=== PATIENT | female | born 1955 | race Caucasian/White ===

== ENCOUNTER 2018-03-17 12:40 | Inpatient (IN) | payer MEDICARE, OTHER ==
[~2018-03-17] VITALS: Ht 167.6 cm; Wt 80.7 kg
[2018-03-17] VITALS (7 sets, daily range): BP systolic 93–108; BP diastolic 34–57
[2018-03-17] MEDS: K, MAG and/or Phos replacement - Verify level? MC SCH (08:00)
[~2018-03-17 12:40] MED LIST: NORepinephrine bitartrate 8 MG in NS 250 ML BAG (32 mcg/ml) IV ONE; etomidate 2mg/ml inj. ONE; rocuronium 10mg/ml inj IV ONE
[2018-03-17 16:52] LABS: BASOPHILS # (AUTO) 0.1 X10'3 (0-0.2); BASOPHILS % (AUTO) 0.6 % (0-1); EOSINOPHILS # (AUTO) 0.1 X10'3 (0-0.9); EOSINOPHILS % (AUTO) 0.7 % (0-6); HEMATOCRIT 30.8 % (35.0-45.0); HEMOGLOBIN 10.1 g/dl (12.0-16.0); LYMPHOCYTES # (AUTO) 0.2 X10'3 (1.1-4.8); LYMPHOCYTES % (AUTO) 1.7 % (21-51); MEAN CORPUSCULAR HEMOGLOBIN 31.4 PG (27.0-31.0); MEAN CORPUSCULAR HGB CONC 32.7 % (33.0-36.5); MEAN PLATELET VOLUME 5.9 FL (7.4-10.4); MONOCYTES # (AUTO) 0.3 X10'3 (0-0.9); MONOCYTES % (AUTO) 2.1 % (2-12); NEUTROPHILS # (AUTO) 13.1 X10'3 (1.8-7.7); NEUTROPHILS % (AUTO) 94.9 % (42-75); PLATELET COUNT 425 X10'3 (140-440); WHITE BLOOD COUNT 13.8 X10'3 (4.5-11.0)
[2018-03-17 17:04] LABS: ALANINE AMINOTRANSFERASE 20 U/L (12-78); ALBUMIN 1.4 G/DL (3.4-5.0); ALBUMIN/GLOBULIN RATIO 0.4 (1.1-1.5); ALKALINE PHOSPHATASE 124 IU/L (46-116); ANION GAP 12 (8-16); ASPARTATE AMINO TRANSFERASE 27 U/L (10-37); BILIRUBIN,TOTAL 0.3 MG/DL (0.1-1.0); BLOOD UREA NITROGEN 26 MG/DL (7-18); BUN/CREATININE RATIO 6.8 (6.6-38.0); CALCIUM 7.9 MG/DL (8.5-10.1); CHLORIDE 99 MMOL/L (99-107); CREATININE 3.81 MG/DL (0.40-0.90); GLUCOSE 115 MG/DL (70-104); POTASSIUM 4.4 MMOL/L (3.5-5.1); SODIUM 127 MMOL/L (135-145); TOTAL CARBON DIOXIDE 16.4 MMOL/L (24-32); TOTAL PROTEIN 5.2 G/DL (6.4-8.2); eGFR 12 ML/MIN
[2018-03-17 17:26] LABS: TOTAL CELLS COUNTED 100
[2018-03-17 17:27] LABS: PLATELET ESTIMATE NORMAL
[2018-03-17 17:28] LABS: TOXIC GRANULATION 4+; TOXIC VACUOLATION 1+
[2018-03-17] MEDS ORDERED: MIDAZolam 5mg/ml 2ml vial ONE (17:28)
[2018-03-17] MEDS ORDERED: NORepinephrine 8mg/ 250ml NS 250 ML IV ONE (17:45)
[2018-03-17] MEDS ORDERED: magnesium 4gm in 100ml NS 100 ML IV PRN (18:10)
[2018-03-17] MEDS ORDERED: morphine 4 MG/ML inj SYRINge IV PRN (18:10)
[2018-03-17] MEDS ORDERED: Neutra Phos packet PO PRN (18:10)
[2018-03-17] MEDS ORDERED: magnesium Cl slow-release 64mg tablet PO PRN (18:10)
[2018-03-17] MEDS ORDERED: magnesium 1gm/100ml D5W IVPB 100 ML IV PRN (18:10)
[2018-03-17] MEDS ORDERED: potassium Cl 20 mEq SR tablet PO PRN ×2 (18:10)
[2018-03-17] MEDS ORDERED: morphine 2 MG/ML inj. syringe IV PRN (18:10)
[2018-03-17] MEDS ORDERED: sodium phosphate inj. 30 MMOL in dextrose 5%-water 250 ML IV PRN (18:10)
[2018-03-17] MEDS: midazolam 100mg in NS 100ml 100 ML IV PRN (18:34)
[2018-03-17 18:51] LABS: ABG BASE EXCESS -11.2 mmol/L (-2.0-3.0); ABG HCO3 15.3 mmol/L (22.0-26.0); ABG OXYGEN SATURATION 98.9 % (95-98); ABG PCO2 (T) 35.5 mmHg (32.0-45.0); ABG PH (T) 7.249 (7.350-7.450); ABG PO2 (T) 199.8 mmHg (83-108); ALLEN'S TEST Positive; FCOHb 0.3 % (0.5-1.5); FMetHb 0.2 % (0.3-1.12); FO2Hb 98.4 % (94-100); MINUTE VOLUME 7 L/min; PATIENT TEMPERATURE 36.4; PEEP 5 cm H2O; RESPIRATORY RATE 16 b/min; RESPIRATORY RATE (OBSERVED) 16 b/min; TIDAL VOLUME 450 mL; TOTAL HEMOGLOBIN 10.4 G/dl (12.0-16.0)
[2018-03-17] MEDS: FENTANYL-0.9 % NACL/PF 100 ML IV PRN (18:57)
[2018-03-17] MEDS ORDERED: vancomycin/NS 1 GM ADD-VANTAGE 250 ML IV ONE (19:05)
[2018-03-17] MEDS ORDERED: rocuronium 10mg/ml inj IV ONE (19:24)
[2018-03-17] MEDS ORDERED: vancomycin/NS 1 GM ADD-VANTAGE 250 ML X 1 DOSE IV PRN (19:40)
[2018-03-17] MEDS ORDERED: epiNEPHrine 0.1mg/ml 10ml syringe ONE (19:41)
[2018-03-17] MEDS ORDERED: sevoflurane 250ml liquid IH ONE (19:41)
[2018-03-17] MEDS ORDERED: vancomycin/NS 1 GM ADD-VANTAGE 250 ML IV SCH (20:00)
[2018-03-17] MEDS: piperacillin/tazo 3.375gm/50ml 50 ML IV SCH (21:51)
[2018-03-17] MEDS: famotidine/PF 10 mg/ml inj IV SCH (21:54)
[2018-03-17] MEDS: normal saline 1000ml 1,000 ML IV SCH (22:39)
[2018-03-18] VITALS (24 sets, daily range): BP systolic 66–114; BP diastolic 36–57
[2018-03-18] MEDS: piperacillin/tazo 3.375gm/50ml 50 ML IV SCH ×3 (00:02→16:54)
[2018-03-18 00:39] LABS: BASOPHILS % (AUTO) 0.3 % (0-1); EOSINOPHILS % (AUTO) 0.2 % (0-6); HEMOGLOBIN 9.8 g/dl (12.0-16.0); INR 1.5 INR; LYMPHOCYTES # (AUTO) 0.2 X10'3 (1.1-4.8); MEAN PLATELET VOLUME 6.2 FL (7.4-10.4); MONOCYTES # (AUTO) 0.3 X10'3 (0-0.9); PARTIAL THROMBOPLASTIN TIME 49 SECONDS (22-32); PROTHROMBIN TIME 15.5 SECONDS (9.0-12.0)
[2018-03-18 00:42] LABS: HEMATOCRIT 29.6 % (35.0-45.0); LYMPHOCYTES % (AUTO) 1.6 % (21-51); MEAN CORPUSCULAR HEMOGLOBIN 32.4 PG (27.0-31.0); MEAN CORPUSCULAR HGB CONC 33.2 % (33.0-36.5); MEAN CORPUSCULAR VOLUME 97.6 FL (78-98); MONOCYTES % (AUTO) 2.3 % (2-12); NEUTROPHILS # (AUTO) 13.9 X10'3 (1.8-7.7); NEUTROPHILS % (AUTO) 95.6 % (42-75); PLATELET COUNT 437 X10'3 (140-440); RED BLOOD COUNT 3.04 X10'6 (4.20-5.60); RED CELL DISTRIBUTION WIDTH 14.1 % (11.5-14.5); WHITE BLOOD COUNT 14.4 X10'3 (4.5-11.0)
[2018-03-18 00:45] LABS: ALANINE AMINOTRANSFERASE 17 U/L (12-78); ALBUMIN 1.1 G/DL (3.4-5.0); ALBUMIN/GLOBULIN RATIO 0.3 (1.1-1.5); ALKALINE PHOSPHATASE 104 IU/L (46-116); ANION GAP 15 (8-16); ASPARTATE AMINO TRANSFERASE 27 U/L (10-37); BILIRUBIN,TOTAL 0.4 MG/DL (0.1-1.0); BLOOD UREA NITROGEN 26 MG/DL (7-18); BUN/CREATININE RATIO 7.1 (6.6-38.0); CALCIUM 7.2 MG/DL (8.5-10.1); CHLORIDE 102 MMOL/L (99-107); CREATININE 3.64 MG/DL (0.40-0.90); GLUCOSE 126 MG/DL (70-104); MAGNESIUM 1.9 MG/DL (1.5-2.4); PHOSPHORUS 4.4 MG/DL (2.3-4.5); POTASSIUM 4.3 MMOL/L (3.5-5.1); SODIUM 132 MMOL/L (135-145); TOTAL CARBON DIOXIDE 15.5 MMOL/L (24-32); TOTAL PROTEIN 4.4 G/DL (6.4-8.2); eGFR 13 ML/MIN
[2018-03-18] MEDS ORDERED: normal saline 1000ml 1,000 ML IV ONE (00:55)
[2018-03-18 03:31] LABS: OXYGEN SATURATION (MIXED VEN) 79.7 % (60-80)
[2018-03-18 03:35] LABS: ABG BASE EXCESS -14.2 mmol/L (-2.0-3.0); ABG HCO3 12.7 mmol/L (22.0-26.0); ABG PCO2 (T) 32.2 mmHg (32.0-45.0); ABG PH (T) 7.211 (7.350-7.450); ABG PO2 (T) 126.3 mmHg (83-108); FCOHb 0.3 % (0.5-1.5); FMetHb 0.1 % (0.3-1.12); FO2Hb 97.6 % (94-100); MINUTE VOLUME 7 L/min; PATIENT TEMPERATURE 36.2; PEEP 5 cm H2O; RESPIRATORY RATE 16 b/min; RESPIRATORY RATE (OBSERVED) 16 b/min; TIDAL VOLUME 450 mL; TOTAL HEMOGLOBIN 10.1 G/dl (12.0-16.0)
[2018-03-18] MEDS ORDERED: sodium bicarbonate (8.4%) 1 mEq/ml syringe IV ONE (03:45)
[2018-03-18] MEDS ORDERED: albumin (Human) 5% 250ml BOTTLE IV STA (03:45)
[2018-03-18 05:01] LABS: TOTAL CELLS COUNTED 100
[2018-03-18 05:03] LABS: BURR CELLS 1+; PLATELET ESTIMATE NORMAL
[2018-03-18 05:04] LABS: TOXIC GRANULATION 3+; TOXIC VACUOLATION 1+
[2018-03-18] MEDS: K, MAG and/or Phos replacement - Verify level? MC SCH (08:00)
[2018-03-18] MEDS: famotidine/PF 10 mg/ml inj IV SCH ×2 (09:11→20:43)
[2018-03-18] MEDS: normal saline 1000ml 1,000 ML IV SCH (09:11)
[2018-03-18] MEDS ORDERED: [UNRECOGNIZED DRUG - REMARK] PO NR (10:00)
[2018-03-18] MEDS ORDERED: BUDE10.2 IH (10:12)
[2018-03-18] MEDS ORDERED: LISI-600 PO (10:12)
[2018-03-18] MEDS: FENTANYL-0.9 % NACL/PF 100 ML IV PRN (11:01)
[2018-03-18] MEDS ORDERED: vancomycin/NS 1 GM ADD-VANTAGE 250 ML X 1 DOSE IV ONE (11:45)
[2018-03-18] MEDS ORDERED: [UNRECOGNIZED DRUG - REMARK] PO SCH (11:48)
[2018-03-18] MEDS: sodium bicarbonate (8.4%) inj. 150 MEQ in dextrose 5%-water 1,000 ML IV SCH (12:23)
[2018-03-18] MEDS: vasopressin inj. 60 UNIT in normal saline 100ml IV soln 97 ML IV SCH (18:44)
[2018-03-18] MEDS ORDERED: Dextrose 10%-water IV solution 1,000 ML IV PRN (21:00)
[2018-03-18] MEDS: [UNRECOGNIZED DRUG - REMARK] IV SCH ×4 (21:09)
[2018-03-18] MEDS: NORepinephrine 8mg/ 250ml NS 250 ML IV SCH (21:56)
[2018-03-18 23:52] LABS: ALANINE AMINOTRANSFERASE 14 U/L (12-78); ALBUMIN 1.3 G/DL (3.4-5.0); ALBUMIN/GLOBULIN RATIO 0.5 (1.1-1.5); ALKALINE PHOSPHATASE 79 IU/L (46-116); ANION GAP 13 (8-16); ASPARTATE AMINO TRANSFERASE 24 U/L (10-37); BILIRUBIN,TOTAL 0.3 MG/DL (0.1-1.0); BLOOD UREA NITROGEN 27 MG/DL (7-18); BUN/CREATININE RATIO 6.3 (6.6-38.0); CALCIUM 6.8 MG/DL (8.5-10.1); CHLORIDE 104 MMOL/L (99-107); CREATININE 4.28 MG/DL (0.40-0.90); GLUCOSE 175 MG/DL (70-104); MAGNESIUM 1.8 MG/DL (1.5-2.4); PHOSPHORUS 4.4 MG/DL (2.3-4.5); POTASSIUM 4.2 MMOL/L (3.5-5.1); SODIUM 134 MMOL/L (135-145); TOTAL PROTEIN 4.1 G/DL (6.4-8.2); TRIGLYCERIDES 72 MG/DL (20-135); eGFR 10 ML/MIN
[2018-03-19] VITALS (29 sets, daily range): BP systolic 86–157; BP diastolic 36–67
[2018-03-19] MEDS: piperacillin/tazo 3.375gm/50ml 50 ML IV SCH ×3 (00:02→15:31)
[2018-03-19] MEDS: FENTANYL-0.9 % NACL/PF 100 ML IV PRN ×2 (01:04→15:53)
[2018-03-19] MEDS: midazolam 100mg in NS 100ml 100 ML IV PRN (01:04)
[2018-03-19] MEDS: VANCOMYCIN LEVEL IV SCH (03:00)
[2018-03-19 04:02] LABS: BASOPHILS % (AUTO) 0 % (0-1); EOSINOPHILS # (AUTO) 0.3 X10'3 (0-0.9); HEMATOCRIT 24.7 % (35.0-45.0); HEMOGLOBIN 8.1 g/dl (12.0-16.0); LYMPHOCYTES # (AUTO) 0.2 X10'3 (1.1-4.8); LYMPHOCYTES % (AUTO) 1.5 % (21-51); MEAN CORPUSCULAR HEMOGLOBIN 31.2 PG (27.0-31.0); MEAN CORPUSCULAR HGB CONC 32.7 % (33.0-36.5); MEAN CORPUSCULAR VOLUME 95.4 FL (78-98); MEAN PLATELET VOLUME 6.1 FL (7.4-10.4); MONOCYTES # (AUTO) 0.3 X10'3 (0-0.9); MONOCYTES % (AUTO) 2.2 % (2-12); NEUTROPHILS # (AUTO) 14.1 X10'3 (1.8-7.7); NEUTROPHILS % (AUTO) 94.3 % (42-75); PLATELET COUNT 321 X10'3 (140-440); RED BLOOD COUNT 2.59 X10'6 (4.20-5.60); RED CELL DISTRIBUTION WIDTH 15.5 % (11.5-14.5); WHITE BLOOD COUNT 14.9 X10'3 (4.5-11.0)
[2018-03-19 04:07] LABS: INR 1.6 INR; PARTIAL THROMBOPLASTIN TIME 48 SECONDS (22-32); PROTHROMBIN TIME 16.7 SECONDS (9.0-12.0)
[2018-03-19 04:16] LABS: ABG HCO3 16.3 mmol/L (22.0-26.0); ABG OXYGEN SATURATION 97.4 % (95-98); ABG PCO2 (T) 32.9 mmHg (32.0-45.0); ABG PH (T) 7.312 (7.350-7.450); ALLEN'S TEST Positive; FCOHb 0.1 % (0.5-1.5); FMetHb 0.1 % (0.3-1.12); FO2Hb 97.2 % (94-100); MINUTE VOLUME 7 L/min; PEEP 5 cm H2O; RESPIRATORY RATE 16 b/min; RESPIRATORY RATE (OBSERVED) 16 b/min; TIDAL VOLUME 450 mL; TOTAL HEMOGLOBIN 8.8 G/dl (12.0-16.0)
[2018-03-19 04:19] LABS: ALANINE AMINOTRANSFERASE 21 U/L (12-78); ALBUMIN 1.3 G/DL (3.4-5.0); ALBUMIN/GLOBULIN RATIO 0.4 (1.1-1.5); ALKALINE PHOSPHATASE 78 IU/L (46-116); ANION GAP 11 (8-16); ASPARTATE AMINO TRANSFERASE 23 U/L (10-37); BILIRUBIN,TOTAL 0.4 MG/DL (0.1-1.0); BLOOD UREA NITROGEN 28 MG/DL (7-18); BUN/CREATININE RATIO 6.3 (6.6-38.0); CALCIUM 6.8 MG/DL (8.5-10.1); CHLORIDE 105 MMOL/L (99-107); CREATININE 4.45 MG/DL (0.40-0.90); GLUCOSE 197 MG/DL (70-104); MAGNESIUM 1.8 MG/DL (1.5-2.4); PHOSPHORUS 4.3 MG/DL (2.3-4.5); POTASSIUM 4.2 MMOL/L (3.5-5.1); SODIUM 133 MMOL/L (135-145); TOTAL CARBON DIOXIDE 16.8 MMOL/L (24-32); TOTAL PROTEIN 4.2 G/DL (6.4-8.2); VANCOMYCIN,RANDOM 20.3 UG/ML; eGFR 10 ML/MIN
[2018-03-19] MEDS: K, MAG and/or Phos replacement - Verify level? MC SCH (06:52)
[2018-03-19] MEDS: sodium bicarbonate (8.4%) inj. 150 MEQ in dextrose 5%-water 1,000 ML IV SCH (07:24)
[2018-03-19] MEDS: famotidine/PF 10 mg/ml inj IV SCH ×2 (07:56→19:51)
[2018-03-19] MEDS ORDERED: NORepinephrine bitartrate 8 MG in NS 250 ML BAG (32 mcg/ml) IV ONE (09:50)
[2018-03-19] MEDS ORDERED: INSULIN R 100 UNIT in NS 100ML (1 UNIT/1 ML) BAG IV ONE (09:50)
[2018-03-19] MEDS ORDERED: sevoflurane 250ml liquid IH ONE (09:50)
[2018-03-19] MEDS ORDERED: rocuronium 10mg/ml inj IV ONE (10:08)
[2018-03-19] MEDS ORDERED: insulin regular, human vial - multi-dose ONE (10:38)
[2018-03-19] MEDS: NORepinephrine 8mg/ 250ml NS 250 ML IV SCH (11:47)
[2018-03-19] MEDS ORDERED: dextrose 50%-water 50ml dispensing syringe IV PRN ×2 (14:15)
[2018-03-19] MEDS ORDERED: MESSAGE TO PHARMACY PO ONE (14:15)
[2018-03-19] MEDS ORDERED: glucagon, human recombinant 1mg kit SUBCUT PRN (14:15)
[2018-03-19] MEDS ORDERED: dextrose ORAL solution 15 GM/59 ML bottle PO PRN ×2 (14:15)
[2018-03-19] MEDS: insulin regular, human vial - multi-dose SQ SCH ×2 (15:08→19:54)
[2018-03-19] MEDS ORDERED: Duosol 4K/3 Ca (w/calcium) 5,000 ML HE SCH (16:18)
[2018-03-19] MEDS ORDERED: calcium chloride inj. 1,000 MG in normal saline 100ml IV soln 100 ML IV PRN (16:20)
[2018-03-19] MEDS ORDERED: sodium phosphate inj. 30 MMOL in normal saline 250ml IV soln 250 ML IV PRN (16:20)
[2018-03-19] MEDS ORDERED: magnesium 4gm in 100ml NS 100 ML IV PRN (16:20)
[2018-03-19] MEDS: BICARB DIALYSIS W/CALCIUM SOL 5,000 ML HE SCH ×2 (16:56→16:57)
[2018-03-19] MEDS ORDERED: citrate dextrose 1000ml IV sol 1,000 ML IV PRN (18:15)
[2018-03-19] MEDS: Duosol 4k/NO Calcium 5,000 ML HE SCH ×3 (19:35→19:37)
[2018-03-19] MEDS: vasopressin inj. 60 UNIT in normal saline 100ml IV soln 97 ML IV SCH (19:51)
[2018-03-19 21:09] LABS: BASOPHILS # (AUTO) 0.1 X10'3 (0-0.2); BASOPHILS % (AUTO) 1.1 % (0-1); EOSINOPHILS # (AUTO) 0.2 X10'3 (0-0.9); EOSINOPHILS % (AUTO) 1.3 % (0-6); LYMPHOCYTES # (AUTO) 0.2 X10'3 (1.1-4.8); LYMPHOCYTES % (AUTO) 1.6 % (21-51); MEAN CORPUSCULAR HEMOGLOBIN 31.6 PG (27.0-31.0); MEAN CORPUSCULAR HGB CONC 32.7 % (33.0-36.5); MEAN CORPUSCULAR VOLUME 96.5 FL (78-98); MEAN PLATELET VOLUME 6.1 FL (7.4-10.4); MONOCYTES # (AUTO) 0.2 X10'3 (0-0.9); MONOCYTES % (AUTO) 1.8 % (2-12); NEUTROPHILS # (AUTO) 11.6 X10'3 (1.8-7.7); NEUTROPHILS % (AUTO) 94.2 % (42-75); PLATELET COUNT 200 X10'3 (140-440); RED BLOOD COUNT 2.22 X10'6 (4.20-5.60); RED CELL DISTRIBUTION WIDTH 15.4 % (11.5-14.5); WHITE BLOOD COUNT 12.3 X10'3 (4.5-11.0)
[2018-03-19 21:16] LABS: HEMATOCRIT 21.5 % (35.0-45.0)
[2018-03-19 21:20] LABS: ANION GAP 13 (8-16); BLOOD UREA NITROGEN 34 MG/DL (7-18); BUN/CREATININE RATIO 7.4 (6.6-38.0); CHLORIDE 102 MMOL/L (99-107); CREATININE 4.59 MG/DL (0.40-0.90); GLUCOSE 266 MG/DL (70-104); MAGNESIUM 1.7 MG/DL (1.5-2.4); PHOSPHORUS 4.1 MG/DL (2.3-4.5); POTASSIUM 4.2 MMOL/L (3.5-5.1); SODIUM 133 MMOL/L (135-145); TOTAL CARBON DIOXIDE 18.2 MMOL/L (24-32); eGFR 10 ML/MIN
[2018-03-19] MEDS: insulin glargine (Lantus) pen - multi-dose SQ SCH (21:48)
[2018-03-19] MEDS: citrate dextrose 1000ml IV sol 1,000 ML IV PRN (23:00)
[2018-03-19] MEDS: calcium chloride inj. 10,000 MG in normal saline 500ml IV soln 400 ML IV PRN (23:00)
[2018-03-19 23:56] LABS: LARGE PLATELETS FEW; PLATELET ESTIMATE NORMAL; TOTAL CELLS COUNTED 100
[2018-03-19 23:57] LABS: ANISOCYTOSIS FEW; HYPOCHROMASIA 1+; TOXIC GRANULATION 1+
[2018-03-20] VITALS (25 sets, daily range): BP systolic 98–125; BP diastolic 46–64
[2018-03-20] MEDS: piperacillin/tazo 3.375gm/50ml 50 ML IV SCH ×3 (00:05→15:45)
[2018-03-20] MEDS: midazolam 100mg in NS 100ml 100 ML IV PRN (00:50)
[2018-03-20] MEDS: citrate dextrose 1000ml IV sol 1,000 ML IV PRN ×7 (01:17→21:21)
[2018-03-20] MEDS: insulin regular, human vial - multi-dose SQ SCH ×4 (02:35→21:30)
[2018-03-20] MEDS: [UNRECOGNIZED DRUG - REMARK] IV SCH ×4 (02:36)
[2018-03-20 02:55] LABS: HEMOGLOBIN A1C 5.7 % (4.5-6.2)
[2018-03-20 02:58] LABS: INR 1.4 INR; PARTIAL THROMBOPLASTIN TIME 49 SECONDS (22-32); PROTHROMBIN TIME 14.5 SECONDS (9.0-12.0)
[2018-03-20 03:00] LABS: ALANINE AMINOTRANSFERASE 15 U/L (12-78); ALBUMIN 1.1 G/DL (3.4-5.0); ALBUMIN/GLOBULIN RATIO 0.4 (1.1-1.5); ALKALINE PHOSPHATASE 66 IU/L (46-116); ANION GAP 8 (8-16); ASPARTATE AMINO TRANSFERASE 25 U/L (10-37); BILIRUBIN,TOTAL 0.5 MG/DL (0.1-1.0); BLOOD UREA NITROGEN 29 MG/DL (7-18); BUN/CREATININE RATIO 8.1 (6.6-38.0); CALCIUM 7.2 MG/DL (8.5-10.1); CHLORIDE 105 MMOL/L (99-107); CREATININE 3.56 MG/DL (0.40-0.90); GLUCOSE 252 MG/DL (70-104); MAGNESIUM 2.6 MG/DL (1.5-2.4); PHOSPHORUS 3.3 MG/DL (2.3-4.5); PREALBUMIN 5.4 MG/DL (19-36); SODIUM 135 MMOL/L (135-145); TOTAL CARBON DIOXIDE 21.8 MMOL/L (24-32); TRIGLYCERIDES 43 MG/DL (20-135); VANCOMYCIN,RANDOM 12.8 UG/ML; eGFR 13 ML/MIN
[2018-03-20] MEDS: VANCOMYCIN LEVEL IV SCH (03:00)
[2018-03-20 03:20] LABS: HEMATOCRIT 26.9 % (35.0-45.0); HEMOGLOBIN 8.9 g/dl (12.0-16.0); MEAN CORPUSCULAR HEMOGLOBIN 29.9 PG (27.0-31.0); MEAN CORPUSCULAR VOLUME 90.4 FL (78-98); RED BLOOD COUNT 2.98 X10'6 (4.20-5.60); RED CELL DISTRIBUTION WIDTH 20.5 % (11.5-14.5); WHITE BLOOD COUNT 16.2 X10'3 (4.5-11.0)
[2018-03-20 03:36] LABS: ABG BASE EXCESS -8.6 mmol/L (-2.0-3.0); ABG HCO3 18.7 mmol/L (22.0-26.0); ABG OXYGEN SATURATION 94.5 % (95-98); ABG PCO2 (T) 44.8 mmHg (32.0-45.0); ABG PH (T) 7.234 (7.350-7.450); ABG PO2 (T) 76.2 mmHg (83-108); ALLEN'S TEST Positive; FCOHb 0.2 % (0.5-1.5); FMetHb 0.1 % (0.3-1.12); FO2Hb 94.2 % (94-100); MINUTE VOLUME 8 L/min; PATIENT TEMPERATURE 36.3; PEEP 5 cm H2O; RESPIRATORY RATE 16 b/min; RESPIRATORY RATE (OBSERVED) 16 b/min; TIDAL VOLUME 450 mL
[2018-03-20 03:55] LABS: PLATELET COUNT 70 X10'3 (140-440)
[2018-03-20 03:58] LABS: TOTAL CELLS COUNTED 100
[2018-03-20 03:59] LABS: ANISOCYTOSIS 2+; BURR CELLS FEW; PLATELET ESTIMATE DECREASED; POLYCHROMASIA 1+; TOXIC GRANULATION 2+
[2018-03-20 04:00] LABS: POIKILOCYTOSIS 1+
[2018-03-20] MEDS: Duosol 4k/NO Calcium 5,000 ML HE SCH ×10 (04:56→23:50)
[2018-03-20] MEDS: famotidine/PF 10 mg/ml inj IV SCH ×2 (07:16→21:21)
[2018-03-20] MEDS: K, MAG and/or Phos replacement - Verify level? MC SCH (07:23)
[2018-03-20 07:25] LABS: BASOPHILS % (AUTO) 0 % (0-1); EOSINOPHILS # (AUTO) 0.4 X10'3 (0-0.9); EOSINOPHILS % (AUTO) 2.5 % (0-6); HEMOGLOBIN 9.4 g/dl (12.0-16.0); LYMPHOCYTES # (AUTO) 0.3 X10'3 (1.1-4.8); LYMPHOCYTES % (AUTO) 1.7 % (21-51); MEAN CORPUSCULAR HEMOGLOBIN 29.6 PG (27.0-31.0); MEAN CORPUSCULAR HGB CONC 32.3 % (33.0-36.5); MEAN CORPUSCULAR VOLUME 91.9 FL (78-98); MEAN PLATELET VOLUME 7.1 FL (7.4-10.4); MONOCYTES # (AUTO) 0.3 X10'3 (0-0.9); MONOCYTES % (AUTO) 1.6 % (2-12); NEUTROPHILS % (AUTO) 94.2 % (42-75); PLATELET COUNT 88 X10'3 (140-440); RED BLOOD COUNT 3.16 X10'6 (4.20-5.60); RED CELL DISTRIBUTION WIDTH 20.8 % (11.5-14.5); WHITE BLOOD COUNT 15.9 X10'3 (4.5-11.0)
[2018-03-20 07:30] LABS: ALBUMIN 1.2 G/DL (3.4-5.0); ANION GAP 9 (8-16); BLOOD UREA NITROGEN 24 MG/DL (7-18); BUN/CREATININE RATIO 7.9 (6.6-38.0); CHLORIDE 104 MMOL/L (99-107); CREATININE 3.03 MG/DL (0.40-0.90); GLUCOSE 210 MG/DL (70-104); MAGNESIUM 2.3 MG/DL (1.5-2.4); PHOSPHORUS 2.8 MG/DL (2.3-4.5); POTASSIUM 3.9 MMOL/L (3.5-5.1); SODIUM 135 MMOL/L (135-145); TOTAL CARBON DIOXIDE 21.6 MMOL/L (24-32); eGFR 16 ML/MIN
[2018-03-20] MEDS ORDERED: vancomycin/NS 1 GM ADD-VANTAGE 250 ML X 1 DOSE IV ONE (08:00)
[2018-03-20 11:05] LABS: ALBUMIN 1.2 G/DL (3.4-5.0); ANION GAP 9 (8-16); BLOOD UREA NITROGEN 23 MG/DL (7-18); BUN/CREATININE RATIO 8.4 (6.6-38.0); CHLORIDE 103 MMOL/L (99-107); CREATININE 2.73 MG/DL (0.40-0.90); GLUCOSE 327 MG/DL (70-104); MAGNESIUM 2.1 MG/DL (1.5-2.4); PHOSPHORUS 3.1 MG/DL (2.3-4.5); POTASSIUM 4.2 MMOL/L (3.5-5.1); SODIUM 135 MMOL/L (135-145); TOTAL CARBON DIOXIDE 22.8 MMOL/L (24-32); eGFR 18 ML/MIN
[2018-03-20 11:14] LABS: BASOPHILS % (AUTO) 0.1 % (0-1); EOSINOPHILS # (AUTO) 0.5 X10'3 (0-0.9); EOSINOPHILS % (AUTO) 2.9 % (0-6); HEMATOCRIT 28.1 % (35.0-45.0); HEMOGLOBIN 9.4 g/dl (12.0-16.0); LYMPHOCYTES # (AUTO) 0.3 X10'3 (1.1-4.8); LYMPHOCYTES % (AUTO) 1.7 % (21-51); MEAN CORPUSCULAR HEMOGLOBIN 30.1 PG (27.0-31.0); MEAN CORPUSCULAR HGB CONC 33.2 % (33.0-36.5); MEAN CORPUSCULAR VOLUME 90.5 FL (78-98); MEAN PLATELET VOLUME 6.4 FL (7.4-10.4); MONOCYTES # (AUTO) 0.3 X10'3 (0-0.9); NEUTROPHILS # (AUTO) 14.5 X10'3 (1.8-7.7); NEUTROPHILS % (AUTO) 93.3 % (42-75); PLATELET COUNT 107 X10'3 (140-440); RED BLOOD COUNT 3.11 X10'6 (4.20-5.60); RED CELL DISTRIBUTION WIDTH 21.2 % (11.5-14.5); WHITE BLOOD COUNT 15.6 X10'3 (4.5-11.0)
[2018-03-20] MEDS: calcium chloride inj. 10,000 MG in normal saline 500ml IV soln 400 ML IV PRN (11:51)
[2018-03-20] MEDS: NORepinephrine 8mg/ 250ml NS 250 ML IV SCH (14:59)
[2018-03-20 15:07] LABS: BASOPHILS # (AUTO) 0.1 X10'3 (0-0.2); BASOPHILS % (AUTO) 0.6 % (0-1); EOSINOPHILS # (AUTO) 0.5 X10'3 (0-0.9); EOSINOPHILS % (AUTO) 3.7 % (0-6); HEMATOCRIT 27.2 % (35.0-45.0); HEMOGLOBIN 8.9 g/dl (12.0-16.0); LYMPHOCYTES # (AUTO) 0.3 X10'3 (1.1-4.8); LYMPHOCYTES % (AUTO) 2.3 % (21-51); MEAN CORPUSCULAR HEMOGLOBIN 29.7 PG (27.0-31.0); MEAN CORPUSCULAR HGB CONC 32.9 % (33.0-36.5); MEAN CORPUSCULAR VOLUME 90.4 FL (78-98); MEAN PLATELET VOLUME 7.6 FL (7.4-10.4); MONOCYTES # (AUTO) 0.3 X10'3 (0-0.9); MONOCYTES % (AUTO) 2.6 % (2-12); NEUTROPHILS # (AUTO) 12.1 X10'3 (1.8-7.7); NEUTROPHILS % (AUTO) 90.8 % (42-75); PLATELET COUNT 74 X10'3 (140-440); RED BLOOD COUNT 3.01 X10'6 (4.20-5.60); RED CELL DISTRIBUTION WIDTH 21.1 % (11.5-14.5); WHITE BLOOD COUNT 13.4 X10'3 (4.5-11.0)
[2018-03-20 15:20] LABS: ALBUMIN 1.1 G/DL (3.4-5.0); ANION GAP 7 (8-16); BLOOD UREA NITROGEN 22 MG/DL (7-18); BUN/CREATININE RATIO 9.6 (6.6-38.0); CHLORIDE 103 MMOL/L (99-107); CREATININE 2.29 MG/DL (0.40-0.90); GLUCOSE 294 MG/DL (70-104); MAGNESIUM 2.1 MG/DL (1.5-2.4); PHOSPHORUS 2.6 MG/DL (2.3-4.5); POTASSIUM 4.1 MMOL/L (3.5-5.1); SODIUM 135 MMOL/L (135-145); TOTAL CARBON DIOXIDE 25.3 MMOL/L (24-32); eGFR 22 ML/MIN
[2018-03-20 21:21] LABS: BASOPHILS # (AUTO) 0.2 X10'3 (0-0.2); BASOPHILS % (AUTO) 0.9 % (0-1); EOSINOPHILS # (AUTO) 0.6 X10'3 (0-0.9); EOSINOPHILS % (AUTO) 4.1 % (0-6); HEMATOCRIT 27.8 % (35.0-45.0); LYMPHOCYTES # (AUTO) 0.3 X10'3 (1.1-4.8); MEAN CORPUSCULAR HEMOGLOBIN 29.6 PG (27.0-31.0); MEAN CORPUSCULAR HGB CONC 32.5 % (33.0-36.5); MEAN CORPUSCULAR VOLUME 90.8 FL (78-98); MEAN PLATELET VOLUME 7.1 FL (7.4-10.4); MONOCYTES # (AUTO) 0.4 X10'3 (0-0.9); MONOCYTES % (AUTO) 2.2 % (2-12); NEUTROPHILS # (AUTO) 14.5 X10'3 (1.8-7.7); NEUTROPHILS % (AUTO) 90.8 % (42-75); PLATELET COUNT 102 X10'3 (140-440); RED BLOOD COUNT 3.06 X10'6 (4.20-5.60); RED CELL DISTRIBUTION WIDTH 20.9 % (11.5-14.5)
[2018-03-20] MEDS: insulin glargine (Lantus) pen - multi-dose SQ SCH (21:32)
[2018-03-20 21:41] LABS: ALBUMIN 1.1 G/DL (3.4-5.0); ANION GAP 8 (8-16); BLOOD UREA NITROGEN 19 MG/DL (7-18); BUN/CREATININE RATIO 9.3 (6.6-38.0); CHLORIDE 104 MMOL/L (99-107); CREATININE 2.05 MG/DL (0.40-0.90); GLUCOSE 135 MG/DL (70-104); PHOSPHORUS 2.1 MG/DL (2.3-4.5); SODIUM 136 MMOL/L (135-145); TOTAL CARBON DIOXIDE 24.4 MMOL/L (24-32); eGFR 25 ML/MIN
[2018-03-20] MEDS: FENTANYL-0.9 % NACL/PF 100 ML IV PRN (21:43)
[2018-03-20 21:50] LABS: POTASSIUM 4.1 MMOL/L (3.5-5.1)
[2018-03-20] MEDS: piperacillin/tazobactam inj. 2.25 GM in normal saline 50ml IV IV SCH (23:48)
[2018-03-21] VITALS (26 sets, daily range): BP systolic 104–148; BP diastolic 48–66
[2018-03-21] MEDS: citrate dextrose 1000ml IV sol 1,000 ML IV PRN ×7 (02:25→22:45)
[2018-03-21] MEDS: calcium chloride inj. 10,000 MG in normal saline 500ml IV soln 400 ML IV PRN ×2 (02:25→18:02)
[2018-03-21] MEDS: VANCOMYCIN LEVEL IV SCH (03:00)
[2018-03-21] MEDS: insulin regular, human vial - multi-dose SQ SCH ×4 (03:01→20:45)
[2018-03-21 03:02] LABS: HEMATOCRIT 26.8 % (35.0-45.0); HEMOGLOBIN 8.9 g/dl (12.0-16.0); MEAN CORPUSCULAR HEMOGLOBIN 30.1 PG (27.0-31.0); MEAN CORPUSCULAR HGB CONC 33.3 % (33.0-36.5); MEAN CORPUSCULAR VOLUME 90.6 FL (78-98); MEAN PLATELET VOLUME 6.9 FL (7.4-10.4); PLATELET COUNT 83 X10'3 (140-440); RED BLOOD COUNT 2.96 X10'6 (4.20-5.60); RED CELL DISTRIBUTION WIDTH 20.6 % (11.5-14.5); WHITE BLOOD COUNT 15.1 X10'3 (4.5-11.0)
[2018-03-21] MEDS: [UNRECOGNIZED DRUG - REMARK] IV SCH ×4 (03:09)
[2018-03-21 03:14] LABS: INR 1.2 INR; PARTIAL THROMBOPLASTIN TIME 36 SECONDS (22-32); PROTHROMBIN TIME 12.7 SECONDS (9.0-12.0)
[2018-03-21 03:22] LABS: ALANINE AMINOTRANSFERASE 26 U/L (12-78); ALBUMIN 1.1 G/DL (3.4-5.0); ALBUMIN/GLOBULIN RATIO 0.3 (1.1-1.5); ALKALINE PHOSPHATASE 69 IU/L (46-116); ANION GAP 7 (8-16); ASPARTATE AMINO TRANSFERASE 33 U/L (10-37); BILIRUBIN,TOTAL 0.2 MG/DL (0.1-1.0); BLOOD UREA NITROGEN 18 MG/DL (7-18); CALCIUM 8.7 MG/DL (8.5-10.1); CHLORIDE 105 MMOL/L (99-107); GLUCOSE 114 MG/DL (70-104); MAGNESIUM 1.9 MG/DL (1.5-2.4); PHOSPHORUS 1.9 MG/DL (2.3-4.5); SODIUM 137 MMOL/L (135-145); TOTAL CARBON DIOXIDE 25.5 MMOL/L (24-32); TOTAL PROTEIN 4.6 G/DL (6.4-8.2); VANCOMYCIN,RANDOM 13.4 UG/ML; eGFR 29 ML/MIN
[2018-03-21 03:31] LABS: POTASSIUM 3.9 MMOL/L (3.5-5.1)
[2018-03-21 03:47] LABS: ANISOCYTOSIS 3+; PLATELET ESTIMATE DECREASED; POLYCHROMASIA FEW; TOTAL CELLS COUNTED 100; TOXIC GRANULATION 2+; TOXIC VACUOLATION 1+
[2018-03-21 03:56] LABS: ABG BASE EXCESS -3.8 mmol/L (-2.0-3.0); ABG HCO3 21.8 mmol/L (22.0-26.0); ABG OXYGEN SATURATION 94.7 % (95-98); ABG PCO2 (T) 39.2 mmHg (32.0-45.0); ABG PH (T) 7.357 (7.350-7.450); ABG PO2 (T) 67.9 mmHg (83-108); FMetHb 0.3 % (0.3-1.12); FO2Hb 94.4 % (94-100); MINUTE VOLUME 9 L/min; PATIENT TEMPERATURE 35.7; PEEP 5 cm H2O; RESPIRATORY RATE 20 b/min; RESPIRATORY RATE (OBSERVED) 20 b/min; TIDAL VOLUME 450 mL; TOTAL HEMOGLOBIN 10.1 G/dl (12.0-16.0)
[2018-03-21] MEDS: sodium phosphate inj. 15 MMOL in dextrose 5%-water 150 ML IV PRN ×2 (05:31→16:57)
[2018-03-21] MEDS: vasopressin inj. 60 UNIT in normal saline 100ml IV soln 97 ML IV SCH (05:31)
[2018-03-21] MEDS: piperacillin/tazobactam inj. 2.25 GM in normal saline 50ml IV IV SCH ×2 (08:00→16:22)
[2018-03-21] MEDS: K, MAG and/or Phos replacement - Verify level? MC SCH (08:00)
[2018-03-21] MEDS ORDERED: vancomycin inj 1,250 MG in normal saline 250ml IV soln 250 ML IV PRN (08:10)
[2018-03-21] MEDS: Duosol 4k/NO Calcium 5,000 ML HE SCH ×4 (08:17→20:40)
[2018-03-21] MEDS ORDERED: vancomycin inj 1,250 MG in normal saline 250ml IV soln 250 ML IV ONE (08:30)
[2018-03-21 08:54] LABS: BASOPHILS % (AUTO) 0.2 % (0-1); EOSINOPHILS # (AUTO) 0.5 X10'3 (0-0.9); EOSINOPHILS % (AUTO) 3.7 % (0-6); HEMATOCRIT 25.8 % (35.0-45.0); HEMOGLOBIN 8.3 g/dl (12.0-16.0); LYMPHOCYTES # (AUTO) 0.5 X10'3 (1.1-4.8); LYMPHOCYTES % (AUTO) 3.2 % (21-51); MEAN CORPUSCULAR HEMOGLOBIN 29.3 PG (27.0-31.0); MEAN CORPUSCULAR HGB CONC 32.2 % (33.0-36.5); MEAN CORPUSCULAR VOLUME 90.9 FL (78-98); MONOCYTES # (AUTO) 0.4 X10'3 (0-0.9); NEUTROPHILS % (AUTO) 89.9 % (42-75); PLATELET COUNT 61 X10'3 (140-440); RED BLOOD COUNT 2.84 X10'6 (4.20-5.60); WHITE BLOOD COUNT 14.4 X10'3 (4.5-11.0)
[2018-03-21 09:06] LABS: ANION GAP 5 (8-16); BLOOD UREA NITROGEN 15 MG/DL (7-18); BUN/CREATININE RATIO 10.5 (6.6-38.0); CHLORIDE 106 MMOL/L (99-107); CREATININE 1.43 MG/DL (0.40-0.90); GLUCOSE 209 MG/DL (70-104); MAGNESIUM 1.7 MG/DL (1.5-2.4); PHOSPHORUS 2.6 MG/DL (2.3-4.5); POTASSIUM 3.8 MMOL/L (3.5-5.1); SODIUM 138 MMOL/L (135-145); TOTAL CARBON DIOXIDE 26.7 MMOL/L (24-32); eGFR 37 ML/MIN
[2018-03-21 09:12] LABS: PLATELET ESTIMATE DECREASED; TOTAL CELLS COUNTED 100; TOXIC GRANULATION 1+; TOXIC VACUOLATION 1+
[2018-03-21 09:13] LABS: ANISOCYTOSIS 3+
[2018-03-21] MEDS: famotidine/PF 10 mg/ml inj IV SCH ×2 (09:17→20:39)
[2018-03-21 12:13] LABS: BASOPHILS # (AUTO) 0.1 X10'3 (0-0.2); BASOPHILS % (AUTO) 0.8 % (0-1); EOSINOPHILS # (AUTO) 0.5 X10'3 (0-0.9); EOSINOPHILS % (AUTO) 3.7 % (0-6); HEMATOCRIT 25.2 % (35.0-45.0); HEMOGLOBIN 8.2 g/dl (12.0-16.0); LYMPHOCYTES # (AUTO) 0.4 X10'3 (1.1-4.8); LYMPHOCYTES % (AUTO) 2.8 % (21-51); MEAN CORPUSCULAR HEMOGLOBIN 29.3 PG (27.0-31.0); MEAN CORPUSCULAR HGB CONC 32.4 % (33.0-36.5); MEAN CORPUSCULAR VOLUME 90.4 FL (78-98); MEAN PLATELET VOLUME 8.2 FL (7.4-10.4); MONOCYTES # (AUTO) 0.5 X10'3 (0-0.9); MONOCYTES % (AUTO) 3.2 % (2-12); NEUTROPHILS # (AUTO) 12.6 X10'3 (1.8-7.7); NEUTROPHILS % (AUTO) 89.5 % (42-75); PLATELET COUNT 65 X10'3 (140-440); RED BLOOD COUNT 2.78 X10'6 (4.20-5.60); RED CELL DISTRIBUTION WIDTH 20.9 % (11.5-14.5); WHITE BLOOD COUNT 14.1 X10'3 (4.5-11.0)
[2018-03-21 12:26] LABS: ANION GAP 7 (8-16); BLOOD UREA NITROGEN 14 MG/DL (7-18); BUN/CREATININE RATIO 9.9 (6.6-38.0); CHLORIDE 106 MMOL/L (99-107); CREATININE 1.42 MG/DL (0.40-0.90); GLUCOSE 175 MG/DL (70-104); MAGNESIUM 1.6 MG/DL (1.5-2.4); PHOSPHORUS 2.3 MG/DL (2.3-4.5); POTASSIUM 3.6 MMOL/L (3.5-5.1); SODIUM 137 MMOL/L (135-145); TOTAL CARBON DIOXIDE 24.2 MMOL/L (24-32); eGFR 37 ML/MIN
[2018-03-21] MEDS: NORepinephrine 8mg/ 250ml NS 250 ML IV SCH (19:32)
[2018-03-21 19:37] LABS: BASOPHILS % (AUTO) 0 % (0-1); EOSINOPHILS # (AUTO) 0.5 X10'3 (0-0.9); EOSINOPHILS % (AUTO) 2.3 % (0-6); HEMOGLOBIN 8.5 g/dl (12.0-16.0); LYMPHOCYTES # (AUTO) 0.4 X10'3 (1.1-4.8); MEAN CORPUSCULAR HEMOGLOBIN 29.6 PG (27.0-31.0); MEAN CORPUSCULAR HGB CONC 32.9 % (33.0-36.5); MEAN CORPUSCULAR VOLUME 90.2 FL (78-98); MONOCYTES # (AUTO) 0.3 X10'3 (0-0.9); MONOCYTES % (AUTO) 1.4 % (2-12); NEUTROPHILS % (AUTO) 94.3 % (42-75); RED BLOOD COUNT 2.88 X10'6 (4.20-5.60); RED CELL DISTRIBUTION WIDTH 20.4 % (11.5-14.5); WHITE BLOOD COUNT 20.1 X10'3 (4.5-11.0)
[2018-03-21 19:52] LABS: ALBUMIN 1.1 G/DL (3.4-5.0); ANION GAP 5 (8-16); BLOOD UREA NITROGEN 16 MG/DL (7-18); CHLORIDE 104 MMOL/L (99-107); CREATININE 1.33 MG/DL (0.40-0.90); GLUCOSE 145 MG/DL (70-104); MAGNESIUM 1.8 MG/DL (1.5-2.4); PHOSPHORUS 2.6 MG/DL (2.3-4.5); POTASSIUM 3.8 MMOL/L (3.5-5.1); SODIUM 137 MMOL/L (135-145); TOTAL CARBON DIOXIDE 28.1 MMOL/L (24-32); eGFR 40 ML/MIN
[2018-03-21 19:56] LABS: PLATELET COUNT 30 X10'3 (140-440)
[2018-03-21] MEDS: lactobacillus rhamnosus 10,000 MMU CELLS/CAPSULE PO SCH (20:39)
[2018-03-21] MEDS: insulin glargine (Lantus) pen - multi-dose SQ SCH (20:47)
[2018-03-22] VITALS (24 sets, daily range): BP systolic 85–142; BP diastolic 49–103
[2018-03-22] MEDS: piperacillin/tazobactam inj. 2.25 GM in normal saline 50ml IV IV SCH ×4 (00:25→23:51)
[2018-03-22] MEDS: [UNRECOGNIZED DRUG - REMARK] IV SCH ×8 (01:47→23:52)
[2018-03-22] MEDS: citrate dextrose 1000ml IV sol 1,000 ML IV PRN ×4 (01:48→21:05)
[2018-03-22] MEDS: midazolam 100mg in NS 100ml 100 ML IV PRN (02:45)
[2018-03-22] MEDS: insulin regular, human vial - multi-dose SQ SCH ×3 (02:48→22:33)
[2018-03-22] MEDS: VANCOMYCIN LEVEL IV SCH (03:00)
[2018-03-22 03:07] LABS: BASOPHILS % (AUTO) 0 % (0-1); EOSINOPHILS # (AUTO) 0.6 X10'3 (0-0.9); EOSINOPHILS % (AUTO) 3.4 % (0-6); HEMATOCRIT 22.3 % (35.0-45.0); HEMOGLOBIN 7.4 g/dl (12.0-16.0); LYMPHOCYTES # (AUTO) 0.4 X10'3 (1.1-4.8); LYMPHOCYTES % (AUTO) 2.3 % (21-51); MEAN CORPUSCULAR HEMOGLOBIN 30.2 PG (27.0-31.0); MEAN CORPUSCULAR HGB CONC 33.3 % (33.0-36.5); MEAN CORPUSCULAR VOLUME 90.8 FL (78-98); MEAN PLATELET VOLUME 8.4 FL (7.4-10.4); MONOCYTES # (AUTO) 0.4 X10'3 (0-0.9); MONOCYTES % (AUTO) 2.6 % (2-12); NEUTROPHILS % (AUTO) 91.7 % (42-75); PLATELET COUNT 96 X10'3 (140-440); RED BLOOD COUNT 2.46 X10'6 (4.20-5.60); RED CELL DISTRIBUTION WIDTH 20.2 % (11.5-14.5); WHITE BLOOD COUNT 16.3 X10'3 (4.5-11.0)
[2018-03-22] MEDS: Duosol 4k/NO Calcium 5,000 ML HE SCH ×3 (03:17→11:55)
[2018-03-22 03:21] LABS: INR 1.1 INR; PARTIAL THROMBOPLASTIN TIME 32 SECONDS (22-32); PROTHROMBIN TIME 11.5 SECONDS (9.0-12.0)
[2018-03-22 03:26] LABS: ALBUMIN 1.2 G/DL (3.4-5.0); ANION GAP 6 (8-16); BLOOD UREA NITROGEN 14 MG/DL (7-18); BUN/CREATININE RATIO 11.5 (6.6-38.0); CHLORIDE 104 MMOL/L (99-107); CREATININE 1.22 MG/DL (0.40-0.90); GLUCOSE 108 MG/DL (70-104); MAGNESIUM 1.7 MG/DL (1.5-2.4); PHOSPHORUS 2.2 MG/DL (2.3-4.5); SODIUM 138 MMOL/L (135-145); TOTAL CARBON DIOXIDE 27.8 MMOL/L (24-32); VANCOMYCIN,RANDOM 16.6 UG/ML; eGFR 45 ML/MIN
[2018-03-22 03:40] LABS: POTASSIUM 3.7 MMOL/L (3.5-5.1)
[2018-03-22 03:56] LABS: ABG BASE EXCESS 1.4 mmol/L (-2.0-3.0); ABG HCO3 27.2 mmol/L (22.0-26.0); ABG OXYGEN SATURATION 96.7 % (95-98); ABG PCO2 (T) 47.2 mmHg (32.0-45.0); ABG PH (T) 7.375 (7.350-7.450); ABG PO2 (T) 84.1 mmHg (83-108); FCOHb 0.1 % (0.5-1.5); FO2Hb 96.6 % (94-100); MINUTE VOLUME 10 L/min; PATIENT TEMPERATURE 36.4; PEEP 5 cm H2O; RESPIRATORY RATE 20 b/min; RESPIRATORY RATE (OBSERVED) 20 b/min; TIDAL VOLUME 450 mL; TOTAL HEMOGLOBIN 9.2 G/dl (12.0-16.0)
[2018-03-22 04:00] LABS: ALANINE AMINOTRANSFERASE 17 U/L (12-78); ALBUMIN 1.2 G/DL (3.4-5.0); ALBUMIN/GLOBULIN RATIO 0.3 (1.1-1.5); ALKALINE PHOSPHATASE 82 IU/L (46-116); ANION GAP 8 (8-16); ASPARTATE AMINO TRANSFERASE 33 U/L (10-37); BILIRUBIN,TOTAL 0.2 MG/DL (0.1-1.0); BLOOD UREA NITROGEN 14 MG/DL (7-18); BUN/CREATININE RATIO 11.8 (6.6-38.0); CALCIUM 9.1 MG/DL (8.5-10.1); CHLORIDE 104 MMOL/L (99-107); CREATININE 1.19 MG/DL (0.40-0.90); GLUCOSE 108 MG/DL (70-104); SODIUM 138 MMOL/L (135-145); TOTAL CARBON DIOXIDE 26.5 MMOL/L (24-32); TOTAL PROTEIN 4.8 G/DL (6.4-8.2); eGFR 46 ML/MIN
[2018-03-22 04:04] LABS: POTASSIUM 3.7 MMOL/L (3.5-5.1)
[2018-03-22] MEDS: calcium chloride inj. 10,000 MG in normal saline 500ml IV soln 400 ML IV PRN ×2 (04:29→21:04)
[2018-03-22] MEDS: FENTANYL-0.9 % NACL/PF 100 ML IV PRN (05:54)
[2018-03-22] MEDS: K, MAG and/or Phos replacement - Verify level? MC SCH (08:00)
[2018-03-22] MEDS: potassium Cl 20mEq/100mL bag 100 ML IV PRN ×2 (08:16→17:48)
[2018-03-22] MEDS: lactobacillus rhamnosus 10,000 MMU CELLS/CAPSULE PO SCH ×2 (08:17→21:03)
[2018-03-22] MEDS: famotidine/PF 10 mg/ml inj IV SCH ×2 (08:17→21:03)
[2018-03-22 11:23] LABS: BASOPHILS % (AUTO) 0 % (0-1); EOSINOPHILS # (AUTO) 0.7 X10'3 (0-0.9); HEMATOCRIT 23.5 % (35.0-45.0); HEMOGLOBIN 7.5 g/dl (12.0-16.0); LYMPHOCYTES # (AUTO) 0.3 X10'3 (1.1-4.8); MEAN CORPUSCULAR HEMOGLOBIN 29.5 PG (27.0-31.0); MEAN CORPUSCULAR HGB CONC 32.1 % (33.0-36.5); MEAN CORPUSCULAR VOLUME 91.8 FL (78-98); MONOCYTES # (AUTO) 0.5 X10'3 (0-0.9); MONOCYTES % (AUTO) 2.9 % (2-12); NEUTROPHILS # (AUTO) 15.9 X10'3 (1.8-7.7); NEUTROPHILS % (AUTO) 91.1 % (42-75); PLATELET COUNT 94 X10'3 (140-440); RED BLOOD COUNT 2.56 X10'6 (4.20-5.60); RED CELL DISTRIBUTION WIDTH 20.2 % (11.5-14.5); WHITE BLOOD COUNT 17.5 X10'3 (4.5-11.0)
[2018-03-22 11:57] LABS: ALBUMIN 1.1 G/DL (3.4-5.0); ANION GAP 10 (8-16); BLOOD UREA NITROGEN 12 MG/DL (7-18); BUN/CREATININE RATIO 10.3 (6.6-38.0); CHLORIDE 97 MMOL/L (99-107); CREATININE 1.17 MG/DL (0.40-0.90); GLUCOSE 189 MG/DL (70-104); MAGNESIUM 2.3 MG/DL (1.5-2.4); PHOSPHORUS 1.5 MG/DL (2.3-4.5); POTASSIUM 4.1 MMOL/L (3.5-5.1); SODIUM 135 MMOL/L (135-145); TOTAL CARBON DIOXIDE 28.2 MMOL/L (24-32); eGFR 47 ML/MIN
[2018-03-22 13:23] LABS: TOTAL CELLS COUNTED 100
[2018-03-22 13:24] LABS: ANISOCYTOSIS 2+; HYPOCHROMASIA 1+; PLATELET ESTIMATE DECREASED; POLYCHROMASIA 1+; TOXIC GRANULATION 3+
[2018-03-22] MEDS: vasopressin inj. 60 UNIT in normal saline 100ml IV soln 97 ML IV SCH (15:00)
[2018-03-22] MEDS ORDERED: tPA-cathflo 2 MG/2 ml IV flush IVF ONE (15:25)
[2018-03-22 15:27] LABS: BASOPHILS % (AUTO) 0 % (0-1); EOSINOPHILS # (AUTO) 0.4 X10'3 (0-0.9); EOSINOPHILS % (AUTO) 2.8 % (0-6); LYMPHOCYTES # (AUTO) 0.3 X10'3 (1.1-4.8); LYMPHOCYTES % (AUTO) 2.2 % (21-51); MEAN CORPUSCULAR HEMOGLOBIN 29.7 PG (27.0-31.0); MEAN CORPUSCULAR HGB CONC 32.8 % (33.0-36.5); MEAN CORPUSCULAR VOLUME 90.5 FL (78-98); MEAN PLATELET VOLUME 8.1 FL (7.4-10.4); MONOCYTES # (AUTO) 0.4 X10'3 (0-0.9); MONOCYTES % (AUTO) 2.5 % (2-12); NEUTROPHILS # (AUTO) 13.2 X10'3 (1.8-7.7); NEUTROPHILS % (AUTO) 92.5 % (42-75); PLATELET COUNT 103 X10'3 (140-440); RED BLOOD COUNT 2.36 X10'6 (4.20-5.60); RED CELL DISTRIBUTION WIDTH 20.1 % (11.5-14.5); WHITE BLOOD COUNT 14.3 X10'3 (4.5-11.0)
[2018-03-22 15:34] LABS: ALANINE AMINOTRANSFERASE 15 U/L (12-78); ALBUMIN/GLOBULIN RATIO 0.3 (1.1-1.5); ALKALINE PHOSPHATASE 84 IU/L (46-116); ANION GAP 3 (8-16); ASPARTATE AMINO TRANSFERASE 31 U/L (10-37); BILIRUBIN,TOTAL 0.1 MG/DL (0.1-1.0); BLOOD UREA NITROGEN 14 MG/DL (7-18); BUN/CREATININE RATIO 14.4 (6.6-38.0); CALCIUM 8.4 MG/DL (8.5-10.1); CHLORIDE 105 MMOL/L (99-107); CREATININE 0.97 MG/DL (0.40-0.90); GLUCOSE 115 MG/DL (70-104); MAGNESIUM 2.2 MG/DL (1.5-2.4); POTASSIUM 3.7 MMOL/L (3.5-5.1); SODIUM 139 MMOL/L (135-145); TOTAL PROTEIN 4.4 G/DL (6.4-8.2); eGFR 58 ML/MIN
[2018-03-22 15:47] LABS: HEMATOCRIT 21.4 % (35.0-45.0)
[2018-03-22 18:11] LABS: PHOSPHORUS 1.8 MG/DL (2.3-4.5)
[2018-03-22 20:05] LABS: BASOPHILS % (AUTO) 0 % (0-1); EOSINOPHILS # (AUTO) 0.7 X10'3 (0-0.9); EOSINOPHILS % (AUTO) 2.5 % (0-6); LYMPHOCYTES # (AUTO) 0.3 X10'3 (1.1-4.8); LYMPHOCYTES % (AUTO) 1.1 % (21-51); MEAN CORPUSCULAR HEMOGLOBIN 29.9 PG (27.0-31.0); MEAN CORPUSCULAR HGB CONC 33.2 % (33.0-36.5); MEAN CORPUSCULAR VOLUME 90.2 FL (78-98); MEAN PLATELET VOLUME 8.3 FL (7.4-10.4); MONOCYTES # (AUTO) 0.4 X10'3 (0-0.9); MONOCYTES % (AUTO) 1.7 % (2-12); NEUTROPHILS # (AUTO) 25.7 X10'3 (1.8-7.7); NEUTROPHILS % (AUTO) 94.7 % (42-75); PLATELET COUNT 84 X10'3 (140-440); RED BLOOD COUNT 2.66 X10'6 (4.20-5.60); RED CELL DISTRIBUTION WIDTH 20.3 % (11.5-14.5)
[2018-03-22 20:13] LABS: WHITE BLOOD COUNT 27.1 X10'3 (4.5-11.0)
[2018-03-22 20:18] LABS: ALBUMIN 1.2 G/DL (3.4-5.0); ANION GAP 5 (8-16); BLOOD UREA NITROGEN 16 MG/DL (7-18); BUN/CREATININE RATIO 14.3 (6.6-38.0); CHLORIDE 104 MMOL/L (99-107); CREATININE 1.12 MG/DL (0.40-0.90); GLUCOSE 132 MG/DL (70-104); MAGNESIUM 2.3 MG/DL (1.5-2.4); POTASSIUM 4.2 MMOL/L (3.5-5.1); SODIUM 139 MMOL/L (135-145); TOTAL CARBON DIOXIDE 29.9 MMOL/L (24-32); eGFR 49 ML/MIN
[2018-03-22 20:33] LABS: ANISOCYTOSIS 2+; HYPOCHROMASIA 1+; PLATELET ESTIMATE DECREASED; POLYCHROMASIA FEW; TOTAL CELLS COUNTED 100
[2018-03-22] MEDS: NORepinephrine 8mg/ 250ml NS 250 ML IV SCH (21:04)
[2018-03-22] MEDS: insulin glargine (Lantus) pen - multi-dose SQ SCH (21:21)
[2018-03-22] MEDS: bicarb dialysis sol NO calcium 5,000 ML HE SCH (21:50)
[2018-03-22] MEDS: sodium phosphate inj. 15 MMOL in dextrose 5%-water 150 ML IV PRN (22:32)
[2018-03-23] VITALS (24 sets, daily range): BP systolic 74–129; BP diastolic 50–79
[2018-03-23] MEDS: citrate dextrose 1000ml IV sol 1,000 ML IV PRN ×2 (01:22→07:46)
[2018-03-23] MEDS: bicarb dialysis sol NO calcium 5,000 ML HE SCH ×3 (02:01→08:18)
[2018-03-23] MEDS: FENTANYL-0.9 % NACL/PF 100 ML IV PRN ×2 (02:30→20:53)
[2018-03-23] MEDS: insulin regular, human vial - multi-dose SQ SCH ×4 (02:30→20:19)
[2018-03-23 02:38] LABS: BASOPHILS % (AUTO) 0 % (0-1); EOSINOPHILS # (AUTO) 0.6 X10'3 (0-0.9); EOSINOPHILS % (AUTO) 2.6 % (0-6); HEMOGLOBIN 7.1 g/dl (12.0-16.0); LYMPHOCYTES # (AUTO) 0.4 X10'3 (1.1-4.8); LYMPHOCYTES % (AUTO) 1.9 % (21-51); MEAN CORPUSCULAR HEMOGLOBIN 29.6 PG (27.0-31.0); MEAN CORPUSCULAR HGB CONC 32.4 % (33.0-36.5); MEAN CORPUSCULAR VOLUME 91.5 FL (78-98); MEAN PLATELET VOLUME 8.4 FL (7.4-10.4); MONOCYTES # (AUTO) 0.5 X10'3 (0-0.9); MONOCYTES % (AUTO) 2.2 % (2-12); NEUTROPHILS # (AUTO) 19.7 X10'3 (1.8-7.7); NEUTROPHILS % (AUTO) 93.3 % (42-75); PLATELET COUNT 88 X10'3 (140-440); RED BLOOD COUNT 2.39 X10'6 (4.20-5.60); RED CELL DISTRIBUTION WIDTH 19.9 % (11.5-14.5); WHITE BLOOD COUNT 21.1 X10'3 (4.5-11.0)
[2018-03-23 02:46] LABS: HEMATOCRIT 21.9 % (35.0-45.0)
[2018-03-23 02:51] LABS: INR 1.1 INR; PARTIAL THROMBOPLASTIN TIME 32 SECONDS (22-32)
[2018-03-23 02:56] LABS: ALANINE AMINOTRANSFERASE 16 U/L (12-78); ALBUMIN 1.1 G/DL (3.4-5.0); ALBUMIN/GLOBULIN RATIO 0.3 (1.1-1.5); ALKALINE PHOSPHATASE 111 IU/L (46-116); ANION GAP 4 (8-16); ASPARTATE AMINO TRANSFERASE 35 U/L (10-37); BILIRUBIN,TOTAL 0.2 MG/DL (0.1-1.0); BLOOD UREA NITROGEN 14 MG/DL (7-18); BUN/CREATININE RATIO 13.7 (6.6-38.0); CALCIUM 9.2 MG/DL (8.5-10.1); CHLORIDE 102 MMOL/L (99-107); CREATININE 1.02 MG/DL (0.40-0.90); GLUCOSE 182 MG/DL (70-104); PHOSPHORUS 2.2 MG/DL (2.3-4.5); POTASSIUM 4.2 MMOL/L (3.5-5.1); SODIUM 135 MMOL/L (135-145); TOTAL CARBON DIOXIDE 29.2 MMOL/L (24-32); TOTAL PROTEIN 4.8 G/DL (6.4-8.2); VANCOMYCIN,RANDOM 9.5 UG/ML; eGFR 55 ML/MIN
[2018-03-23] MEDS: VANCOMYCIN LEVEL IV SCH (03:00)
[2018-03-23 03:51] LABS: ABG BASE EXCESS 1.2 mmol/L (-2.0-3.0); ABG HCO3 26.6 mmol/L (22.0-26.0); ABG OXYGEN SATURATION 95.7 % (95-98); ABG PCO2 (T) 45.3 mmHg (32.0-45.0); ABG PH (T) 7.384 (7.350-7.450); ABG PO2 (T) 81.2 mmHg (83-108); ALLEN'S TEST Positive; FLOW 1 L/min; FMetHb 0.2 % (0.3-1.12); FO2Hb 95.5 % (94-100); PATIENT TEMPERATURE 36.4; PEEP 5 cm H2O; RESPIRATORY RATE 20 b/min; TIDAL VOLUME 450 mL
[2018-03-23 04:17] LABS: ANISOCYTOSIS 2+; HYPOCHROMASIA 1+; PLATELET ESTIMATE DECREASED; POLYCHROMASIA FEW; TOTAL CELLS COUNTED 100; TOXIC GRANULATION 1+
[2018-03-23] MEDS: calcium chloride inj. 10,000 MG in normal saline 500ml IV soln 400 ML IV PRN (07:48)
[2018-03-23] MEDS: piperacillin/tazobactam inj. 2.25 GM in normal saline 50ml IV IV SCH ×2 (07:52→16:43)
[2018-03-23] MEDS: famotidine/PF 10 mg/ml inj IV SCH ×2 (07:52→19:55)
[2018-03-23] MEDS: lactobacillus rhamnosus 10,000 MMU CELLS/CAPSULE PO SCH ×2 (07:52→19:55)
[2018-03-23] MEDS: K, MAG and/or Phos replacement - Verify level? MC SCH (08:00)
[2018-03-23] MEDS: midazolam 100mg in NS 100ml 100 ML IV PRN (10:14)
[2018-03-23 13:04] LABS: BASOPHILS % (AUTO) 0 % (0-1); EOSINOPHILS # (AUTO) 0.4 X10'3 (0-0.9); EOSINOPHILS % (AUTO) 1.2 % (0-6); HEMOGLOBIN 7.2 g/dl (12.0-16.0); LYMPHOCYTES # (AUTO) 0.4 X10'3 (1.1-4.8); LYMPHOCYTES % (AUTO) 1.4 % (21-51); MEAN CORPUSCULAR HEMOGLOBIN 30.3 PG (27.0-31.0); MEAN CORPUSCULAR HGB CONC 33.1 % (33.0-36.5); MEAN CORPUSCULAR VOLUME 91.4 FL (78-98); MEAN PLATELET VOLUME 8.6 FL (7.4-10.4); MONOCYTES # (AUTO) 0.5 X10'3 (0-0.9); MONOCYTES % (AUTO) 1.6 % (2-12); NEUTROPHILS % (AUTO) 95.8 % (42-75); PLATELET COUNT 53 X10'3 (140-440); RED BLOOD COUNT 2.36 X10'6 (4.20-5.60); RED CELL DISTRIBUTION WIDTH 19.4 % (11.5-14.5)
[2018-03-23 13:17] LABS: ALBUMIN 1.1 G/DL (3.4-5.0); ANION GAP 2 (8-16); BLOOD UREA NITROGEN 15 MG/DL (7-18); BUN/CREATININE RATIO 14.7 (6.6-38.0); CHLORIDE 101 MMOL/L (99-107); CREATININE 1.02 MG/DL (0.40-0.90); GLUCOSE 204 MG/DL (70-104); MAGNESIUM 1.8 MG/DL (1.5-2.4); PHOSPHORUS 2.6 MG/DL (2.3-4.5); POTASSIUM 4.2 MMOL/L (3.5-5.1); SODIUM 135 MMOL/L (135-145); TOTAL CARBON DIOXIDE 31.7 MMOL/L (24-32); eGFR 55 ML/MIN
[2018-03-23 13:23] LABS: HEMATOCRIT 21.6 % (35.0-45.0); WHITE BLOOD COUNT 30.3 X10'3 (4.5-11.0)
[2018-03-23 14:21] LABS: ABG BASE EXCESS 0.7 mmol/L (-2.0-3.0); ABG HCO3 25.9 mmol/L (22.0-26.0); ABG OXYGEN SATURATION 93.8 % (95-98); ABG PCO2 (T) 42.7 mmHg (32.0-45.0); ABG PH (T) 7.397 (7.350-7.450); ABG PO2 (T) 68.4 mmHg (83-108); FCOHb 0.3 % (0.5-1.5); FMetHb 0.3 % (0.3-1.12); FO2Hb 93.2 % (94-100); PEEP 5 cm H2O; RESPIRATORY RATE 20 b/min; RESPIRATORY RATE (OBSERVED) 20 b/min; TIDAL VOLUME 450 mL
[2018-03-23] MEDS ORDERED: heparin 1,000 units/ml 10ml inj HE ONE ×2 (15:15)
[2018-03-23 19:43] LABS: CLARITY,URINE SLIGHTLY CLOUDY (Clear); GLUCOSE, URINE NEGATIVE (Neg); KETONES,URINE NEGATIVE (Neg); LEUKOCYTE ESTERASE ,URINE SMALL (Neg); NITRITES, URINE NEGATIVE (Neg); OCCULT BLOOD,URINE LARGE (Neg); PH,URINE 7.5 (4.8-8.0); PROTEIN,URINE >=300 mg/dl (Neg); UROBILINOGEN,URINE 0.2 E.U/dL (0.2-1.0)
[2018-03-23 19:45] LABS: COLOR,URINE PINK (Yellow)
[2018-03-23 19:47] LABS: UA COLLECTION TYPE FOLEY CATH
[2018-03-23 19:50] LABS: RBC,URINE TNTC /HPF (0-2); SQUAMOUS EPITHELIAL CELL,UR FEW /LPF (FEW)
[2018-03-23 19:51] LABS: BACTERIA,URINE 1+ /HPF (Neg); WBC,URINE 30-50 /HPF (0-4)
[2018-03-23 19:52] LABS: WBC CLUMPS,URINE FEW /HPF (NEGATIVE)
[2018-03-23] MEDS: NORepinephrine 8mg/ 250ml NS 250 ML IV SCH (20:52)
[2018-03-23] MEDS: insulin glargine (Lantus) pen - multi-dose SQ SCH (21:14)
[2018-03-23] MEDS ORDERED: vancomycin/NS 1 GM ADD-VANTAGE 250 ML IV ONE (22:15)
[2018-03-23] MEDS: [UNRECOGNIZED DRUG - REMARK] IV SCH ×4 (22:22)
[2018-03-24] VITALS (30 sets, daily range): BP systolic 83–150; BP diastolic 47–73
[2018-03-24] MEDS: piperacillin/tazobactam inj. 2.25 GM in normal saline 50ml IV IV SCH ×3 (00:09→16:00)
[2018-03-24] MEDS: insulin regular, human vial - multi-dose SQ SCH ×4 (02:37→20:41)
[2018-03-24 02:54] LABS: ALANINE AMINOTRANSFERASE 15 U/L (12-78); ALBUMIN/GLOBULIN RATIO 0.3 (1.1-1.5); ALKALINE PHOSPHATASE 122 IU/L (46-116); ANION GAP 1 (8-16); ASPARTATE AMINO TRANSFERASE 24 U/L (10-37); BILIRUBIN,TOTAL 0.2 MG/DL (0.1-1.0); BLOOD UREA NITROGEN 25 MG/DL (7-18); BUN/CREATININE RATIO 15.5 (6.6-38.0); CALCIUM 9.1 MG/DL (8.5-10.1); CHLORIDE 103 MMOL/L (99-107); CREATININE 1.61 MG/DL (0.40-0.90); PHOSPHORUS 2.5 MG/DL (2.3-4.5); POTASSIUM 4.7 MMOL/L (3.5-5.1); PREALBUMIN 11.5 MG/DL (19-36); SODIUM 136 MMOL/L (135-145); TOTAL CARBON DIOXIDE 31.9 MMOL/L (24-32); TOTAL PROTEIN 4.5 G/DL (6.4-8.2); TRIGLYCERIDES 120 MG/DL (20-135); eGFR 32 ML/MIN
[2018-03-24 02:57] LABS: GLUCOSE 45 MG/DL (70-104)
[2018-03-24 03:02] LABS: BASOPHILS % (AUTO) 0 % (0-1); EOSINOPHILS # (AUTO) 0.5 X10'3 (0-0.9); EOSINOPHILS % (AUTO) 2.8 % (0-6); LYMPHOCYTES # (AUTO) 0.6 X10'3 (1.1-4.8); LYMPHOCYTES % (AUTO) 3.4 % (21-51); MEAN CORPUSCULAR VOLUME 90.7 FL (78-98); MEAN PLATELET VOLUME 7.9 FL (7.4-10.4); MONOCYTES # (AUTO) 0.5 X10'3 (0-0.9); MONOCYTES % (AUTO) 2.9 % (2-12); NEUTROPHILS % (AUTO) 90.9 % (42-75); PLATELET COUNT 82 X10'3 (140-440); RED BLOOD COUNT 2.01 X10'6 (4.20-5.60); RED CELL DISTRIBUTION WIDTH 18.6 % (11.5-14.5); WHITE BLOOD COUNT 17.6 X10'3 (4.5-11.0)
[2018-03-24 03:17] LABS: HEMATOCRIT 18.2 % (35.0-45.0)
[2018-03-24 03:27] LABS: INR 1.1 INR; PARTIAL THROMBOPLASTIN TIME 32 SECONDS (22-32); PROTHROMBIN TIME 11.3 SECONDS (9.0-12.0)
[2018-03-24 04:26] LABS: ABG BASE EXCESS 3.8 mmol/L (-2.0-3.0); ABG HCO3 28.1 mmol/L (22.0-26.0); ABG OXYGEN SATURATION 95.4 % (95-98); ABG PCO2 (T) 40.8 mmHg (32.0-45.0); ABG PH (T) 7.455 (7.350-7.450); ABG PO2 (T) 73.6 mmHg (83-108); ALLEN'S TEST Positive; FCOHb 0.7 % (0.5-1.5); FMetHb 0.1 % (0.3-1.12); FO2Hb 94.6 % (94-100); PATIENT TEMPERATURE 36.8; PEEP 5 cm H2O; RESPIRATORY RATE 20 b/min; TIDAL VOLUME 450 mL; TOTAL HEMOGLOBIN 6.5 G/dl (12.0-16.0)
[2018-03-24 05:25] LABS: TOTAL CELLS COUNTED 100
[2018-03-24 05:29] LABS: ANISOCYTOSIS 2+; PLATELET ESTIMATE DECREASED; POLYCHROMASIA 1+
[2018-03-24 05:30] LABS: TOXIC GRANULATION 3+
[2018-03-24] MEDS: ipratropium/albuterol 3ml nebule NEB PRN (07:25)
[2018-03-24] MEDS: famotidine/PF 10 mg/ml inj IV SCH ×2 (07:35→20:23)
[2018-03-24] MEDS: K, MAG and/or Phos replacement - Verify level? MC SCH (08:00)
[2018-03-24] MEDS: lactobacillus rhamnosus 10,000 MMU CELLS/CAPSULE PO SCH (08:00)
[2018-03-24] MEDS: dexmedetomidin/NS 400mcg/100ml 100 ML IV SCH (12:00)
[2018-03-24] MEDS: albuterol 2.5 MG/3 ML nebule NEB PRN (19:29)
[2018-03-24] MEDS: vasopressin inj. 60 UNIT in normal saline 100ml IV soln 97 ML IV SCH (20:23)
[2018-03-24] MEDS: insulin glargine (Lantus) pen - multi-dose SQ SCH (20:40)
[2018-03-24 22:07] LABS: OCCULT BLOOD STOOL POSITIVE (Neg)
[2018-03-24] MEDS: [UNRECOGNIZED DRUG - REMARK] IV SCH ×4 (22:07)
[2018-03-25] VITALS (24 sets, daily range): BP systolic 90–148; BP diastolic 55–87
[2018-03-25] MEDS: piperacillin/tazobactam inj. 2.25 GM in normal saline 50ml IV IV SCH ×4 (00:04→23:55)
[2018-03-25] MEDS: insulin regular, human vial - multi-dose SQ SCH ×3 (02:05→14:25)
[2018-03-25 02:19] LABS: INR 1.1 INR; PARTIAL THROMBOPLASTIN TIME 31 SECONDS (22-32); PROTHROMBIN TIME 10.9 SECONDS (9.0-12.0)
[2018-03-25 02:22] LABS: BASOPHILS % (AUTO) 0.1 % (0-1); EOSINOPHILS # (AUTO) 0.4 X10'3 (0-0.9); EOSINOPHILS % (AUTO) 2.8 % (0-6); HEMATOCRIT 26.2 % (35.0-45.0); HEMOGLOBIN 8.9 g/dl (12.0-16.0); LYMPHOCYTES # (AUTO) 0.6 X10'3 (1.1-4.8); MEAN CORPUSCULAR HEMOGLOBIN 30.4 PG (27.0-31.0); MEAN CORPUSCULAR HGB CONC 34.1 % (33.0-36.5); MEAN CORPUSCULAR VOLUME 89.1 FL (78-98); MEAN PLATELET VOLUME 8.3 FL (7.4-10.4); MONOCYTES # (AUTO) 0.4 X10'3 (0-0.9); MONOCYTES % (AUTO) 2.4 % (2-12); NEUTROPHILS # (AUTO) 14.3 X10'3 (1.8-7.7); NEUTROPHILS % (AUTO) 90.7 % (42-75); PLATELET COUNT 108 X10'3 (140-440); RED BLOOD COUNT 2.94 X10'6 (4.20-5.60); RED CELL DISTRIBUTION WIDTH 16.6 % (11.5-14.5); WHITE BLOOD COUNT 15.8 X10'3 (4.5-11.0)
[2018-03-25 02:25] LABS: ALANINE AMINOTRANSFERASE 13 U/L (12-78); ALBUMIN 1.1 G/DL (3.4-5.0); ALBUMIN/GLOBULIN RATIO 0.3 (1.1-1.5); ALKALINE PHOSPHATASE 152 IU/L (46-116); ANION GAP 3 (8-16); ASPARTATE AMINO TRANSFERASE 31 U/L (10-37); BILIRUBIN,TOTAL 0.3 MG/DL (0.1-1.0); BLOOD UREA NITROGEN 42 MG/DL (7-18); BUN/CREATININE RATIO 17.5 (6.6-38.0); CALCIUM 8.9 MG/DL (8.5-10.1); CHLORIDE 99 MMOL/L (99-107); GLUCOSE 113 MG/DL (70-104); MAGNESIUM 2.1 MG/DL (1.5-2.4); PHOSPHORUS 3.9 MG/DL (2.3-4.5); POTASSIUM 5.8 MMOL/L (3.5-5.1); SODIUM 131 MMOL/L (135-145); TOTAL CARBON DIOXIDE 28.7 MMOL/L (24-32); eGFR 20 ML/MIN
[2018-03-25 02:37] LABS: PLATELET ESTIMATE DECREASED; TOTAL CELLS COUNTED 100
[2018-03-25 02:38] LABS: ANISOCYTOSIS 2+; POLYCHROMASIA 1+; TOXIC GRANULATION 2+
[2018-03-25 03:56] LABS: ABG BASE EXCESS 0.1 mmol/L (-2.0-3.0); ABG HCO3 24.3 mmol/L (22.0-26.0); ABG OXYGEN SATURATION 95.1 % (95-98); ABG PCO2 (T) 37.8 mmHg (32.0-45.0); ABG PH (T) 7.427 (7.350-7.450); ABG PO2 (T) 80.8 mmHg (83-108); ALLEN'S TEST Positive; FCOHb 0.3 % (0.5-1.5); FMetHb 0.3 % (0.3-1.12); FO2Hb 94.5 % (94-100); PATIENT TEMPERATURE 37.2; PEEP 5 cm H2O; RESPIRATORY RATE 20 b/min; TIDAL VOLUME 450 mL; TOTAL HEMOGLOBIN 9.5 G/dl (12.0-16.0)
[2018-03-25] MEDS: dexmedetomidin/NS 400mcg/100ml 100 ML IV SCH (06:00)
[2018-03-25] MEDS: famotidine/PF 10 mg/ml inj IV SCH ×2 (07:51→20:03)
[2018-03-25] MEDS ORDERED: heparin 1,000 units/ml 10ml inj HE ONE ×2 (08:00)
[2018-03-25] MEDS ORDERED: heparin 1,000unit/ml 10ml vial 10 ML IV ONE (08:00)
[2018-03-25] MEDS ORDERED: albumin (human) 25% 100ml IV 100 ML IV PRN (08:00)
[2018-03-25] MEDS: K, MAG and/or Phos replacement - Verify level? MC SCH (08:00)
[2018-03-25] MEDS ORDERED: LIDOcaine 1% (10mg/ml) 2ml vial SQ ONE (08:00)
[2018-03-25] MEDS ORDERED: epoetin 20,000 units/ml inj IV ONE (08:00)
[2018-03-25] MEDS: NORepinephrine 8mg/ 250ml NS 250 ML IV SCH (11:54)
[2018-03-25] MEDS: FENTANYL-0.9 % NACL/PF 100 ML IV PRN (16:12)
[2018-03-25] MEDS: [UNRECOGNIZED DRUG - REMARK] IV SCH ×4 (20:15)
[2018-03-25] MEDS: insulin glargine (Lantus) pen - multi-dose SQ SCH (21:00)
[2018-03-25] MEDS: ipratropium/albuterol 3ml nebule NEB PRN (23:22)
[2018-03-26] VITALS (25 sets, daily range): BP systolic 73–154; BP diastolic 43–85
[2018-03-26] MEDS: dexmedetomidin/NS 400mcg/100ml 100 ML IV SCH ×2 (00:51→14:24)
[2018-03-26 02:50] LABS: BASOPHILS % (AUTO) 0.3 % (0-1); EOSINOPHILS # (AUTO) 0.3 X10'3 (0-0.9); EOSINOPHILS % (AUTO) 2.5 % (0-6); HEMATOCRIT 23.7 % (35.0-45.0); HEMOGLOBIN 7.9 g/dl (12.0-16.0); LYMPHOCYTES # (AUTO) 0.4 X10'3 (1.1-4.8); LYMPHOCYTES % (AUTO) 3.6 % (21-51); MEAN CORPUSCULAR HGB CONC 33.4 % (33.0-36.5); MEAN CORPUSCULAR VOLUME 89.8 FL (78-98); MEAN PLATELET VOLUME 8.6 FL (7.4-10.4); MONOCYTES # (AUTO) 0.7 X10'3 (0-0.9); NEUTROPHILS % (AUTO) 87.6 % (42-75); PLATELET COUNT 144 X10'3 (140-440); RED BLOOD COUNT 2.64 X10'6 (4.20-5.60); RED CELL DISTRIBUTION WIDTH 17.3 % (11.5-14.5); WHITE BLOOD COUNT 12.5 X10'3 (4.5-11.0)
[2018-03-26 03:06] LABS: ABG HCO3 22.5 mmol/L (22.0-26.0); ABG OXYGEN SATURATION 95.3 % (95-98); ABG PCO2 (T) 31.5 mmHg (32.0-45.0); ABG PH (T) 7.469 (7.350-7.450); ABG PO2 (T) 71.6 mmHg (83-108); ALLEN'S TEST Positive; FCOHb 0.1 % (0.5-1.5); FMetHb 0.2 % (0.3-1.12); MINUTE VOLUME 9 L/min; PATIENT TEMPERATURE 36.2; PEEP 5 cm H2O; RESPIRATORY RATE 20 b/min; RESPIRATORY RATE (OBSERVED) 20 b/min; TIDAL VOLUME 400 mL; TOTAL HEMOGLOBIN 8.5 G/dl (12.0-16.0)
[2018-03-26 03:08] LABS: ALANINE AMINOTRANSFERASE 15 U/L (12-78); ALBUMIN 0.9 G/DL (3.4-5.0); ALBUMIN/GLOBULIN RATIO 0.2 (1.1-1.5); ALKALINE PHOSPHATASE 171 IU/L (46-116); ANION GAP 6 (8-16); ASPARTATE AMINO TRANSFERASE 35 U/L (10-37); BILIRUBIN,TOTAL 0.2 MG/DL (0.1-1.0); BLOOD UREA NITROGEN 42 MG/DL (7-18); BUN/CREATININE RATIO 18.1 (6.6-38.0); CALCIUM 8.3 MG/DL (8.5-10.1); CHLORIDE 98 MMOL/L (99-107); CREATININE 2.32 MG/DL (0.40-0.90); GLUCOSE 120 MG/DL (70-104); MAGNESIUM 2.1 MG/DL (1.5-2.4); PHOSPHORUS 3.9 MG/DL (2.3-4.5); POTASSIUM 5.6 MMOL/L (3.5-5.1); SODIUM 132 MMOL/L (135-145); TOTAL CARBON DIOXIDE 28.5 MMOL/L (24-32); TOTAL PROTEIN 4.9 G/DL (6.4-8.2); eGFR 21 ML/MIN
[2018-03-26 03:32] LABS: INR 1.1 INR; PARTIAL THROMBOPLASTIN TIME 33 SECONDS (22-32)
[2018-03-26] MEDS: ipratropium/albuterol 3ml nebule NEB PRN ×4 (03:39→15:25)
[2018-03-26] MEDS: FENTANYL-0.9 % NACL/PF 100 ML IV PRN ×2 (04:48→19:06)
[2018-03-26] MEDS: famotidine/PF 10 mg/ml inj IV SCH ×2 (07:02→20:18)
[2018-03-26] MEDS: piperacillin/tazobactam inj. 2.25 GM in normal saline 50ml IV IV SCH ×3 (07:02→23:49)
[2018-03-26] MEDS: K, MAG and/or Phos replacement - Verify level? MC SCH (07:38)
[2018-03-26] MEDS: insulin regular, human vial - multi-dose SQ SCH ×3 (08:46→20:16)
[2018-03-26] MEDS ORDERED: MIDAZolam 5mg/ml 2ml vial ONE (12:12)
[2018-03-26] MEDS ORDERED: heparin 1,000unit/ml 10ml vial 10 ML IV ONE ×2 (12:58→16:50)
[2018-03-26] MEDS ORDERED: epoetin 20,000 units/ml inj IV ONE (13:00)
[2018-03-26] MEDS ORDERED: albumin (human) 25% 100ml IV 100 ML IV PRN (13:00)
[2018-03-26] MEDS ORDERED: heparin 1,000 units/ml 10ml inj HE ONE ×4 (13:05→16:55)
[2018-03-26] MEDS ORDERED: tPA-cathflo 2 MG/2 ml IV flush IVF ONE ×2 (16:20→21:20)
[2018-03-26] MEDS: insulin glargine (Lantus) pen - multi-dose SQ SCH (20:17)
[2018-03-26] MEDS ORDERED: [UNRECOGNIZED DRUG - REMARK] IV SCH ×4 (21:00)
[2018-03-26] MEDS: albuterol 2.5 MG/3 ML nebule NEB PRN (23:23)
[2018-03-27] VITALS (24 sets, daily range): BP systolic 83–161; BP diastolic 49–89
[2018-03-27] MEDS: NORepinephrine 8mg/ 250ml NS 250 ML IV SCH (01:29)
[2018-03-27 03:00] LABS: BASOPHILS % (AUTO) 0.1 % (0-1); EOSINOPHILS # (AUTO) 0.4 X10'3 (0-0.9); EOSINOPHILS % (AUTO) 3.6 % (0-6); HEMOGLOBIN 7.7 g/dl (12.0-16.0); LYMPHOCYTES # (AUTO) 0.4 X10'3 (1.1-4.8); LYMPHOCYTES % (AUTO) 3.8 % (21-51); MEAN CORPUSCULAR HGB CONC 33.5 % (33.0-36.5); MEAN CORPUSCULAR VOLUME 89.4 FL (78-98); MEAN PLATELET VOLUME 7.9 FL (7.4-10.4); MONOCYTES # (AUTO) 0.7 X10'3 (0-0.9); MONOCYTES % (AUTO) 6.5 % (2-12); NEUTROPHILS # (AUTO) 9.4 X10'3 (1.8-7.7); PLATELET COUNT 173 X10'3 (140-440); RED BLOOD COUNT 2.57 X10'6 (4.20-5.60); RED CELL DISTRIBUTION WIDTH 17.1 % (11.5-14.5); WHITE BLOOD COUNT 10.9 X10'3 (4.5-11.0)
[2018-03-27] MEDS: insulin regular, human vial - multi-dose SQ SCH (03:01)
[2018-03-27 03:08] LABS: INR 1.1 INR; PARTIAL THROMBOPLASTIN TIME 33 SECONDS (22-32); PROTHROMBIN TIME 11.5 SECONDS (9.0-12.0)
[2018-03-27 03:18] LABS: ALANINE AMINOTRANSFERASE 13 U/L (12-78); ALBUMIN 0.9 G/DL (3.4-5.0); ALBUMIN/GLOBULIN RATIO 0.2 (1.1-1.5); ALKALINE PHOSPHATASE 159 IU/L (46-116); ANION GAP 5 (8-16); ASPARTATE AMINO TRANSFERASE 34 U/L (10-37); BILIRUBIN,TOTAL 0.2 MG/DL (0.1-1.0); BLOOD UREA NITROGEN 45 MG/DL (7-18); BUN/CREATININE RATIO 17.6 (6.6-38.0); CHLORIDE 99 MMOL/L (99-107); CREATININE 2.55 MG/DL (0.40-0.90); GLUCOSE 97 MG/DL (70-104); PHOSPHORUS 4.9 MG/DL (2.3-4.5); POTASSIUM 5.5 MMOL/L (3.5-5.1); PREALBUMIN 10.8 MG/DL (19-36); SODIUM 132 MMOL/L (135-145); TOTAL CARBON DIOXIDE 28.2 MMOL/L (24-32); TOTAL PROTEIN 5.1 G/DL (6.4-8.2); TRIGLYCERIDES 122 MG/DL (20-135); eGFR 19 ML/MIN
[2018-03-27] MEDS: albuterol 2.5 MG/3 ML nebule NEB PRN (03:20)
[2018-03-27 04:05] LABS: ABG BASE EXCESS -0.7 mmol/L (-2.0-3.0); ABG HCO3 23.9 mmol/L (22.0-26.0); ABG OXYGEN SATURATION 95.8 % (95-98); ABG PCO2 (T) 37.2 mmHg (32.0-45.0); ABG PH (T) 7.421 (7.350-7.450); ABG PO2 (T) 75.8 mmHg (83-108); ALLEN'S TEST Positive; FCOHb 0.3 % (0.5-1.5); FMetHb 0.2 % (0.3-1.12); FO2Hb 95.3 % (94-100); MINUTE VOLUME 9 L/min; PATIENT TEMPERATURE 35.8; PEEP 5 cm H2O; RESPIRATORY RATE 18 b/min; RESPIRATORY RATE (OBSERVED) 18 b/min; TIDAL VOLUME 450 mL; TOTAL HEMOGLOBIN 8.6 G/dl (12.0-16.0)
[2018-03-27] MEDS: FENTANYL-0.9 % NACL/PF 100 ML IV PRN ×3 (05:15→22:35)
[2018-03-27] MEDS: K, MAG and/or Phos replacement - Verify level? MC SCH (06:43)
[2018-03-27] MEDS: famotidine/PF 10 mg/ml inj IV SCH ×2 (07:09→20:49)
[2018-03-27] MEDS: piperacillin/tazobactam inj. 2.25 GM in normal saline 50ml IV IV SCH ×2 (07:09→15:23)
[2018-03-27] MEDS ORDERED: heparin 1,000unit/ml 10ml vial 10 ML IV ONE ×3 (07:34→08:14)
[2018-03-27] MEDS ORDERED: heparin 1,000 units/ml 10ml inj IV ONE ×2 (07:35→08:13)
[2018-03-27] MEDS ORDERED: albumin (human) 25% 100ml IV 100 ML IV PRN ×2 (07:35→08:14)
[2018-03-27] MEDS ORDERED: epoetin 20,000 units/ml inj IV ONE ×2 (07:35→08:14)
[2018-03-27] MEDS ORDERED: heparin 1,000 units/ml 10ml inj HE ONE ×4 (07:40→08:00)
[2018-03-27] MEDS: ipratropium/albuterol 3ml nebule NEB PRN ×2 (07:45→11:29)
[2018-03-27] MEDS: dexmedetomidin/NS 400mcg/100ml 100 ML IV SCH ×3 (10:49→20:20)
[2018-03-27] MEDS: mineral oil/petrolatum ophthal oint EACHEYE SCH ×2 (14:09→20:49)
[2018-03-27] MEDS: insulin glargine (Lantus) pen - multi-dose SQ SCH (21:00)
[2018-03-28] VITALS (24 sets, daily range): BP systolic 96–140; BP diastolic 52–81
[2018-03-28] MEDS: piperacillin/tazobactam inj. 2.25 GM in normal saline 50ml IV IV SCH ×3 (00:36→16:44)
[2018-03-28] MEDS: acetaminophen 325mg tablet PO PRN (00:37)
[2018-03-28] MEDS: dexmedetomidin/NS 400mcg/100ml 100 ML IV SCH ×5 (00:37→21:49)
[2018-03-28 03:41] LABS: ABG BASE EXCESS 0.7 mmol/L (-2.0-3.0); ABG HCO3 25.2 mmol/L (22.0-26.0); ABG OXYGEN SATURATION 97.4 % (95-98); ABG PH (T) 7.418 (7.350-7.450); ABG PO2 (T) 100.5 mmHg (83-108); ALLEN'S TEST Positive; FCOHb 0.3 % (0.5-1.5); FMetHb 0.1 % (0.3-1.12); MINUTE VOLUME 8 L/min; PATIENT TEMPERATURE 37.2; PEEP 5 cm H2O; RESPIRATORY RATE 18 b/min; RESPIRATORY RATE (OBSERVED) 18 b/min; TIDAL VOLUME 450 mL; TOTAL HEMOGLOBIN 8.5 G/dl (12.0-16.0)
[2018-03-28 04:08] LABS: BASOPHILS % (AUTO) 0.3 % (0-1); EOSINOPHILS # (AUTO) 0.3 X10'3 (0-0.9); EOSINOPHILS % (AUTO) 2.2 % (0-6); HEMATOCRIT 24.4 % (35.0-45.0); HEMOGLOBIN 8.1 g/dl (12.0-16.0); LYMPHOCYTES # (AUTO) 0.5 X10'3 (1.1-4.8); LYMPHOCYTES % (AUTO) 4.4 % (21-51); MEAN CORPUSCULAR HEMOGLOBIN 29.2 PG (27.0-31.0); MEAN CORPUSCULAR VOLUME 88.6 FL (78-98); MEAN PLATELET VOLUME 8.4 FL (7.4-10.4); MONOCYTES # (AUTO) 0.7 X10'3 (0-0.9); MONOCYTES % (AUTO) 6.2 % (2-12); NEUTROPHILS # (AUTO) 9.9 X10'3 (1.8-7.7); NEUTROPHILS % (AUTO) 86.9 % (42-75); PLATELET COUNT 281 X10'3 (140-440); RED BLOOD COUNT 2.76 X10'6 (4.20-5.60); RED CELL DISTRIBUTION WIDTH 16.8 % (11.5-14.5); WHITE BLOOD COUNT 11.4 X10'3 (4.5-11.0)
[2018-03-28 04:14] LABS: INR 1.1 INR; PARTIAL THROMBOPLASTIN TIME 32 SECONDS (22-32); PROTHROMBIN TIME 11.3 SECONDS (9.0-12.0)
[2018-03-28 04:22] LABS: ALANINE AMINOTRANSFERASE 19 U/L (12-78); ALBUMIN 0.9 G/DL (3.4-5.0); ALBUMIN/GLOBULIN RATIO 0.2 (1.1-1.5); ALKALINE PHOSPHATASE 243 IU/L (46-116); ANION GAP 8 (8-16); ASPARTATE AMINO TRANSFERASE 46 U/L (10-37); BILIRUBIN,TOTAL 0.2 MG/DL (0.1-1.0); BLOOD UREA NITROGEN 42 MG/DL (7-18); CHLORIDE 100 MMOL/L (99-107); CREATININE 2.62 MG/DL (0.40-0.90); GLUCOSE 134 MG/DL (70-104); PHOSPHORUS 3.9 MG/DL (2.3-4.5); POTASSIUM 5.2 MMOL/L (3.5-5.1); SODIUM 135 MMOL/L (135-145); TOTAL CARBON DIOXIDE 27.5 MMOL/L (24-32); TOTAL PROTEIN 5.6 G/DL (6.4-8.2); eGFR 18 ML/MIN
[2018-03-28] MEDS: mineral oil/petrolatum ophthal oint EACHEYE SCH ×4 (04:40→21:22)
[2018-03-28 07:54] LABS: HBSAG SCREEN Negative (Negative)
[2018-03-28] MEDS: K, MAG and/or Phos replacement - Verify level? MC SCH (08:00)
[2018-03-28] MEDS ORDERED: heparin 1,000 units/ml 10ml inj HE ONE ×4 (08:00→09:30)
[2018-03-28] MEDS: ipratropium/albuterol 3ml nebule NEB PRN (08:02)
[2018-03-28] MEDS: famotidine/PF 10 mg/ml inj IV SCH ×2 (08:13→21:22)
[2018-03-28] MEDS: FENTANYL-0.9 % NACL/PF 100 ML IV PRN (08:45)
[2018-03-28] MEDS ORDERED: heparin 1,000unit/ml 10ml vial 10 ML ONE (09:23)
[2018-03-28] MEDS ORDERED: LIDOcaine 0.5% (5mg/ml) 50ml vial ONE (09:24)
[2018-03-28] MEDS ORDERED: normal saline 1000ml 250 ML IV PRN (09:25)
[2018-03-28] MEDS ORDERED: heparin 1,000unit/ml 10ml vial 10 ML IV ONE (09:25)
[2018-03-28] MEDS ORDERED: albumin (human) 25% 100ml IV 100 ML IV PRN (09:25)
[2018-03-28] MEDS ORDERED: epoetin 20,000 units/ml inj IV ONE (09:25)
[2018-03-28] MEDS: LORazepam 2 mg/ml vial IV PRN (11:51)
[2018-03-28] MEDS: enoxaparin 60mg/0.6ml syringe SUBCUT SCH (12:33)
[2018-03-28] MEDS ORDERED: vancomycin/NS 1 GM ADD-VANTAGE 250 ML IV ONE (13:20)
[2018-03-28] MEDS: vancomycin inj 1,250 MG in normal saline 250ml IV soln 250 ML IV SCH (14:21)
[2018-03-28] MEDS: insulin glargine (Lantus) pen - multi-dose SQ SCH (21:00)
[2018-03-29] VITALS (24 sets, daily range): BP systolic 91–161; BP diastolic 52–92
[2018-03-29] MEDS: piperacillin/tazobactam inj. 2.25 GM in normal saline 50ml IV IV SCH ×3 (00:15→16:27)
[2018-03-29] MEDS: FENTANYL-0.9 % NACL/PF 100 ML IV PRN ×2 (00:15→08:38)
[2018-03-29] MEDS: dexmedetomidin/NS 400mcg/100ml 100 ML IV SCH ×5 (02:35→21:01)
[2018-03-29] MEDS: mineral oil/petrolatum ophthal oint EACHEYE SCH ×4 (02:35→20:00)
[2018-03-29 03:40] LABS: ABG BASE EXCESS 2.7 mmol/L (-2.0-3.0); ABG HCO3 26.8 mmol/L (22.0-26.0); ABG OXYGEN SATURATION 97.9 % (95-98); ABG PCO2 (T) 38.7 mmHg (32.0-45.0); ABG PH (T) 7.457 (7.350-7.450); ABG PO2 (T) 103.9 mmHg (83-108); ALLEN'S TEST Positive; FMetHb 0.1 % (0.3-1.12); FO2Hb 97.8 % (94-100); MINUTE VOLUME 8 L/min; PATIENT TEMPERATURE 36.4; PEEP 5 cm H2O; RESPIRATORY RATE 18 b/min; RESPIRATORY RATE (OBSERVED) 18 b/min; TIDAL VOLUME 450 mL; TOTAL HEMOGLOBIN 9.1 G/dl (12.0-16.0)
[2018-03-29 06:06] LABS: BASOPHILS # (AUTO) 0.1 X10'3 (0-0.2); EOSINOPHILS # (AUTO) 0.4 X10'3 (0-0.9); EOSINOPHILS % (AUTO) 4.1 % (0-6); HEMATOCRIT 22.8 % (35.0-45.0); HEMOGLOBIN 7.5 g/dl (12.0-16.0); LYMPHOCYTES # (AUTO) 0.6 X10'3 (1.1-4.8); MEAN CORPUSCULAR HGB CONC 32.7 % (33.0-36.5); MEAN CORPUSCULAR VOLUME 88.7 FL (78-98); MEAN PLATELET VOLUME 8.1 FL (7.4-10.4); MONOCYTES # (AUTO) 0.8 X10'3 (0-0.9); MONOCYTES % (AUTO) 7.6 % (2-12); NEUTROPHILS # (AUTO) 8.2 X10'3 (1.8-7.7); NEUTROPHILS % (AUTO) 81.3 % (42-75); PLATELET COUNT 339 X10'3 (140-440); RED BLOOD COUNT 2.57 X10'6 (4.20-5.60); WHITE BLOOD COUNT 10.1 X10'3 (4.5-11.0)
[2018-03-29 06:12] LABS: INR 1.1 INR; PARTIAL THROMBOPLASTIN TIME 30 SECONDS (22-32); PROTHROMBIN TIME 11.5 SECONDS (9.0-12.0)
[2018-03-29 06:35] LABS: ALANINE AMINOTRANSFERASE 18 U/L (12-78); ALBUMIN 1.3 G/DL (3.4-5.0); ALBUMIN/GLOBULIN RATIO 0.3 (1.1-1.5); ALKALINE PHOSPHATASE 185 IU/L (46-116); ANION GAP 9 (8-16); ASPARTATE AMINO TRANSFERASE 32 U/L (10-37); BILIRUBIN,TOTAL 0.2 MG/DL (0.1-1.0); BLOOD UREA NITROGEN 29 MG/DL (7-18); BUN/CREATININE RATIO 12.8 (6.6-38.0); CALCIUM 8.3 MG/DL (8.5-10.1); CHLORIDE 102 MMOL/L (99-107); CREATININE 2.26 MG/DL (0.40-0.90); GLUCOSE 125 MG/DL (70-104); MAGNESIUM 1.8 MG/DL (1.5-2.4); PHOSPHORUS 2.5 MG/DL (2.3-4.5); POTASSIUM 3.8 MMOL/L (3.5-5.1); SODIUM 138 MMOL/L (135-145); TOTAL CARBON DIOXIDE 27.1 MMOL/L (24-32); TOTAL PROTEIN 5.7 G/DL (6.4-8.2); eGFR 22 ML/MIN
[2018-03-29] MEDS ORDERED: heparin 1,000 units/ml 10ml inj HE ONE ×2 (08:00)
[2018-03-29] MEDS ORDERED: albumin (human) 25% 100ml IV 100 ML IV PRN (08:00)
[2018-03-29] MEDS ORDERED: epoetin 20,000 units/ml inj IV ONE (08:00)
[2018-03-29] MEDS ORDERED: enoxaparin 60mg/0.6ml syringe SUBCUT SCH (08:00)
[2018-03-29] MEDS ORDERED: normal saline 1000ml 100 ML IV PRN (08:00)
[2018-03-29] MEDS ORDERED: heparin 1,000 units/ml 10ml inj IV ONE (08:00)
[2018-03-29] MEDS: famotidine/PF 10 mg/ml inj IV SCH ×2 (08:37→20:52)
[2018-03-29] MEDS: enoxaparin 60mg/0.6ml syringe SUBCUT SCH (08:38)
[2018-03-29] MEDS: K, MAG and/or Phos replacement - Verify level? MC SCH (08:39)
[2018-03-29] MEDS: LORazepam 2 mg/ml vial IV PRN (11:41)
[2018-03-29] MEDS: amiodarone/D5 360MG/200ML BAG 200 ML IV SCH ×2 (14:43→19:41)
[2018-03-29] MEDS: vancomycin inj 1,250 MG in normal saline 250ml IV soln 250 ML IV SCH (14:44)
[2018-03-29] MEDS: insulin glargine (Lantus) pen - multi-dose SQ SCH (20:52)
[2018-03-30] VITALS (24 sets, daily range): BP systolic 83–173; BP diastolic 43–96
[2018-03-30] MEDS: piperacillin/tazobactam inj. 2.25 GM in normal saline 50ml IV IV SCH ×2 (00:34→07:56)
[2018-03-30] MEDS: mineral oil/petrolatum ophthal oint EACHEYE SCH ×4 (01:08→19:19)
[2018-03-30] MEDS: dexmedetomidin/NS 400mcg/100ml 100 ML IV SCH ×6 (01:10→19:44)
[2018-03-30] MEDS: FENTANYL-0.9 % NACL/PF 100 ML IV PRN ×2 (02:22→15:25)
[2018-03-30] MEDS: amiodarone/D5 360MG/200ML BAG 200 ML IV SCH ×4 (02:38→18:46)
[2018-03-30 03:11] LABS: ABG BASE EXCESS -1.1 mmol/L (-2.0-3.0); ABG HCO3 23.7 mmol/L (22.0-26.0); ABG OXYGEN SATURATION 95.3 % (95-98); ABG PO2 (T) 81.6 mmHg (83-108); ALLEN'S TEST Positive; FCOHb 0.3 % (0.5-1.5); FMetHb 0.1 % (0.3-1.12); FO2Hb 94.9 % (94-100); MINUTE VOLUME 8 L/min; PATIENT TEMPERATURE 37.2; PEEP 5 cm H2O; RESPIRATORY RATE 18 b/min; RESPIRATORY RATE (OBSERVED) 19 b/min; TIDAL VOLUME 450 mL; TOTAL HEMOGLOBIN 9.3 G/dl (12.0-16.0)
[2018-03-30 04:19] LABS: INR 1.1 INR; PARTIAL THROMBOPLASTIN TIME 29 SECONDS (22-32); PROTHROMBIN TIME 11.4 SECONDS (9.0-12.0)
[2018-03-30 04:21] LABS: ALANINE AMINOTRANSFERASE 18 U/L (12-78); ALBUMIN 1.3 G/DL (3.4-5.0); ALBUMIN/GLOBULIN RATIO 0.3 (1.1-1.5); ALKALINE PHOSPHATASE 183 IU/L (46-116); ANION GAP 9 (8-16); ASPARTATE AMINO TRANSFERASE 27 U/L (10-37); BILIRUBIN,TOTAL 0.2 MG/DL (0.1-1.0); BLOOD UREA NITROGEN 39 MG/DL (7-18); BUN/CREATININE RATIO 13.3 (6.6-38.0); CALCIUM 8.5 MG/DL (8.5-10.1); CHLORIDE 102 MMOL/L (99-107); CREATININE 2.94 MG/DL (0.40-0.90); GLUCOSE 151 MG/DL (70-104); PHOSPHORUS 2.5 MG/DL (2.3-4.5); POTASSIUM 3.9 MMOL/L (3.5-5.1); SODIUM 139 MMOL/L (135-145); TOTAL CARBON DIOXIDE 28.4 MMOL/L (24-32); TOTAL PROTEIN 6.2 G/DL (6.4-8.2); eGFR 16 ML/MIN
[2018-03-30 04:30] LABS: BASOPHILS % (AUTO) 0.4 % (0-1); EOSINOPHILS # (AUTO) 0.3 X10'3 (0-0.9); EOSINOPHILS % (AUTO) 2.1 % (0-6); HEMATOCRIT 24.7 % (35.0-45.0); LYMPHOCYTES # (AUTO) 0.6 X10'3 (1.1-4.8); LYMPHOCYTES % (AUTO) 4.7 % (21-51); MEAN CORPUSCULAR HEMOGLOBIN 28.9 PG (27.0-31.0); MEAN CORPUSCULAR HGB CONC 32.3 % (33.0-36.5); MEAN CORPUSCULAR VOLUME 89.3 FL (78-98); MONOCYTES % (AUTO) 7.7 % (2-12); NEUTROPHILS # (AUTO) 11.5 X10'3 (1.8-7.7); NEUTROPHILS % (AUTO) 85.1 % (42-75); PLATELET COUNT 453 X10'3 (140-440); RED BLOOD COUNT 2.77 X10'6 (4.20-5.60); RED CELL DISTRIBUTION WIDTH 17.3 % (11.5-14.5); WHITE BLOOD COUNT 13.5 X10'3 (4.5-11.0)
[2018-03-30] MEDS: LORazepam 2 mg/ml vial IV PRN ×3 (05:19→16:53)
[2018-03-30] MEDS: enoxaparin 60mg/0.6ml syringe SUBCUT SCH (07:56)
[2018-03-30] MEDS: famotidine/PF 10 mg/ml inj IV SCH ×2 (07:56→19:43)
[2018-03-30] MEDS: K, MAG and/or Phos replacement - Verify level? MC SCH (08:00)
[2018-03-30] MEDS ORDERED: heparin 1,000unit/ml 10ml vial 10 ML IV ONE (09:42)
[2018-03-30] MEDS ORDERED: albumin (human) 25% 100ml IV 100 ML IV PRN (09:45)
[2018-03-30] MEDS ORDERED: epoetin 20,000 units/ml inj IV ONE (09:45)
[2018-03-30] MEDS ORDERED: heparin 1,000 units/ml 10ml inj IV ONE (09:45)
[2018-03-30] MEDS ORDERED: heparin 1,000 units/ml 10ml inj HE ONE ×2 (09:50)
[2018-03-30] MEDS: acetaminophen 325mg tablet PO PRN (16:06)
[2018-03-30] MEDS: insulin glargine (Lantus) pen - multi-dose SQ SCH (19:44)
[2018-03-31] VITALS (24 sets, daily range): BP systolic 87–145; BP diastolic 52–81
[2018-03-31] MEDS: dexmedetomidin/NS 400mcg/100ml 100 ML IV SCH ×6 (00:10→20:00)
[2018-03-31] MEDS: FENTANYL-0.9 % NACL/PF 100 ML IV PRN ×3 (00:11→16:01)
[2018-03-31] MEDS: mineral oil/petrolatum ophthal oint EACHEYE SCH ×4 (02:00→20:00)
[2018-03-31 02:42] LABS: BASOPHILS # (AUTO) 0.1 X10'3 (0-0.2); BASOPHILS % (AUTO) 0.5 % (0-1); EOSINOPHILS # (AUTO) 0.2 X10'3 (0-0.9); EOSINOPHILS % (AUTO) 1.2 % (0-6); HEMOGLOBIN 7.1 g/dl (12.0-16.0); LYMPHOCYTES # (AUTO) 0.5 X10'3 (1.1-4.8); LYMPHOCYTES % (AUTO) 3.6 % (21-51); MEAN CORPUSCULAR HEMOGLOBIN 28.8 PG (27.0-31.0); MEAN CORPUSCULAR HGB CONC 32.3 % (33.0-36.5); MEAN CORPUSCULAR VOLUME 89.1 FL (78-98); MEAN PLATELET VOLUME 7.9 FL (7.4-10.4); MONOCYTES # (AUTO) 0.9 X10'3 (0-0.9); MONOCYTES % (AUTO) 6.7 % (2-12); NEUTROPHILS # (AUTO) 12.2 X10'3 (1.8-7.7); PLATELET COUNT 461 X10'3 (140-440); RED BLOOD COUNT 2.45 X10'6 (4.20-5.60); RED CELL DISTRIBUTION WIDTH 17.3 % (11.5-14.5); WHITE BLOOD COUNT 13.8 X10'3 (4.5-11.0)
[2018-03-31 02:49] LABS: INR 1.1 INR; PARTIAL THROMBOPLASTIN TIME 29 SECONDS (22-32); PROTHROMBIN TIME 11.4 SECONDS (9.0-12.0)
[2018-03-31] MEDS: LORazepam 2 mg/ml vial IV PRN ×4 (02:50→22:52)
[2018-03-31 02:53] LABS: ALANINE AMINOTRANSFERASE 18 U/L (12-78); ALBUMIN 1.3 G/DL (3.4-5.0); ALBUMIN/GLOBULIN RATIO 0.3 (1.1-1.5); ALKALINE PHOSPHATASE 144 IU/L (46-116); ANION GAP 7 (8-16); ASPARTATE AMINO TRANSFERASE 23 U/L (10-37); BILIRUBIN,TOTAL 0.2 MG/DL (0.1-1.0); BLOOD UREA NITROGEN 37 MG/DL (7-18); BUN/CREATININE RATIO 13.4 (6.6-38.0); CALCIUM 8.4 MG/DL (8.5-10.1); CHLORIDE 101 MMOL/L (99-107); CREATININE 2.77 MG/DL (0.40-0.90); GLUCOSE 131 MG/DL (70-104); HEMATOCRIT 21.9 % (35.0-45.0); MAGNESIUM 1.8 MG/DL (1.5-2.4); PHOSPHORUS 2.5 MG/DL (2.3-4.5); POTASSIUM 3.8 MMOL/L (3.5-5.1); PREALBUMIN 12.1 MG/DL (19-36); SODIUM 137 MMOL/L (135-145); TOTAL CARBON DIOXIDE 29.3 MMOL/L (24-32); TOTAL PROTEIN 5.9 G/DL (6.4-8.2); TRIGLYCERIDES 113 MG/DL (20-135); VANCOMYCIN,RANDOM 27.1 UG/ML; eGFR 17 ML/MIN
[2018-03-31] MEDS: amiodarone/D5 360MG/200ML BAG 200 ML IV SCH ×4 (02:54→20:10)
[2018-03-31] MEDS: VANCOMYCIN LEVEL IV SCH (03:00)
[2018-03-31 05:01] LABS: ABG BASE EXCESS -1.8 mmol/L (-2.0-3.0); ABG HCO3 23.1 mmol/L (22.0-26.0); ABG OXYGEN SATURATION 95.2 % (95-98); ABG PCO2 (T) 40.8 mmHg (32.0-45.0); ABG PH (T) 7.374 (7.350-7.450); ABG PO2 (T) 79.7 mmHg (83-108); ALLEN'S TEST Positive; FCOHb 0.2 % (0.5-1.5); FMetHb 0.1 % (0.3-1.12); FO2Hb 94.9 % (94-100); MINUTE VOLUME 7 L/min; PATIENT TEMPERATURE 37.5; PEEP 5 cm H2O; RESPIRATORY RATE (OBSERVED) 18 b/min; TIDAL VOLUME 424 mL; TOTAL HEMOGLOBIN 8.6 G/dl (12.0-16.0)
[2018-03-31] MEDS: enoxaparin 60mg/0.6ml syringe SUBCUT SCH (07:10)
[2018-03-31] MEDS: famotidine/PF 10 mg/ml inj IV SCH ×2 (07:10→20:57)
[2018-03-31] MEDS: K, MAG and/or Phos replacement - Verify level? MC SCH (08:00)
[2018-03-31] MEDS ORDERED: vancomycin inj 1,250 MG in normal saline 250ml IV soln 250 ML IV PRN (08:00)
[2018-03-31] MEDS ORDERED: epoetin 20,000 units/ml inj IV ONE ×2 (08:00)
[2018-03-31] MEDS ORDERED: heparin 1,000 units/ml 10ml inj IV ONE (08:00)
[2018-03-31] MEDS ORDERED: heparin 1,000 units/ml 10ml inj HE ONE ×4 (08:00)
[2018-03-31] MEDS ORDERED: heparin 1,000unit/ml 10ml vial 10 ML IV ONE ×2 (08:00)
[2018-03-31] MEDS ORDERED: albumin (human) 25% 100ml IV 100 ML IV PRN ×2 (08:00)
[2018-03-31] MEDS: fluconazole-Diflucan 200mg/NS 100 ML IV SCH (11:12)
[2018-03-31] MEDS: NORepinephrine 8mg/ 250ml NS 250 ML IV SCH (20:02)
[2018-03-31] MEDS: insulin glargine (Lantus) pen - multi-dose SQ SCH (21:00)
[2018-04-01] VITALS (23 sets, daily range): BP systolic 86–169; BP diastolic 44–77
[2018-04-01] MEDS: dexmedetomidin/NS 400mcg/100ml 100 ML IV SCH ×5 (00:55→23:52)
[2018-04-01] MEDS: FENTANYL-0.9 % NACL/PF 100 ML IV PRN ×4 (00:55→19:38)
[2018-04-01] MEDS: mineral oil/petrolatum ophthal oint EACHEYE SCH ×4 (02:00→20:42)
[2018-04-01] MEDS: VANCOMYCIN LEVEL IV SCH (03:00)
[2018-04-01 03:20] LABS: ABG HCO3 22.3 mmol/L (22.0-26.0); ABG OXYGEN SATURATION 94.2 % (95-98); ABG PCO2 (T) 41.6 mmHg (32.0-45.0); ABG PH (T) 7.349 (7.350-7.450); ABG PO2 (T) 74.2 mmHg (83-108); ALLEN'S TEST Positive; FCOHb 0.1 % (0.5-1.5); FMetHb 0.1 % (0.3-1.12); MINUTE VOLUME 9 L/min; PATIENT TEMPERATURE 37.4; PEEP 5 cm H2O; RESPIRATORY RATE (OBSERVED) 27 b/min; TIDAL VOLUME 314 mL; TOTAL HEMOGLOBIN 8.2 G/dl (12.0-16.0)
[2018-04-01 03:59] LABS: BASOPHILS # (AUTO) 0.1 X10'3 (0-0.2); BASOPHILS % (AUTO) 0.6 % (0-1); EOSINOPHILS # (AUTO) 0.5 X10'3 (0-0.9); EOSINOPHILS % (AUTO) 3.7 % (0-6); HEMOGLOBIN 7.5 g/dl (12.0-16.0); LYMPHOCYTES # (AUTO) 0.8 X10'3 (1.1-4.8); LYMPHOCYTES % (AUTO) 5.8 % (21-51); MEAN CORPUSCULAR HGB CONC 31.4 % (33.0-36.5); MEAN CORPUSCULAR VOLUME 89.3 FL (78-98); MEAN PLATELET VOLUME 8.1 FL (7.4-10.4); MONOCYTES # (AUTO) 1.1 X10'3 (0-0.9); MONOCYTES % (AUTO) 8.5 % (2-12); NEUTROPHILS # (AUTO) 10.9 X10'3 (1.8-7.7); NEUTROPHILS % (AUTO) 81.4 % (42-75); PLATELET COUNT 514 X10'3 (140-440); RED BLOOD COUNT 2.68 X10'6 (4.20-5.60); RED CELL DISTRIBUTION WIDTH 17.1 % (11.5-14.5); WHITE BLOOD COUNT 13.4 X10'3 (4.5-11.0)
[2018-04-01 04:37] LABS: ANION GAP 10 (8-16); BLOOD UREA NITROGEN 46 MG/DL (7-18); CHLORIDE 101 MMOL/L (99-107); CREATININE 3.17 MG/DL (0.40-0.90); GLUCOSE 129 MG/DL (70-104); POTASSIUM 3.8 MMOL/L (3.5-5.1); SODIUM 137 MMOL/L (135-145); TOTAL CARBON DIOXIDE 25.7 MMOL/L (24-32)
[2018-04-01 04:38] LABS: ALANINE AMINOTRANSFERASE 20 U/L (12-78); ALBUMIN 1.3 G/DL (3.4-5.0); ALBUMIN/GLOBULIN RATIO 0.3 (1.1-1.5); ALKALINE PHOSPHATASE 151 IU/L (46-116); ASPARTATE AMINO TRANSFERASE 20 U/L (10-37); BILIRUBIN,TOTAL 0.2 MG/DL (0.1-1.0); BUN/CREATININE RATIO 14.5 (6.6-38.0); CALCIUM 8.3 MG/DL (8.5-10.1); MAGNESIUM 1.8 MG/DL (1.5-2.4); PHOSPHORUS 2.5 MG/DL (2.3-4.5); TOTAL PROTEIN 6.1 G/DL (6.4-8.2); VANCOMYCIN,RANDOM 22.6 UG/ML; eGFR 15 ML/MIN
[2018-04-01 04:40] LABS: INR 1.1 INR; PARTIAL THROMBOPLASTIN TIME 28 SECONDS (22-32); PROTHROMBIN TIME 11.2 SECONDS (9.0-12.0)
[2018-04-01] MEDS: amiodarone/D5 360MG/200ML BAG 200 ML IV SCH ×3 (05:09→16:40)
[2018-04-01] MEDS: famotidine/PF 10 mg/ml inj IV SCH ×2 (08:07→20:42)
[2018-04-01] MEDS: fluconazole-Diflucan 200mg/NS 100 ML IV SCH (08:07)
[2018-04-01] MEDS: enoxaparin 60mg/0.6ml syringe SUBCUT SCH (08:08)
[2018-04-01] MEDS: Dakins solution (1/4 strength) 473ml solution TP SCH (14:03)
[2018-04-01] MEDS: LORazepam 2 mg/ml vial IV PRN ×2 (15:42→21:59)
[2018-04-01] MEDS: insulin glargine (Lantus) pen - multi-dose SQ SCH (20:43)
[2018-04-02] VITALS (24 sets, daily range): BP systolic 73–171; BP diastolic 44–79
[2018-04-02] MEDS: mineral oil/petrolatum ophthal oint EACHEYE SCH ×2 (02:29→07:54)
[2018-04-02] MEDS: VANCOMYCIN LEVEL IV SCH (02:29)
[2018-04-02] MEDS: FENTANYL-0.9 % NACL/PF 100 ML IV PRN ×2 (02:29→10:27)
[2018-04-02 02:50] LABS: BASOPHILS % (AUTO) 0 % (0-1); EOSINOPHILS # (AUTO) 0.6 X10'3 (0-0.9); EOSINOPHILS % (AUTO) 4.7 % (0-6); HEMATOCRIT 22.4 % (35.0-45.0); HEMOGLOBIN 7.2 g/dl (12.0-16.0); LYMPHOCYTES # (AUTO) 0.5 X10'3 (1.1-4.8); LYMPHOCYTES % (AUTO) 4.1 % (21-51); MEAN CORPUSCULAR HEMOGLOBIN 28.5 PG (27.0-31.0); MEAN CORPUSCULAR HGB CONC 32.1 % (33.0-36.5); MEAN CORPUSCULAR VOLUME 89.1 FL (78-98); MONOCYTES % (AUTO) 8.4 % (2-12); NEUTROPHILS # (AUTO) 10.2 X10'3 (1.8-7.7); NEUTROPHILS % (AUTO) 82.8 % (42-75); PLATELET COUNT 542 X10'3 (140-440); RED BLOOD COUNT 2.51 X10'6 (4.20-5.60); RED CELL DISTRIBUTION WIDTH 17.5 % (11.5-14.5); WHITE BLOOD COUNT 12.3 X10'3 (4.5-11.0)
[2018-04-02 02:51] LABS: ABG BASE EXCESS -5.2 mmol/L (-2.0-3.0); ABG HCO3 20.4 mmol/L (22.0-26.0); ABG OXYGEN SATURATION 94.6 % (95-98); ABG PCO2 (T) 38.4 mmHg (32.0-45.0); ABG PH (T) 7.338 (7.350-7.450); ABG PO2 (T) 73.8 mmHg (83-108); ALLEN'S TEST Positive; FCOHb 0.2 % (0.5-1.5); FMetHb 0.2 % (0.3-1.12); FO2Hb 94.2 % (94-100); MINUTE VOLUME 7 L/min; PATIENT TEMPERATURE 36.2; PEEP 5 cm H2O; RESPIRATORY RATE (OBSERVED) 18 b/min
[2018-04-02 03:01] LABS: INR 1.1 INR; PROTHROMBIN TIME 11.4 SECONDS (9.0-12.0)
[2018-04-02 03:06] LABS: ALANINE AMINOTRANSFERASE 16 U/L (12-78); ALBUMIN 1.3 G/DL (3.4-5.0); ALBUMIN/GLOBULIN RATIO 0.3 (1.1-1.5); ALKALINE PHOSPHATASE 134 IU/L (46-116); ANION GAP 10 (8-16); ASPARTATE AMINO TRANSFERASE 18 U/L (10-37); BILIRUBIN,TOTAL 0.2 MG/DL (0.1-1.0); BLOOD UREA NITROGEN 55 MG/DL (7-18); BUN/CREATININE RATIO 15.2 (6.6-38.0); CALCIUM 8.5 MG/DL (8.5-10.1); CHLORIDE 101 MMOL/L (99-107); CREATININE 3.63 MG/DL (0.40-0.90); GLUCOSE 111 MG/DL (70-104); MAGNESIUM 1.6 MG/DL (1.5-2.4); PHOSPHORUS 3.2 MG/DL (2.3-4.5); POTASSIUM 3.9 MMOL/L (3.5-5.1); SODIUM 137 MMOL/L (135-145); TOTAL CARBON DIOXIDE 26.3 MMOL/L (24-32); TOTAL PROTEIN 5.9 G/DL (6.4-8.2); VANCOMYCIN,RANDOM 20.9 UG/ML; eGFR 13 ML/MIN
[2018-04-02] MEDS: LORazepam 2 mg/ml vial IV PRN ×4 (03:14→16:21)
[2018-04-02] MEDS: dexmedetomidin/NS 400mcg/100ml 100 ML IV SCH ×4 (04:28→15:51)
[2018-04-02] MEDS: famotidine/PF 10 mg/ml inj IV SCH ×2 (07:54→19:53)
[2018-04-02] MEDS: enoxaparin 60mg/0.6ml syringe SUBCUT SCH (07:55)
[2018-04-02] MEDS: Dakins solution (1/4 strength) 473ml solution TP SCH (07:55)
[2018-04-02] MEDS: fluconazole-Diflucan 200mg/NS 100 ML IV SCH (07:56)
[2018-04-02] MEDS ORDERED: normal saline 1000ml 250 ML IV PRN (08:39)
[2018-04-02] MEDS ORDERED: heparin 1,000unit/ml 10ml vial 10 ML IV ONE (08:39)
[2018-04-02] MEDS ORDERED: epoetin 20,000 units/ml inj IV ONE (08:40)
[2018-04-02] MEDS ORDERED: heparin 1,000 units/ml 10ml inj HE ONE ×2 (08:45)
[2018-04-02] MEDS ORDERED: ipratropium/albuterol 3ml nebule NEB PRN (13:40)
[2018-04-02] MEDS ORDERED: naloxone 0.4 mg/ml inj IV PRN (13:40)
[2018-04-02] MEDS ORDERED: CADD PCA waste documentation MC PRN (13:40)
[2018-04-02] MEDS ORDERED: racepinephrine 11.25mg/0.5ml nebule NEB PRN (13:40)
[2018-04-02] MEDS: HYDROmorphone/NS 1 mg/ml CADD 50 ML IV SCH ×6 (14:38→23:00)
[2018-04-02] MEDS: ipratropium/albuterol 3ml nebule NEB SCH ×2 (15:57→20:16)
[2018-04-02 16:31] LABS: ABG BASE EXCESS 0.9 mmol/L (-2.0-3.0); ABG HCO3 28.3 mmol/L (22.0-26.0); ABG OXYGEN SATURATION 98.7 % (95-98); ABG PH (T) 7.284 (7.350-7.450); FCOHb 0.1 % (0.5-1.5); FMetHb 0.1 % (0.3-1.12); FO2Hb 98.5 % (94-100); MINUTE VOLUME 16 L/min; RESPIRATORY RATE 18 b/min; RESPIRATORY RATE (OBSERVED) 37 b/min; TOTAL HEMOGLOBIN 9.2 G/dl (12.0-16.0)
[2018-04-02 19:05] LABS: ABG BASE EXCESS 1.7 mmol/L (-2.0-3.0); ABG HCO3 27.4 mmol/L (22.0-26.0); ABG OXYGEN SATURATION 98.2 % (95-98); ABG PCO2 (T) 48.8 mmHg (32.0-45.0); ABG PH (T) 7.367 (7.350-7.450); ABG PO2 (T) 113.9 mmHg (83-108); ALLEN'S TEST Positive; FCOHb 0.2 % (0.5-1.5); FMetHb 0.1 % (0.3-1.12); FO2Hb 97.9 % (94-100); MINUTE VOLUME 17 L/min; PATIENT TEMPERATURE 37.2; RESPIRATORY RATE 22 b/min; RESPIRATORY RATE (OBSERVED) 22 b/min; TOTAL HEMOGLOBIN 8.6 G/dl (12.0-16.0)
[2018-04-02] MEDS: insulin glargine (Lantus) pen - multi-dose SQ SCH (21:00)
[2018-04-03] VITALS (23 sets, daily range): BP systolic 83–151; BP diastolic 47–73
[2018-04-03] MEDS: dexmedetomidin/NS 400mcg/100ml 100 ML IV SCH ×3 (00:58→15:28)
[2018-04-03] MEDS: HYDROmorphone/NS 1 mg/ml CADD 50 ML IV SCH ×12 (00:59→23:00)
[2018-04-03] MEDS: ipratropium/albuterol 3ml nebule NEB SCH ×4 (02:21→20:12)
[2018-04-03] MEDS: LORazepam 2 mg/ml vial IV PRN ×2 (02:21→21:49)
[2018-04-03] MEDS: VANCOMYCIN LEVEL IV SCH (02:37)
[2018-04-03 02:40] LABS: ABG BASE EXCESS 1.6 mmol/L (-2.0-3.0); ABG HCO3 27.3 mmol/L (22.0-26.0); ABG OXYGEN SATURATION 97.3 % (95-98); ABG PCO2 (T) 47.8 mmHg (32.0-45.0); ABG PH (T) 7.374 (7.350-7.450); ABG PO2 (T) 92.1 mmHg (83-108); ALLEN'S TEST Positive; FCOHb 0.3 % (0.5-1.5); FMetHb 0.2 % (0.3-1.12); FO2Hb 96.8 % (94-100); MINUTE VOLUME 12 L/min; PATIENT TEMPERATURE 36.6; RESPIRATORY RATE 22 b/min; RESPIRATORY RATE (OBSERVED) 25 b/min
[2018-04-03 03:10] LABS: INR 1.2 INR
[2018-04-03 03:18] LABS: ALANINE AMINOTRANSFERASE 18 U/L (12-78); ALBUMIN 1.3 G/DL (3.4-5.0); ALBUMIN/GLOBULIN RATIO 0.3 (1.1-1.5); ALKALINE PHOSPHATASE 127 IU/L (46-116); ANION GAP 6 (8-16); ASPARTATE AMINO TRANSFERASE 17 U/L (10-37); BILIRUBIN,TOTAL 0.1 MG/DL (0.1-1.0); BLOOD UREA NITROGEN 29 MG/DL (7-18); BUN/CREATININE RATIO 12.9 (6.6-38.0); CALCIUM 8.3 MG/DL (8.5-10.1); CHLORIDE 102 MMOL/L (99-107); CREATININE 2.24 MG/DL (0.40-0.90); GLUCOSE 99 MG/DL (70-104); MAGNESIUM 1.6 MG/DL (1.5-2.4); PHOSPHORUS 2.1 MG/DL (2.3-4.5); POTASSIUM 4.2 MMOL/L (3.5-5.1); PREALBUMIN 13.5 MG/DL (19-36); SODIUM 138 MMOL/L (135-145); TOTAL CARBON DIOXIDE 29.9 MMOL/L (24-32); TOTAL PROTEIN 5.9 G/DL (6.4-8.2); TRIGLYCERIDES 122 MG/DL (20-135); VANCOMYCIN,RANDOM 14.1 UG/ML; eGFR 22 ML/MIN
[2018-04-03 04:45] LABS: PLATELET COUNT 595 X10'3 (140-440)
[2018-04-03 04:47] LABS: MEAN CORPUSCULAR HEMOGLOBIN 29.9 PG (27.0-31.0); MEAN CORPUSCULAR HGB CONC 33.6 % (33.0-36.5); MEAN CORPUSCULAR VOLUME 88.8 FL (78-98); RED BLOOD COUNT 2.42 X10'6 (4.20-5.60); WHITE BLOOD COUNT 13.1 X10'3 (4.5-11.0)
[2018-04-03 04:48] LABS: BASOPHILS # (AUTO) 0.1 X10'3 (0-0.2); BASOPHILS % (AUTO) 0.5 % (0-1); EOSINOPHILS # (AUTO) 0.3 X10'3 (0-0.9); EOSINOPHILS % (AUTO) 2.1 % (0-6); LYMPHOCYTES # (AUTO) 0.4 X10'3 (1.1-4.8); LYMPHOCYTES % (AUTO) 2.7 % (21-51); MEAN PLATELET VOLUME 8.4 FL (7.4-10.4); MONOCYTES # (AUTO) 1.3 X10'3 (0-0.9); MONOCYTES % (AUTO) 9.6 % (2-12); NEUTROPHILS % (AUTO) 85.1 % (42-75)
[2018-04-03 04:51] LABS: HEMATOCRIT 21.5 % (35.0-45.0); HEMOGLOBIN 7.2 g/dl (12.0-16.0)
[2018-04-03] MEDS ORDERED: vancomycin inj 1,250 MG in normal saline 250ml IV soln 250 ML IV ONE (06:35)
[2018-04-03] MEDS: sodium phosphate inj. 15 MMOL in dextrose 5%-water 150 ML IV PRN (07:16)
[2018-04-03] MEDS: enoxaparin 60mg/0.6ml syringe SUBCUT SCH (07:21)
[2018-04-03] MEDS: famotidine/PF 10 mg/ml inj IV SCH ×2 (07:21→20:54)
[2018-04-03] MEDS: fluconazole-Diflucan 200mg/NS 100 ML IV SCH (07:21)
[2018-04-03] MEDS: NORepinephrine 8mg/ 250ml NS 250 ML IV SCH (07:26)
[2018-04-03] MEDS: Dakins solution (1/4 strength) 473ml solution TP SCH (08:00)
[2018-04-03 11:01] LABS: ABG BASE EXCESS 0.5 mmol/L (-2.0-3.0); ABG HCO3 27.1 mmol/L (22.0-26.0); ABG PCO2 (T) 54.6 mmHg (32.0-45.0); ABG PH (T) 7.313 (7.350-7.450); ABG PO2 (T) 168.3 mmHg (83-108); ALLEN'S TEST Positive; FCOHb 0.3 % (0.5-1.5); FLOW 4 L/min; FMetHb 0.2 % (0.3-1.12); FO2Hb 98.5 % (94-100); TOTAL HEMOGLOBIN 8.2 G/dl (12.0-16.0)
[2018-04-03 12:41] LABS: % IRON SATURATION 4 % (11-46); IRON 9 UG/DL (49-151); TOTAL IRON BINDING CAPACITY 245 UG/DL (259-388)
[2018-04-03 17:07] LABS: FERRITIN 88 NG/ML (8-252)
[2018-04-03] MEDS: lactobacillus rhamnosus 10,000 MMU CELLS/CAPSULE PO SCH (20:54)
[2018-04-03] MEDS: insulin glargine (Lantus) pen - multi-dose SQ SCH (21:00)
[2018-04-04] VITALS (24 sets, daily range): BP systolic 90–141; BP diastolic 46–79
[2018-04-04] MEDS: albuterol 2.5 MG/3 ML nebule NEB PRN (00:54)
[2018-04-04] MEDS: acetaminophen 325mg tablet PO PRN (00:58)
[2018-04-04] MEDS: HYDROmorphone/NS 1 mg/ml CADD 50 ML IV SCH ×12 (01:00→23:00)
[2018-04-04] MEDS: LORazepam 2 mg/ml vial IV PRN (02:10)
[2018-04-04] MEDS: VANCOMYCIN LEVEL IV SCH (02:10)
[2018-04-04 02:45] LABS: BASOPHILS % (AUTO) 0.1 % (0-1); EOSINOPHILS # (AUTO) 0.3 X10'3 (0-0.9); EOSINOPHILS % (AUTO) 2.2 % (0-6); HEMOGLOBIN 7.7 g/dl (12.0-16.0); LYMPHOCYTES # (AUTO) 0.4 X10'3 (1.1-4.8); LYMPHOCYTES % (AUTO) 2.5 % (21-51); MEAN CORPUSCULAR HEMOGLOBIN 29.7 PG (27.0-31.0); MEAN CORPUSCULAR HGB CONC 33.6 % (33.0-36.5); MEAN CORPUSCULAR VOLUME 88.4 FL (78-98); MEAN PLATELET VOLUME 8.2 FL (7.4-10.4); MONOCYTES # (AUTO) 0.9 X10'3 (0-0.9); MONOCYTES % (AUTO) 5.9 % (2-12); NEUTROPHILS # (AUTO) 13.3 X10'3 (1.8-7.7); NEUTROPHILS % (AUTO) 89.3 % (42-75); PLATELET COUNT 733 X10'3 (140-440); RED CELL DISTRIBUTION WIDTH 16.4 % (11.5-14.5); WHITE BLOOD COUNT 14.9 X10'3 (4.5-11.0)
[2018-04-04 02:52] LABS: ALANINE AMINOTRANSFERASE 15 U/L (12-78); ALBUMIN 1.3 G/DL (3.4-5.0); ALBUMIN/GLOBULIN RATIO 0.3 (1.1-1.5); ALKALINE PHOSPHATASE 140 IU/L (46-116); ANION GAP 8 (8-16); ASPARTATE AMINO TRANSFERASE 17 U/L (10-37); BILIRUBIN,TOTAL 0.2 MG/DL (0.1-1.0); BLOOD UREA NITROGEN 35 MG/DL (7-18); BUN/CREATININE RATIO 12.4 (6.6-38.0); CALCIUM 8.4 MG/DL (8.5-10.1); CHLORIDE 103 MMOL/L (99-107); CREATININE 2.83 MG/DL (0.40-0.90); GLUCOSE 151 MG/DL (70-104); MAGNESIUM 1.6 MG/DL (1.5-2.4); POTASSIUM 3.9 MMOL/L (3.5-5.1); SODIUM 138 MMOL/L (135-145); TOTAL PROTEIN 5.8 G/DL (6.4-8.2); eGFR 17 ML/MIN
[2018-04-04 03:28] LABS: ANISOCYTOSIS 1+; PLATELET ESTIMATE INCREASED; TOTAL CELLS COUNTED 100
[2018-04-04 03:29] LABS: HYPOCHROMASIA 1+; POLYCHROMASIA 2+
[2018-04-04 03:30] LABS: POIKILOCYTOSIS 1+; STOMATOCYTES 1+
[2018-04-04] MEDS: ipratropium/albuterol 3ml nebule NEB SCH ×4 (03:46→21:05)
[2018-04-04] MEDS: famotidine/PF 10 mg/ml inj IV SCH ×2 (07:44→20:27)
[2018-04-04] MEDS: enoxaparin 60mg/0.6ml syringe SUBCUT SCH (07:45)
[2018-04-04] MEDS: fluconazole-Diflucan 200mg/NS 100 ML IV SCH (07:45)
[2018-04-04] MEDS: lactobacillus rhamnosus 10,000 MMU CELLS/CAPSULE PO SCH ×2 (07:45→20:27)
[2018-04-04] MEDS ORDERED: epoetin 20,000 units/ml inj IV ONE (08:00)
[2018-04-04] MEDS ORDERED: heparin 1,000unit/ml 10ml vial 10 ML IV ONE (08:00)
[2018-04-04] MEDS: heparin 1,000 units/ml 10ml inj HE ONE ×4 (08:00→13:03)
[2018-04-04] MEDS ORDERED: normal saline 1000ml 250 ML IV PRN (08:00)
[2018-04-04] MEDS: dexmedetomidin/NS 400mcg/100ml 100 ML IV SCH ×4 (08:27→21:58)
[2018-04-04] MEDS: sodium ferric gluc complex inj 125 MG in normal saline 100ml IV soln 100 ML IV SCH (09:33)
[2018-04-04] MEDS: ondansetron/PF 4mg/2ml inj IV PRN ×2 (11:12→22:23)
[2018-04-04] MEDS ORDERED: tPA-cathflo 2 MG/2 ml IV flush IVF ONE (16:05)
[2018-04-04] MEDS: insulin glargine (Lantus) pen - multi-dose SQ SCH (21:00)
[2018-04-05] VITALS (27 sets, daily range): BP systolic 91–148; BP diastolic 46–73
[2018-04-05] MEDS: HYDROmorphone/NS 1 mg/ml CADD 50 ML IV SCH ×12 (01:00→23:00)
[2018-04-05] MEDS: VANCOMYCIN LEVEL IV SCH (02:25)
[2018-04-05] MEDS: dexmedetomidin/NS 400mcg/100ml 100 ML IV SCH ×4 (02:26→20:15)
[2018-04-05] MEDS: ipratropium/albuterol 3ml nebule NEB SCH ×4 (02:45→20:14)
[2018-04-05 04:11] LABS: ALANINE AMINOTRANSFERASE 15 U/L (12-78); ALBUMIN 1.1 G/DL (3.4-5.0); ALBUMIN/GLOBULIN RATIO 0.3 (1.1-1.5); ALKALINE PHOSPHATASE 130 IU/L (46-116); ANION GAP 7 (8-16); ASPARTATE AMINO TRANSFERASE 13 U/L (10-37); BILIRUBIN,TOTAL 0.2 MG/DL (0.1-1.0); BLOOD UREA NITROGEN 21 MG/DL (7-18); BUN/CREATININE RATIO 10.8 (6.6-38.0); CALCIUM 7.5 MG/DL (8.5-10.1); CHLORIDE 103 MMOL/L (99-107); CREATININE 1.95 MG/DL (0.40-0.90); GLUCOSE 150 MG/DL (70-104); MAGNESIUM 1.4 MG/DL (1.5-2.4); PHOSPHORUS 1.4 MG/DL (2.3-4.5); POTASSIUM 3.5 MMOL/L (3.5-5.1); SODIUM 139 MMOL/L (135-145); TOTAL CARBON DIOXIDE 29.5 MMOL/L (24-32); TOTAL PROTEIN 5.4 G/DL (6.4-8.2); VANCOMYCIN,RANDOM 19.5 UG/ML; eGFR 26 ML/MIN
[2018-04-05 04:22] LABS: BASOPHILS % (AUTO) 0.1 % (0-1); EOSINOPHILS # (AUTO) 0.3 X10'3 (0-0.9); EOSINOPHILS % (AUTO) 1.8 % (0-6); HEMOGLOBIN 7.2 g/dl (12.0-16.0); LYMPHOCYTES # (AUTO) 0.5 X10'3 (1.1-4.8); LYMPHOCYTES % (AUTO) 2.9 % (21-51); MEAN CORPUSCULAR HEMOGLOBIN 29.6 PG (27.0-31.0); MEAN CORPUSCULAR HGB CONC 33.5 % (33.0-36.5); MEAN CORPUSCULAR VOLUME 88.4 FL (78-98); MEAN PLATELET VOLUME 7.7 FL (7.4-10.4); MONOCYTES # (AUTO) 0.9 X10'3 (0-0.9); MONOCYTES % (AUTO) 5.5 % (2-12); NEUTROPHILS # (AUTO) 13.9 X10'3 (1.8-7.7); NEUTROPHILS % (AUTO) 89.7 % (42-75); PLATELET COUNT 715 X10'3 (140-440); RED BLOOD COUNT 2.42 X10'6 (4.20-5.60); RED CELL DISTRIBUTION WIDTH 16.4 % (11.5-14.5); WHITE BLOOD COUNT 15.6 X10'3 (4.5-11.0)
[2018-04-05 04:51] LABS: HEMATOCRIT 21.4 % (35.0-45.0)
[2018-04-05 05:00] LABS: ANISOCYTOSIS 1+; PLATELET ESTIMATE INCREASED; POLYCHROMASIA FEW; TOTAL CELLS COUNTED 100
[2018-04-05 05:01] LABS: LARGE PLATELETS FEW; STOMATOCYTES 1+
[2018-04-05 05:02] LABS: HYPOCHROMASIA 1+
[2018-04-05] MEDS: famotidine/PF 10 mg/ml inj IV SCH ×2 (07:07→20:35)
[2018-04-05] MEDS: lactobacillus rhamnosus 10,000 MMU CELLS/CAPSULE PO SCH ×2 (07:08→20:55)
[2018-04-05] MEDS: fluconazole-Diflucan 200mg/NS 100 ML IV SCH (07:08)
[2018-04-05] MEDS ORDERED: magnesium 4gm in 100ml NS 100 ML IV PRN (08:05)
[2018-04-05] MEDS ORDERED: magnesium 1gm/100ml D5W IVPB 100 ML IV PRN (08:05)
[2018-04-05] MEDS ORDERED: sodium phosphate inj. 15 MMOL in dextrose 5%-water 150 ML IV PRN (08:05)
[2018-04-05] MEDS ORDERED: potassium Cl 40MEQ/250ML bag 250 ML IV PRN ×2 (08:05)
[2018-04-05] MEDS ORDERED: magnesium Cl slow-release 64mg tablet PO PRN (08:05)
[2018-04-05] MEDS ORDERED: sodium phosphate inj. 30 MMOL in dextrose 5%-water 250 ML IV PRN (08:05)
[2018-04-05] MEDS ORDERED: potassium Cl 20 mEq SR tablet PO PRN ×2 (08:05)
[2018-04-05] MEDS: sodium ferric gluc complex inj 125 MG in normal saline 100ml IV soln 100 ML IV SCH (08:47)
[2018-04-05] MEDS: K and/or MAG REPLACEMENT MC SCH (08:47)
[2018-04-05] MEDS: heparin, porcine 5000 units/ml vial SQ SCH ×2 (08:59→20:35)
[2018-04-05] MEDS ORDERED: heparin 1,000unit/ml 10ml vial 10 ML IV ONE (09:16)
[2018-04-05] MEDS ORDERED: heparin 1,000 units/ml 10ml inj HE ONE ×2 (09:20)
[2018-04-05 11:35] LABS: MEAN CORPUSCULAR HGB CONC 33.3 % (33.0-36.5); MEAN CORPUSCULAR VOLUME 87.3 FL (78-98); MEAN PLATELET VOLUME 7.9 FL (7.4-10.4); PLATELET COUNT 736 X10'3 (140-440); RED BLOOD COUNT 2.41 X10'6 (4.20-5.60); RED CELL DISTRIBUTION WIDTH 16.3 % (11.5-14.5); WHITE BLOOD COUNT 16.1 X10'3 (4.5-11.0)
[2018-04-05 11:39] LABS: HEMATOCRIT 21.1 % (35.0-45.0)
[2018-04-05] MEDS ORDERED: CEFEPIME 1 GM in NORMAL SALINE 100ml IV.SOLN IV ONE (13:10)
[2018-04-05] MEDS: cefepime inj. 0.5 GM in normal saline 100ml IV soln 100 ML IV SCH (20:35)
[2018-04-05] MEDS: insulin glargine (Lantus) pen - multi-dose SQ SCH (21:00)
[2018-04-05] MEDS: LORazepam 2 mg/ml vial IV PRN (21:11)
[2018-04-05] MEDS ORDERED: amiodarone/D5 360MG/200ML BAG 200 ML IV ONE (21:15)
[2018-04-05] MEDS: amiodarone/D5 360MG/200ML BAG 200 ML IV SCH (21:30)
[2018-04-06] VITALS (24 sets, daily range): BP systolic 102–175; BP diastolic 58–96
[2018-04-06] MEDS: acetaminophen 325mg tablet PO PRN (00:50)
[2018-04-06] MEDS: HYDROmorphone/NS 1 mg/ml CADD 50 ML IV SCH ×12 (01:00→23:00)
[2018-04-06] MEDS: ipratropium/albuterol 3ml nebule NEB SCH ×4 (02:39→20:06)
[2018-04-06] MEDS: dexmedetomidin/NS 400mcg/100ml 100 ML IV SCH ×3 (02:57→18:17)
[2018-04-06] MEDS: VANCOMYCIN LEVEL IV SCH (03:00)
[2018-04-06 03:11] LABS: VANCOMYCIN,RANDOM 16.2 UG/ML
[2018-04-06 03:38] LABS: ALANINE AMINOTRANSFERASE 15 U/L (12-78); ALBUMIN 1.2 G/DL (3.4-5.0); ALBUMIN/GLOBULIN RATIO 0.3 (1.1-1.5); ALKALINE PHOSPHATASE 158 IU/L (46-116); ANION GAP 7 (8-16); ASPARTATE AMINO TRANSFERASE 22 U/L (10-37); BILIRUBIN,TOTAL 0.2 MG/DL (0.1-1.0); CHLORIDE 103 MMOL/L (99-107); CREATININE 1.84 MG/DL (0.40-0.90); GLUCOSE 136 MG/DL (70-104); POTASSIUM 3.4 MMOL/L (3.5-5.1); SODIUM 139 MMOL/L (135-145); TOTAL CARBON DIOXIDE 29.5 MMOL/L (24-32); eGFR 28 ML/MIN
[2018-04-06 03:41] LABS: BLOOD UREA NITROGEN 20 MG/DL (7-18); BUN/CREATININE RATIO 10.9 (6.6-38.0)
[2018-04-06 05:40] LABS: HEMATOCRIT 25.4 % (35.0-45.0); HEMOGLOBIN 8.5 g/dl (12.0-16.0); MEAN CORPUSCULAR HEMOGLOBIN 29.1 PG (27.0-31.0); MEAN CORPUSCULAR HGB CONC 33.7 % (33.0-36.5); MEAN CORPUSCULAR VOLUME 86.4 FL (78-98); MEAN PLATELET VOLUME 8.1 FL (7.4-10.4); PLATELET COUNT 785 X10'3 (140-440); RED BLOOD COUNT 2.94 X10'6 (4.20-5.60); RED CELL DISTRIBUTION WIDTH 16.5 % (11.5-14.5); WHITE BLOOD COUNT 14.6 X10'3 (4.5-11.0)
[2018-04-06] MEDS: amiodarone/D5 360MG/200ML BAG 200 ML IV SCH ×4 (06:45→21:32)
[2018-04-06 07:34] LABS: ANISOCYTOSIS 1+; NUCLEATED RED BLOOD CELLS 1 /100WBC (0-0); PLATELET ESTIMATE INCREASED; TOTAL CELLS COUNTED 100
[2018-04-06 07:35] LABS: POIKILOCYTOSIS FEW; POLYCHROMASIA 1+; STOMATOCYTES 1+
[2018-04-06] MEDS: fluconazole-Diflucan 200mg/NS 100 ML IV SCH (07:39)
[2018-04-06] MEDS: famotidine/PF 10 mg/ml inj IV SCH ×2 (07:42→21:37)
[2018-04-06] MEDS: lactobacillus rhamnosus 10,000 MMU CELLS/CAPSULE PO SCH ×2 (07:47→21:31)
[2018-04-06] MEDS: heparin, porcine 5000 units/ml vial SQ SCH ×2 (07:47→21:32)
[2018-04-06] MEDS: K and/or MAG REPLACEMENT MC SCH (08:00)
[2018-04-06] MEDS: sodium ferric gluc complex inj 125 MG in normal saline 100ml IV soln 100 ML IV SCH (08:00)
[2018-04-06] MEDS ORDERED: vancomycin inj 1,250 MG in normal saline 250ml IV soln 250 ML IV PRN (08:00)
[2018-04-06] MEDS ORDERED: amiodarone/D5 360MG/200ML BAG 200 ML IV SCH (11:24)
[2018-04-06] MEDS: ondansetron/PF 4mg/2ml inj IV PRN (12:21)
[2018-04-06] MEDS ORDERED: heparin 1,000unit/ml 10ml vial 10 ML IV ONE ×2 (16:11→16:17)
[2018-04-06] MEDS ORDERED: heparin 1,000 units/ml 10ml inj HE ONE ×2 (16:25→19:00)
[2018-04-06] MEDS: insulin glargine (Lantus) pen - multi-dose SQ SCH (21:00)
[2018-04-06] MEDS: cefepime inj. 0.5 GM in normal saline 100ml IV soln 100 ML IV SCH (21:31)
[2018-04-07] VITALS (24 sets, daily range): BP systolic 100–163; BP diastolic 53–94
[2018-04-07] MEDS: HYDROmorphone/NS 1 mg/ml CADD 50 ML IV SCH ×12 (01:00→23:00)
[2018-04-07] MEDS: dexmedetomidin/NS 400mcg/100ml 100 ML IV SCH ×2 (02:17→17:37)
[2018-04-07] MEDS: ipratropium/albuterol 3ml nebule NEB SCH ×4 (02:33→21:08)
[2018-04-07] MEDS: VANCOMYCIN LEVEL IV SCH (03:00)
[2018-04-07 03:23] LABS: BASOPHILS % (AUTO) 0.2 % (0-1); EOSINOPHILS % (AUTO) 0.2 % (0-6); HEMATOCRIT 28.4 % (35.0-45.0); HEMOGLOBIN 9.3 g/dl (12.0-16.0); LYMPHOCYTES # (AUTO) 0.4 X10'3 (1.1-4.8); LYMPHOCYTES % (AUTO) 1.9 % (21-51); MEAN CORPUSCULAR HGB CONC 32.8 % (33.0-36.5); MEAN CORPUSCULAR VOLUME 88.5 FL (78-98); MEAN PLATELET VOLUME 7.5 FL (7.4-10.4); MONOCYTES # (AUTO) 1.6 X10'3 (0-0.9); MONOCYTES % (AUTO) 7.2 % (2-12); NEUTROPHILS # (AUTO) 19.5 X10'3 (1.8-7.7); NEUTROPHILS % (AUTO) 90.5 % (42-75); PLATELET COUNT 795 X10'3 (140-440); RED BLOOD COUNT 3.21 X10'6 (4.20-5.60); RED CELL DISTRIBUTION WIDTH 16.7 % (11.5-14.5); WHITE BLOOD COUNT 21.5 X10'3 (4.5-11.0)
[2018-04-07 03:40] LABS: ALANINE AMINOTRANSFERASE 19 U/L (12-78); ALBUMIN 1.4 G/DL (3.4-5.0); ALBUMIN/GLOBULIN RATIO 0.3 (1.1-1.5); ALKALINE PHOSPHATASE 165 IU/L (46-116); ANION GAP 7 (8-16); ASPARTATE AMINO TRANSFERASE 21 U/L (10-37); BILIRUBIN,TOTAL 0.2 MG/DL (0.1-1.0); BLOOD UREA NITROGEN 18 MG/DL (7-18); BUN/CREATININE RATIO 11.3 (6.6-38.0); CALCIUM 8.4 MG/DL (8.5-10.1); CHLORIDE 100 MMOL/L (99-107); GLUCOSE 129 MG/DL (70-104); MAGNESIUM 1.8 MG/DL (1.5-2.4); PHOSPHORUS 1.5 MG/DL (2.3-4.5); POTASSIUM 4.1 MMOL/L (3.5-5.1); PREALBUMIN 13.6 MG/DL (19-36); SODIUM 138 MMOL/L (135-145); TOTAL CARBON DIOXIDE 31.1 MMOL/L (24-32); TRIGLYCERIDES 153 MG/DL (20-135); VANCOMYCIN,RANDOM 11.7 UG/ML; eGFR 33 ML/MIN
[2018-04-07 04:10] LABS: ANISOCYTOSIS 1+; NUCLEATED RED BLOOD CELLS 1 /100WBC (0-0); PLATELET ESTIMATE INCREASED; TOTAL CELLS COUNTED 100
[2018-04-07 04:11] LABS: POLYCHROMASIA 1+
[2018-04-07] MEDS: amiodarone/D5 360MG/200ML BAG 200 ML IV SCH ×4 (05:50→20:39)
[2018-04-07] MEDS ORDERED: vancomycin inj 1,250 MG in normal saline 250ml IV soln 250 ML IV ONE (07:00)
[2018-04-07] MEDS: LORazepam 2 mg/ml vial IV PRN ×2 (07:52→16:16)
[2018-04-07] MEDS: famotidine/PF 10 mg/ml inj IV SCH ×2 (07:53→20:30)
[2018-04-07] MEDS: heparin, porcine 5000 units/ml vial SQ SCH ×2 (07:53→20:30)
[2018-04-07] MEDS: fluconazole-Diflucan 200mg/NS 100 ML IV SCH (07:55)
[2018-04-07] MEDS: K and/or MAG REPLACEMENT MC SCH (08:00)
[2018-04-07] MEDS: lactobacillus rhamnosus 10,000 MMU CELLS/CAPSULE PO SCH ×2 (08:14→20:30)
[2018-04-07] MEDS: meropenem inj 500 MG in normal saline 100ml IV soln 100 ML IV SCH (09:38)
[2018-04-07] MEDS: insulin glargine (Lantus) pen - multi-dose SQ SCH (21:00)
[2018-04-08] VITALS (24 sets, daily range): BP systolic 97–166; BP diastolic 47–81
[2018-04-08] MEDS: dexmedetomidin/NS 400mcg/100ml 100 ML IV SCH ×3 (00:49→20:19)
[2018-04-08] MEDS: HYDROmorphone/NS 1 mg/ml CADD 50 ML IV SCH ×12 (01:00→23:00)
[2018-04-08] MEDS: LORazepam 2 mg/ml vial IV PRN ×2 (01:08→07:44)
[2018-04-08] MEDS: VANCOMYCIN LEVEL IV SCH (03:00)
[2018-04-08] MEDS: ipratropium/albuterol 3ml nebule NEB SCH ×4 (03:19→20:01)
[2018-04-08 05:20] LABS: BASOPHILS # (AUTO) 0.1 X10'3 (0-0.2); BASOPHILS % (AUTO) 0.4 % (0-1); EOSINOPHILS # (AUTO) 0.3 X10'3 (0-0.9); EOSINOPHILS % (AUTO) 1.4 % (0-6); HEMATOCRIT 25.5 % (35.0-45.0); HEMOGLOBIN 8.2 g/dl (12.0-16.0); LYMPHOCYTES # (AUTO) 0.6 X10'3 (1.1-4.8); LYMPHOCYTES % (AUTO) 2.8 % (21-51); MEAN CORPUSCULAR HEMOGLOBIN 28.7 PG (27.0-31.0); MEAN CORPUSCULAR HGB CONC 32.2 % (33.0-36.5); MEAN CORPUSCULAR VOLUME 89.3 FL (78-98); MEAN PLATELET VOLUME 7.7 FL (7.4-10.4); MONOCYTES # (AUTO) 1.8 X10'3 (0-0.9); MONOCYTES % (AUTO) 8.4 % (2-12); NEUTROPHILS # (AUTO) 18.4 X10'3 (1.8-7.7); PLATELET COUNT 705 X10'3 (140-440); RED BLOOD COUNT 2.85 X10'6 (4.20-5.60); RED CELL DISTRIBUTION WIDTH 17.6 % (11.5-14.5); WHITE BLOOD COUNT 21.1 X10'3 (4.5-11.0)
[2018-04-08 05:42] LABS: ALANINE AMINOTRANSFERASE 16 U/L (12-78); ALBUMIN 1.3 G/DL (3.4-5.0); ALBUMIN/GLOBULIN RATIO 0.3 (1.1-1.5); ALKALINE PHOSPHATASE 159 IU/L (46-116); ANION GAP 7 (8-16); ASPARTATE AMINO TRANSFERASE 19 U/L (10-37); BILIRUBIN,TOTAL 0.2 MG/DL (0.1-1.0); BLOOD UREA NITROGEN 36 MG/DL (7-18); BUN/CREATININE RATIO 15.3 (6.6-38.0); CALCIUM 8.4 MG/DL (8.5-10.1); CHLORIDE 101 MMOL/L (99-107); CREATININE 2.36 MG/DL (0.40-0.90); GLUCOSE 138 MG/DL (70-104); POTASSIUM 4.1 MMOL/L (3.5-5.1); SODIUM 137 MMOL/L (135-145); TOTAL CARBON DIOXIDE 28.6 MMOL/L (24-32); TOTAL PROTEIN 6.5 G/DL (6.4-8.2); VANCOMYCIN,RANDOM 25.2 UG/ML; eGFR 21 ML/MIN
[2018-04-08] MEDS: amiodarone/D5 360MG/200ML BAG 200 ML IV SCH ×2 (06:06→07:42)
[2018-04-08 06:51] LABS: ANISOCYTOSIS 2+; PLATELET ESTIMATE INCREASED; POLYCHROMASIA 1+; TOTAL CELLS COUNTED 100
[2018-04-08] MEDS: heparin, porcine 5000 units/ml vial SQ SCH ×2 (07:44→20:20)
[2018-04-08] MEDS: lactobacillus rhamnosus 10,000 MMU CELLS/CAPSULE PO SCH ×2 (07:44→20:19)
[2018-04-08] MEDS: famotidine/PF 10 mg/ml inj IV SCH ×2 (07:44→20:20)
[2018-04-08] MEDS ORDERED: epoetin 20,000 units/ml inj IV ONE (08:00)
[2018-04-08] MEDS ORDERED: heparin 1,000unit/ml 10ml vial 10 ML IV ONE (08:00)
[2018-04-08] MEDS ORDERED: heparin 1,000 units/ml 10ml inj HE ONE (08:00)
[2018-04-08] MEDS: fluconazole-Diflucan 200mg/NS 100 ML IV SCH ×2 (08:00→14:05)
[2018-04-08] MEDS: heparin 1,000 units/ml 10ml inj HE ONE ×2 (11:00→13:16)
[2018-04-08] MEDS: meropenem inj 500 MG in normal saline 100ml IV soln 100 ML IV SCH (14:05)
[2018-04-08] MEDS: amiodarone 200mg tablet PO SCH (20:19)
[2018-04-08] MEDS: insulin glargine (Lantus) pen - multi-dose SQ SCH (21:00)
[2018-04-09] VITALS (25 sets, daily range): BP systolic 105–157; BP diastolic 51–96
[2018-04-09] MEDS: HYDROmorphone/NS 1 mg/ml CADD 50 ML IV SCH ×8 (01:00→15:00)
[2018-04-09] MEDS: dexmedetomidin/NS 400mcg/100ml 100 ML IV SCH ×2 (02:05→07:56)
[2018-04-09] MEDS: ipratropium/albuterol 3ml nebule NEB SCH ×5 (03:09→23:08)
[2018-04-09 03:46] LABS: ABG BASE EXCESS 2.5 mmol/L (-2.0-3.0); ABG HCO3 31.3 mmol/L (22.0-26.0); ABG OXYGEN SATURATION 98.8 % (95-98); ABG PCO2 (T) 78.3 mmHg (32.0-45.0); ABG PH (T) 7.222 (7.350-7.450); ABG PO2 (T) 148.1 mmHg (83-108); ALLEN'S TEST Positive; FCOHb 0.1 % (0.5-1.5); FMetHb 0.1 % (0.3-1.12); FO2Hb 98.6 % (94-100); MINUTE VOLUME 15 L/min; PATIENT TEMPERATURE 37.4; RESPIRATORY RATE 15 b/min; RESPIRATORY RATE (OBSERVED) 20 b/min
[2018-04-09 05:18] LABS: BASOPHILS # (AUTO) 0.2 X10'3 (0-0.2); BASOPHILS % (AUTO) 0.9 % (0-1); EOSINOPHILS # (AUTO) 0.1 X10'3 (0-0.9); EOSINOPHILS % (AUTO) 0.3 % (0-6); HEMATOCRIT 28.7 % (35.0-45.0); HEMOGLOBIN 9.5 g/dl (12.0-16.0); LYMPHOCYTES # (AUTO) 0.4 X10'3 (1.1-4.8); LYMPHOCYTES % (AUTO) 2.2 % (21-51); MEAN CORPUSCULAR HEMOGLOBIN 29.6 PG (27.0-31.0); MEAN CORPUSCULAR VOLUME 89.7 FL (78-98); MEAN PLATELET VOLUME 7.7 FL (7.4-10.4); MONOCYTES # (AUTO) 1.6 X10'3 (0-0.9); NEUTROPHILS # (AUTO) 17.7 X10'3 (1.8-7.7); NEUTROPHILS % (AUTO) 88.6 % (42-75); PLATELET COUNT 764 X10'3 (140-440)
[2018-04-09 05:35] LABS: ALANINE AMINOTRANSFERASE 21 U/L (12-78); ALBUMIN 1.5 G/DL (3.4-5.0); ALBUMIN/GLOBULIN RATIO 0.3 (1.1-1.5); ALKALINE PHOSPHATASE 191 IU/L (46-116); ANION GAP 4 (8-16); ASPARTATE AMINO TRANSFERASE 27 U/L (10-37); BILIRUBIN,TOTAL 0.2 MG/DL (0.1-1.0); BLOOD UREA NITROGEN 26 MG/DL (7-18); BUN/CREATININE RATIO 14.8 (6.6-38.0); CALCIUM 8.7 MG/DL (8.5-10.1); CHLORIDE 101 MMOL/L (99-107); CREATININE 1.76 MG/DL (0.40-0.90); GLUCOSE 151 MG/DL (70-104); POTASSIUM 4.4 MMOL/L (3.5-5.1); SODIUM 138 MMOL/L (135-145); TOTAL CARBON DIOXIDE 32.6 MMOL/L (24-32); TOTAL PROTEIN 7.4 G/DL (6.4-8.2); eGFR 29 ML/MIN
[2018-04-09 06:51] LABS: TOTAL CELLS COUNTED 100
[2018-04-09 06:52] LABS: ANISOCYTOSIS 1+; PLATELET ESTIMATE INCREASED; POLYCHROMASIA 1+
[2018-04-09 06:53] LABS: NUCLEATED RED BLOOD CELLS 1 /100WBC (0-0)
[2018-04-09] MEDS: lactobacillus rhamnosus 10,000 MMU CELLS/CAPSULE PO SCH ×2 (07:56→20:20)
[2018-04-09] MEDS: amiodarone 200mg tablet PO SCH ×2 (07:56→20:35)
[2018-04-09] MEDS: famotidine/PF 10 mg/ml inj IV SCH ×2 (07:56→20:20)
[2018-04-09] MEDS: fluconazole-Diflucan 200mg/NS 100 ML IV SCH (07:57)
[2018-04-09] MEDS: meropenem inj 500 MG in normal saline 100ml IV soln 100 ML IV SCH (07:57)
[2018-04-09] MEDS: LORazepam 2 mg/ml vial IV PRN ×2 (08:03→15:41)
[2018-04-09] MEDS: heparin, porcine 5000 units/ml vial SQ SCH ×2 (08:09→20:20)
[2018-04-09] MEDS ORDERED: flumazenil 0.1 mg/ml inj. IV ONE (08:29)
[2018-04-09] MEDS: clonazePAM 0.5mg tablet PO SCH (15:41)
[2018-04-09] MEDS ORDERED: Duosol 4k/NO Calcium 5,000 ML HE SCH ×2 (16:56→17:15)
[2018-04-09] MEDS ORDERED: potassium Cl 20mEq/100mL bag 100 ML IV PRN (17:00)
[2018-04-09] MEDS ORDERED: calcium chloride inj. 1,000 MG in normal saline 100ml IV soln 100 ML IV PRN (17:00)
[2018-04-09] MEDS ORDERED: sodium phosphate inj. 30 MMOL in normal saline 250ml IV soln 250 ML IV PRN ×4 (17:00)
[2018-04-09] MEDS ORDERED: magnesium 4gm in 100ml NS 100 ML IV PRN (17:00)
[2018-04-09 17:20] LABS: ABG BASE EXCESS 0.3 mmol/L (-2.0-3.0); ABG HCO3 29.8 mmol/L (22.0-26.0); ABG OXYGEN SATURATION 84.8 % (95-98); ABG PCO2 (T) 80.8 mmHg (32.0-45.0); ABG PH (T) 7.185 (7.350-7.450); ABG PO2 (T) 53.2 mmHg (83-108); ALLEN'S TEST Positive; FCOHb 0.4 % (0.5-1.5); FMetHb 0.2 % (0.3-1.12); FO2Hb 84.3 % (94-100); TOTAL HEMOGLOBIN 9.7 G/dl (12.0-16.0)
[2018-04-09] MEDS ORDERED: fentaNYL/PF 50MCG/1 ML 2ML syringe IV PRN (17:40)
[2018-04-09] MEDS ORDERED: ipratropium/albuterol 3ml nebule NEB PRN (17:40)
[2018-04-09] MEDS ORDERED: midazolam 2 mg/2 ml injection IV ONE (17:40)
[2018-04-09] MEDS: midazolam 100mg in NS 100ml 100 ML IV PRN (18:19)
[2018-04-09] MEDS: FENTANYL-0.9 % NACL/PF 100 ML IV PRN (18:19)
[2018-04-09] MEDS: bicarb dialysis sol NO calcium 5,000 ML HE SCH ×3 (19:09→19:11)
[2018-04-09] MEDS: calcium chloride inj. 1,000 MG in normal saline 100ml IV soln 100 ML IV PRN ×2 (19:12→23:04)
[2018-04-09] MEDS: citrate dextrose 1000ml IV sol 1,000 ML IV PRN ×2 (19:12→23:05)
[2018-04-09] MEDS: insulin glargine (Lantus) pen - multi-dose SQ SCH (20:21)
[2018-04-09 21:06] LABS: ABG BASE EXCESS -0.1 mmol/L (-2.0-3.0); ABG HCO3 27.7 mmol/L (22.0-26.0); ABG OXYGEN SATURATION 98.7 % (95-98); ABG PCO2 (T) 62.6 mmHg (32.0-45.0); ABG PH (T) 7.261 (7.350-7.450); ABG PO2 (T) 138.7 mmHg (83-108); ALLEN'S TEST Positive; FCOHb 0.2 % (0.5-1.5); FMetHb 0.3 % (0.3-1.12); FO2Hb 98.2 % (94-100); MINUTE VOLUME 9 L/min; PATIENT TEMPERATURE 36.5; PEEP 5 cm H2O; RESPIRATORY RATE 20 b/min; RESPIRATORY RATE (OBSERVED) 23 b/min; TIDAL VOLUME 350 mL; TOTAL HEMOGLOBIN 9.2 G/dl (12.0-16.0)
[2018-04-09 21:44] LABS: HEMATOCRIT 26.5 % (35.0-45.0); HEMOGLOBIN 8.9 g/dl (12.0-16.0); MEAN CORPUSCULAR HEMOGLOBIN 29.5 PG (27.0-31.0); MEAN CORPUSCULAR HGB CONC 33.4 % (33.0-36.5); MEAN CORPUSCULAR VOLUME 88.6 FL (78-98); PLATELET COUNT 612 X10'3 (140-440); RED BLOOD COUNT 2.99 X10'6 (4.20-5.60); RED CELL DISTRIBUTION WIDTH 17.4 % (11.5-14.5); WHITE BLOOD COUNT 20.2 X10'3 (4.5-11.0)
[2018-04-09 21:53] LABS: ALBUMIN 1.4 G/DL (3.4-5.0); ANION GAP 8 (8-16); BLOOD UREA NITROGEN 39 MG/DL (7-18); CHLORIDE 101 MMOL/L (99-107); CREATININE 2.17 MG/DL (0.40-0.90); GLUCOSE 130 MG/DL (70-104); MAGNESIUM 1.9 MG/DL (1.5-2.4); PHOSPHORUS 3.1 MG/DL (2.3-4.5); POTASSIUM 4.7 MMOL/L (3.5-5.1); SODIUM 138 MMOL/L (135-145); TOTAL CARBON DIOXIDE 28.9 MMOL/L (24-32); eGFR 23 ML/MIN
[2018-04-09 22:41] LABS: ANISOCYTOSIS 1+; PLATELET ESTIMATE INCREASED; POLYCHROMASIA 1+; TOTAL CELLS COUNTED 100
[2018-04-09 23:26] LABS: BASOPHILS # (AUTO) 0.1 X10'3 (0-0.2); BASOPHILS % (AUTO) 0.3 % (0-1); EOSINOPHILS # (AUTO) 0.2 X10'3 (0-0.9); EOSINOPHILS % (AUTO) 0.9 % (0-6); HEMOGLOBIN 8.4 g/dl (12.0-16.0); LYMPHOCYTES # (AUTO) 0.7 X10'3 (1.1-4.8); LYMPHOCYTES % (AUTO) 3.4 % (21-51); MEAN CORPUSCULAR HEMOGLOBIN 29.8 PG (27.0-31.0); MEAN CORPUSCULAR HGB CONC 33.6 % (33.0-36.5); MEAN CORPUSCULAR VOLUME 88.7 FL (78-98); MEAN PLATELET VOLUME 7.1 FL (7.4-10.4); MONOCYTES % (AUTO) 9.8 % (2-12); NEUTROPHILS # (AUTO) 17.1 X10'3 (1.8-7.7); NEUTROPHILS % (AUTO) 85.6 % (42-75); PLATELET COUNT 583 X10'3 (140-440); RED BLOOD COUNT 2.82 X10'6 (4.20-5.60); RED CELL DISTRIBUTION WIDTH 17.1 % (11.5-14.5); WHITE BLOOD COUNT 20.1 X10'3 (4.5-11.0)
[2018-04-09 23:28] LABS: ALBUMIN 1.4 G/DL (3.4-5.0); ANION GAP 10 (8-16); BLOOD UREA NITROGEN 38 MG/DL (7-18); BUN/CREATININE RATIO 18.3 (6.6-38.0); CHLORIDE 101 MMOL/L (99-107); CREATININE 2.08 MG/DL (0.40-0.90); GLUCOSE 124 MG/DL (70-104); MAGNESIUM 1.8 MG/DL (1.5-2.4); PHOSPHORUS 2.7 MG/DL (2.3-4.5); POTASSIUM 4.4 MMOL/L (3.5-5.1); SODIUM 138 MMOL/L (135-145); TOTAL CARBON DIOXIDE 27.5 MMOL/L (24-32); eGFR 24 ML/MIN
[2018-04-10] VITALS (26 sets, daily range): BP systolic 82–125; BP diastolic 44–81
[2018-04-10 01:29] LABS: ALBUMIN 1.3 G/DL (3.4-5.0); ANION GAP 9 (8-16); BLOOD UREA NITROGEN 31 MG/DL (7-18); BUN/CREATININE RATIO 17.3 (6.6-38.0); CALCIUM 7.3 MG/DL (8.5-10.1); CHLORIDE 100 MMOL/L (99-107); CREATININE 1.79 MG/DL (0.40-0.90); GLUCOSE 153 MG/DL (70-104); MAGNESIUM 1.7 MG/DL (1.5-2.4); PHOSPHORUS 1.8 MG/DL (2.3-4.5); POTASSIUM 3.7 MMOL/L (3.5-5.1); PREALBUMIN 14.4 MG/DL (19-36); SODIUM 138 MMOL/L (135-145); TRIGLYCERIDES 255 MG/DL (20-135); eGFR 29 ML/MIN
[2018-04-10] MEDS: bicarb dialysis sol NO calcium 5,000 ML HE SCH ×11 (01:55→22:43)
[2018-04-10 02:03] LABS: EOSINOPHILS # (AUTO) 0.3 X10'3 (0-0.9); LYMPHOCYTES # (AUTO) 0.5 X10'3 (1.1-4.8); RED CELL DISTRIBUTION WIDTH 17.4 % (11.5-14.5)
[2018-04-10 02:05] LABS: BASOPHILS % (AUTO) 0.2 % (0-1); EOSINOPHILS % (AUTO) 1.7 % (0-6); HEMATOCRIT 24.1 % (35.0-45.0); LYMPHOCYTES % (AUTO) 3.3 % (21-51); MEAN CORPUSCULAR HEMOGLOBIN 29.7 PG (27.0-31.0); MEAN CORPUSCULAR HGB CONC 33.1 % (33.0-36.5); MEAN CORPUSCULAR VOLUME 89.9 FL (78-98); MEAN PLATELET VOLUME 7.1 FL (7.4-10.4); MONOCYTES # (AUTO) 1.2 X10'3 (0-0.9); MONOCYTES % (AUTO) 7.8 % (2-12); NEUTROPHILS # (AUTO) 13.7 X10'3 (1.8-7.7); PLATELET COUNT 613 X10'3 (140-440); RED BLOOD COUNT 2.69 X10'6 (4.20-5.60); WHITE BLOOD COUNT 15.7 X10'3 (4.5-11.0)
[2018-04-10 02:37] LABS: ANISOCYTOSIS 1+; NUCLEATED RED BLOOD CELLS 2 /100WBC (0-0); PLATELET ESTIMATE INCREASED; POLYCHROMASIA FEW; TOTAL CELLS COUNTED 100
[2018-04-10] MEDS: citrate dextrose 1000ml IV sol 1,000 ML IV PRN ×7 (02:57→22:10)
[2018-04-10] MEDS: calcium chloride inj. 1,000 MG in normal saline 100ml IV soln 100 ML IV PRN ×2 (03:14→05:30)
[2018-04-10] MEDS: ipratropium/albuterol 3ml nebule NEB SCH ×6 (03:25→22:34)
[2018-04-10 03:41] LABS: ABG BASE EXCESS 2.9 mmol/L (-2.0-3.0); ABG HCO3 29.5 mmol/L (22.0-26.0); ABG OXYGEN SATURATION 97.6 % (95-98); ABG PCO2 (T) 53.5 mmHg (32.0-45.0); ABG PH (T) 7.353 (7.350-7.450); ABG PO2 (T) 92.4 mmHg (83-108); ALLEN'S TEST Positive; FCOHb 0.2 % (0.5-1.5); FMetHb 0.1 % (0.3-1.12); FO2Hb 97.3 % (94-100); PATIENT TEMPERATURE 35.6; PEEP 5 cm H2O; RESPIRATORY RATE 22 b/min; RESPIRATORY RATE (OBSERVED) 28 b/min; TIDAL VOLUME 350 mL; TOTAL HEMOGLOBIN 9.5 G/dl (12.0-16.0)
[2018-04-10] MEDS: CALCIUM CHLORIDE IV PRN ×2 (03:45→15:33)
[2018-04-10] MEDS: NORMAL SALINE IV PRN ×2 (03:45→15:33)
[2018-04-10 05:00] LABS: BASOPHILS % (AUTO) 0.3 % (0-1); EOSINOPHILS # (AUTO) 0.5 X10'3 (0-0.9); EOSINOPHILS % (AUTO) 3.4 % (0-6); HEMATOCRIT 23.6 % (35.0-45.0); HEMOGLOBIN 7.8 g/dl (12.0-16.0); LYMPHOCYTES # (AUTO) 0.5 X10'3 (1.1-4.8); LYMPHOCYTES % (AUTO) 3.7 % (21-51); MEAN CORPUSCULAR HEMOGLOBIN 29.1 PG (27.0-31.0); MEAN CORPUSCULAR HGB CONC 33.1 % (33.0-36.5); MEAN CORPUSCULAR VOLUME 87.9 FL (78-98); MEAN PLATELET VOLUME 7.2 FL (7.4-10.4); MONOCYTES # (AUTO) 1.1 X10'3 (0-0.9); MONOCYTES % (AUTO) 7.9 % (2-12); NEUTROPHILS # (AUTO) 12.4 X10'3 (1.8-7.7); NEUTROPHILS % (AUTO) 84.7 % (42-75); PLATELET COUNT 593 X10'3 (140-440); RED BLOOD COUNT 2.68 X10'6 (4.20-5.60); RED CELL DISTRIBUTION WIDTH 17.1 % (11.5-14.5); WHITE BLOOD COUNT 14.5 X10'3 (4.5-11.0)
[2018-04-10 05:12] LABS: ALANINE AMINOTRANSFERASE 20 U/L (12-78); ALBUMIN 1.3 G/DL (3.4-5.0); ALBUMIN/GLOBULIN RATIO 0.3 (1.1-1.5); ALKALINE PHOSPHATASE 154 IU/L (46-116); ANION GAP 9 (8-16); ASPARTATE AMINO TRANSFERASE 23 U/L (10-37); BILIRUBIN,TOTAL 0.1 MG/DL (0.1-1.0); BLOOD UREA NITROGEN 23 MG/DL (7-18); BUN/CREATININE RATIO 17.7 (6.6-38.0); CALCIUM 6.4 MG/DL (8.5-10.1); CHLORIDE 99 MMOL/L (99-107); GLUCOSE 152 MG/DL (70-104); MAGNESIUM 1.7 MG/DL (1.5-2.4); POTASSIUM 3.5 MMOL/L (3.5-5.1); SODIUM 137 MMOL/L (135-145); TOTAL CARBON DIOXIDE 29.4 MMOL/L (24-32); eGFR 42 ML/MIN
[2018-04-10 06:01] LABS: PHOSPHORUS 1.2 MG/DL (2.3-4.5)
[2018-04-10] MEDS: clonazePAM 0.5mg tablet PO SCH (06:49)
[2018-04-10] MEDS: amiodarone 200mg tablet PO SCH ×2 (07:11→19:34)
[2018-04-10] MEDS: meropenem inj 500 MG in normal saline 100ml IV soln 100 ML IV SCH (07:11)
[2018-04-10] MEDS: famotidine/PF 10 mg/ml inj IV SCH ×2 (07:11→19:33)
[2018-04-10] MEDS: lactobacillus rhamnosus 10,000 MMU CELLS/CAPSULE PO SCH ×2 (07:11→19:33)
[2018-04-10] MEDS: FENTANYL-0.9 % NACL/PF 100 ML IV PRN ×2 (07:12→18:32)
[2018-04-10] MEDS ORDERED: heparin 1,000 units/ml 10ml inj HE ONE ×2 (08:00)
[2018-04-10] MEDS ORDERED: normal saline 1000ml 250 ML IV PRN (08:00)
[2018-04-10] MEDS ORDERED: epoetin 20,000 units/ml inj IV ONE (08:00)
[2018-04-10] MEDS ORDERED: heparin 1,000unit/ml 10ml vial 10 ML IV ONE (08:00)
[2018-04-10] MEDS: heparin, porcine 5000 units/ml vial SQ SCH ×2 (08:19→19:34)
[2018-04-10 08:54] LABS: ALBUMIN 1.3 G/DL (3.4-5.0); ANION GAP 10 (8-16); BLOOD UREA NITROGEN 20 MG/DL (7-18); BUN/CREATININE RATIO 17.4 (6.6-38.0); CALCIUM 7.6 MG/DL (8.5-10.1); CHLORIDE 98 MMOL/L (99-107); CREATININE 1.15 MG/DL (0.40-0.90); GLUCOSE 166 MG/DL (70-104); MAGNESIUM 1.7 MG/DL (1.5-2.4); PHOSPHORUS 1.7 MG/DL (2.3-4.5); POTASSIUM 3.5 MMOL/L (3.5-5.1); SODIUM 137 MMOL/L (135-145); eGFR 48 ML/MIN
[2018-04-10] MEDS ORDERED: etomidate 2mg/ml inj. ONE (09:00)
[2018-04-10] MEDS ORDERED: 0.9 % SODIUM CHLORIDE 10 ML VIAL ONE (09:00)
[2018-04-10] MEDS: midazolam 100mg in NS 100ml 100 ML IV PRN (09:04)
[2018-04-10] MEDS ORDERED: tPA-cathflo 2 MG/2 ml IV flush IVF ONE (12:10)
[2018-04-10 12:43] LABS: BASOPHILS % (AUTO) 0.2 % (0-1); EOSINOPHILS # (AUTO) 0.5 X10'3 (0-0.9); EOSINOPHILS % (AUTO) 3.4 % (0-6); HEMATOCRIT 24.3 % (35.0-45.0); HEMOGLOBIN 8.1 g/dl (12.0-16.0); LYMPHOCYTES # (AUTO) 0.6 X10'3 (1.1-4.8); LYMPHOCYTES % (AUTO) 4.3 % (21-51); MEAN CORPUSCULAR HEMOGLOBIN 29.5 PG (27.0-31.0); MEAN CORPUSCULAR HGB CONC 33.5 % (33.0-36.5); MEAN PLATELET VOLUME 7.2 FL (7.4-10.4); MONOCYTES # (AUTO) 1.1 X10'3 (0-0.9); MONOCYTES % (AUTO) 7.3 % (2-12); NEUTROPHILS # (AUTO) 12.6 X10'3 (1.8-7.7); NEUTROPHILS % (AUTO) 84.8 % (42-75); PLATELET COUNT 605 X10'3 (140-440); RED BLOOD COUNT 2.76 X10'6 (4.20-5.60); WHITE BLOOD COUNT 14.8 X10'3 (4.5-11.0)
[2018-04-10 12:49] LABS: ALBUMIN 1.3 G/DL (3.4-5.0); ANION GAP 11 (8-16); BLOOD UREA NITROGEN 18 MG/DL (7-18); CALCIUM 7.7 MG/DL (8.5-10.1); CHLORIDE 98 MMOL/L (99-107); GLUCOSE 174 MG/DL (70-104); MAGNESIUM 1.6 MG/DL (1.5-2.4); PHOSPHORUS 2.5 MG/DL (2.3-4.5); POTASSIUM 3.6 MMOL/L (3.5-5.1); SODIUM 138 MMOL/L (135-145); TOTAL CARBON DIOXIDE 28.9 MMOL/L (24-32); eGFR 56 ML/MIN
[2018-04-10 16:24] LABS: ALBUMIN 1.2 G/DL (3.4-5.0); ANION GAP 7 (8-16); BLOOD UREA NITROGEN 18 MG/DL (7-18); BUN/CREATININE RATIO 16.7 (6.6-38.0); CALCIUM 9.3 MG/DL (8.5-10.1); CHLORIDE 100 MMOL/L (99-107); CREATININE 1.08 MG/DL (0.40-0.90); GLUCOSE 152 MG/DL (70-104); MAGNESIUM 1.6 MG/DL (1.5-2.4); PHOSPHORUS 2.1 MG/DL (2.3-4.5); POTASSIUM 3.5 MMOL/L (3.5-5.1); SODIUM 137 MMOL/L (135-145); TOTAL CARBON DIOXIDE 29.7 MMOL/L (24-32); eGFR 51 ML/MIN
[2018-04-10 16:42] LABS: BASOPHILS % (AUTO) 0.3 % (0-1); EOSINOPHILS # (AUTO) 0.5 X10'3 (0-0.9); EOSINOPHILS % (AUTO) 3.2 % (0-6); HEMATOCRIT 24.3 % (35.0-45.0); LYMPHOCYTES # (AUTO) 0.3 X10'3 (1.1-4.8); LYMPHOCYTES % (AUTO) 2.2 % (21-51); MEAN CORPUSCULAR HGB CONC 32.9 % (33.0-36.5); MEAN CORPUSCULAR VOLUME 88.2 FL (78-98); MEAN PLATELET VOLUME 7.3 FL (7.4-10.4); MONOCYTES % (AUTO) 6.2 % (2-12); NEUTROPHILS # (AUTO) 13.6 X10'3 (1.8-7.7); NEUTROPHILS % (AUTO) 88.1 % (42-75); PLATELET COUNT 548 X10'3 (140-440); RED BLOOD COUNT 2.75 X10'6 (4.20-5.60); RED CELL DISTRIBUTION WIDTH 17.3 % (11.5-14.5); WHITE BLOOD COUNT 15.4 X10'3 (4.5-11.0)
[2018-04-10 17:16] LABS: NUCLEATED RED BLOOD CELLS 4 /100WBC (0-0); TOTAL CELLS COUNTED 100
[2018-04-10 17:17] LABS: ANISOCYTOSIS 1+; PLATELET ESTIMATE INCREASED
[2018-04-10 17:20] LABS: POLYCHROMASIA FEW; STOMATOCYTES 2+
[2018-04-10] MEDS: mineral oil/petrolatum ophthal oint EACHEYE SCH (19:34)
[2018-04-10 20:15] LABS: BASOPHILS % (AUTO) 0.2 % (0-1); EOSINOPHILS # (AUTO) 0.6 X10'3 (0-0.9); EOSINOPHILS % (AUTO) 3.7 % (0-6); HEMATOCRIT 24.5 % (35.0-45.0); LYMPHOCYTES # (AUTO) 0.4 X10'3 (1.1-4.8); LYMPHOCYTES % (AUTO) 2.7 % (21-51); MEAN CORPUSCULAR HEMOGLOBIN 28.8 PG (27.0-31.0); MEAN CORPUSCULAR HGB CONC 32.8 % (33.0-36.5); MEAN CORPUSCULAR VOLUME 87.8 FL (78-98); MEAN PLATELET VOLUME 6.8 FL (7.4-10.4); MONOCYTES # (AUTO) 1.2 X10'3 (0-0.9); MONOCYTES % (AUTO) 7.4 % (2-12); NEUTROPHILS # (AUTO) 13.8 X10'3 (1.8-7.7); PLATELET COUNT 587 X10'3 (140-440); RED BLOOD COUNT 2.79 X10'6 (4.20-5.60); RED CELL DISTRIBUTION WIDTH 16.5 % (11.5-14.5)
[2018-04-10 20:24] LABS: ALBUMIN 1.3 G/DL (3.4-5.0); ANION GAP 7 (8-16); BLOOD UREA NITROGEN 17 MG/DL (7-18); BUN/CREATININE RATIO 17.7 (6.6-38.0); CALCIUM 9.5 MG/DL (8.5-10.1); CHLORIDE 100 MMOL/L (99-107); CREATININE 0.96 MG/DL (0.40-0.90); GLUCOSE 139 MG/DL (70-104); MAGNESIUM 1.7 MG/DL (1.5-2.4); PHOSPHORUS 1.8 MG/DL (2.3-4.5); POTASSIUM 3.6 MMOL/L (3.5-5.1); SODIUM 137 MMOL/L (135-145); TOTAL CARBON DIOXIDE 30.2 MMOL/L (24-32); eGFR 59 ML/MIN
[2018-04-10] MEDS ORDERED: albumin (Human) 5% 250ml 250 ML IV ONE (20:50)
[2018-04-10] MEDS: insulin glargine (Lantus) pen - multi-dose SQ SCH (21:00)
[2018-04-10] MEDS: Neutra Phos packet PO PRN (21:33)
[2018-04-10] MEDS: dexmedetomidin/NS 400mcg/100ml 100 ML IV SCH (23:38)
[2018-04-11] VITALS (29 sets, daily range): BP systolic 77–138; BP diastolic 41–63
[2018-04-11] MEDS: NORMAL SALINE IV PRN ×2 (00:20→19:04)
[2018-04-11] MEDS: CALCIUM CHLORIDE IV PRN ×2 (00:20→19:04)
[2018-04-11] MEDS: bicarb dialysis sol NO calcium 5,000 ML HE SCH ×14 (00:27→22:59)
[2018-04-11] MEDS: citrate dextrose 1000ml IV sol 1,000 ML IV PRN ×5 (01:15→19:04)
[2018-04-11] MEDS: mineral oil/petrolatum ophthal oint EACHEYE SCH ×4 (01:54→21:34)
[2018-04-11] MEDS: FENTANYL-0.9 % NACL/PF 100 ML IV PRN ×3 (01:54→18:03)
[2018-04-11] MEDS: ipratropium/albuterol 3ml nebule NEB SCH ×6 (02:26→22:40)
[2018-04-11 03:23] LABS: BASOPHILS % (AUTO) 0.3 % (0-1); EOSINOPHILS # (AUTO) 0.7 X10'3 (0-0.9); EOSINOPHILS % (AUTO) 4.5 % (0-6); HEMATOCRIT 23.4 % (35.0-45.0); HEMOGLOBIN 7.7 g/dl (12.0-16.0); LYMPHOCYTES # (AUTO) 0.3 X10'3 (1.1-4.8); MEAN CORPUSCULAR HGB CONC 33.1 % (33.0-36.5); MEAN CORPUSCULAR VOLUME 87.5 FL (78-98); MEAN PLATELET VOLUME 7.4 FL (7.4-10.4); MONOCYTES # (AUTO) 1.1 X10'3 (0-0.9); MONOCYTES % (AUTO) 7.4 % (2-12); NEUTROPHILS # (AUTO) 13.1 X10'3 (1.8-7.7); NEUTROPHILS % (AUTO) 85.8 % (42-75); PLATELET COUNT 487 X10'3 (140-440); RED BLOOD COUNT 2.67 X10'6 (4.20-5.60); RED CELL DISTRIBUTION WIDTH 16.8 % (11.5-14.5); WHITE BLOOD COUNT 15.2 X10'3 (4.5-11.0)
[2018-04-11 03:39] LABS: ALANINE AMINOTRANSFERASE 18 U/L (12-78); ALBUMIN 1.5 G/DL (3.4-5.0); ALBUMIN/GLOBULIN RATIO 0.3 (1.1-1.5); ALKALINE PHOSPHATASE 142 IU/L (46-116); ANION GAP 7 (8-16); ASPARTATE AMINO TRANSFERASE 24 U/L (10-37); BILIRUBIN,TOTAL 0.2 MG/DL (0.1-1.0); BLOOD UREA NITROGEN 15 MG/DL (7-18); BUN/CREATININE RATIO 17.4 (6.6-38.0); CALCIUM 9.4 MG/DL (8.5-10.1); CHLORIDE 100 MMOL/L (99-107); CREATININE 0.86 MG/DL (0.40-0.90); GLUCOSE 139 MG/DL (70-104); MAGNESIUM 1.7 MG/DL (1.5-2.4); PHOSPHORUS 1.6 MG/DL (2.3-4.5); POTASSIUM 3.6 MMOL/L (3.5-5.1); SODIUM 138 MMOL/L (135-145); TOTAL CARBON DIOXIDE 31.1 MMOL/L (24-32); TOTAL PROTEIN 5.9 G/DL (6.4-8.2); eGFR 67 ML/MIN
[2018-04-11] MEDS: Neutra Phos packet PO PRN ×2 (03:51→21:33)
[2018-04-11 03:54] LABS: ANISOCYTOSIS 1+; NUCLEATED RED BLOOD CELLS 1 /100WBC (0-0); PLATELET ESTIMATE INCREASED; TOTAL CELLS COUNTED 100
[2018-04-11 03:55] LABS: HYPOCHROMASIA 1+; POLYCHROMASIA 2+
[2018-04-11 04:36] LABS: ABG BASE EXCESS 1.9 mmol/L (-2.0-3.0); ABG HCO3 27.7 mmol/L (22.0-26.0); ABG OXYGEN SATURATION 88.9 % (95-98); ABG PCO2 (T) 47.8 mmHg (32.0-45.0); ABG PH (T) 7.376 (7.350-7.450); ABG PO2 (T) 50.9 mmHg (83-108); FCOHb 0.3 % (0.5-1.5); FO2Hb 88.6 % (94-100); MINUTE VOLUME 12 L/min; PATIENT TEMPERATURE 35.9; PEEP 5 cm H2O; RESPIRATORY RATE 22 b/min; RESPIRATORY RATE (OBSERVED) 31 b/min; TIDAL VOLUME 350 mL; TOTAL HEMOGLOBIN 8.7 G/dl (12.0-16.0)
[2018-04-11] MEDS: clonazePAM 0.5mg tablet PO SCH (06:41)
[2018-04-11] MEDS: lactobacillus rhamnosus 10,000 MMU CELLS/CAPSULE PO SCH ×2 (06:55→21:33)
[2018-04-11] MEDS: famotidine/PF 10 mg/ml inj IV SCH ×2 (06:56→21:32)
[2018-04-11] MEDS: amiodarone 200mg tablet PO SCH ×2 (06:56→21:33)
[2018-04-11] MEDS: heparin, porcine 5000 units/ml vial SQ SCH ×2 (06:56→21:33)
[2018-04-11] MEDS: meropenem inj 500 MG in normal saline 100ml IV soln 100 ML IV SCH (06:57)
[2018-04-11] MEDS: midazolam 100mg in NS 100ml 100 ML IV PRN ×2 (07:20→17:08)
[2018-04-11 08:09] LABS: ALBUMIN 1.4 G/DL (3.4-5.0); ANION GAP 4 (8-16); BLOOD UREA NITROGEN 11 MG/DL (7-18); BUN/CREATININE RATIO 13.9 (6.6-38.0); CHLORIDE 103 MMOL/L (99-107); CREATININE 0.79 MG/DL (0.40-0.90); GLUCOSE 113 MG/DL (70-104); MAGNESIUM 1.5 MG/DL (1.5-2.4); PHOSPHORUS 1.9 MG/DL (2.3-4.5); POTASSIUM 3.6 MMOL/L (3.5-5.1); SODIUM 139 MMOL/L (135-145); TOTAL CARBON DIOXIDE 31.7 MMOL/L (24-32); eGFR 74 ML/MIN
[2018-04-11] MEDS ORDERED: epoetin 20,000 units/ml inj SQ ONE (09:15)
[2018-04-11] MEDS: sodium ferric gluc complex inj 125 MG in normal saline 100ml IV soln 100 ML IV SCH (09:52)
[2018-04-11] MEDS ORDERED: tPA-cathflo 2 MG/2 ml IV flush IVF ONE (12:40)
[2018-04-11 14:55] LABS: ALBUMIN 1.3 G/DL (3.4-5.0); ANION GAP 4 (8-16); BLOOD UREA NITROGEN 12 MG/DL (7-18); CHLORIDE 103 MMOL/L (99-107); CREATININE 0.86 MG/DL (0.40-0.90); GLUCOSE 100 MG/DL (70-104); MAGNESIUM 1.6 MG/DL (1.5-2.4); PHOSPHORUS 1.8 MG/DL (2.3-4.5); POTASSIUM 3.7 MMOL/L (3.5-5.1); SODIUM 139 MMOL/L (135-145); TOTAL CARBON DIOXIDE 32.5 MMOL/L (24-32); eGFR 67 ML/MIN
[2018-04-11] MEDS ORDERED: heparin 1,000unit/ml 10ml vial 10 ML ONE (16:11)
[2018-04-11] MEDS ORDERED: LIDOcaine 1% (10mg/ml) 2ml vial ONE (16:15)
[2018-04-11] MEDS ORDERED: calcium chloride inj. 10,000 MG in normal saline 500ml IV soln 400 ML IV PRN ×4 (17:25)
[2018-04-11] MEDS ORDERED: NORepinephrine 8mg/ 250ml NS 250 ML IV ONE (17:49)
[2018-04-11 20:06] LABS: BASOPHILS % (AUTO) 0.1 % (0-1); EOSINOPHILS # (AUTO) 0.6 X10'3 (0-0.9); EOSINOPHILS % (AUTO) 3.9 % (0-6); HEMATOCRIT 23.2 % (35.0-45.0); HEMOGLOBIN 7.7 g/dl (12.0-16.0); LYMPHOCYTES # (AUTO) 0.5 X10'3 (1.1-4.8); LYMPHOCYTES % (AUTO) 3.3 % (21-51); MEAN CORPUSCULAR VOLUME 87.9 FL (78-98); MEAN PLATELET VOLUME 6.9 FL (7.4-10.4); MONOCYTES # (AUTO) 0.8 X10'3 (0-0.9); NEUTROPHILS # (AUTO) 13.5 X10'3 (1.8-7.7); NEUTROPHILS % (AUTO) 87.7 % (42-75); PLATELET COUNT 327 X10'3 (140-440); RED BLOOD COUNT 2.64 X10'6 (4.20-5.60); RED CELL DISTRIBUTION WIDTH 16.7 % (11.5-14.5); WHITE BLOOD COUNT 15.4 X10'3 (4.5-11.0)
[2018-04-11 20:14] LABS: ALBUMIN 1.4 G/DL (3.4-5.0); ANION GAP 5 (8-16); BLOOD UREA NITROGEN 11 MG/DL (7-18); BUN/CREATININE RATIO 12.4 (6.6-38.0); CHLORIDE 103 MMOL/L (99-107); CREATININE 0.89 MG/DL (0.40-0.90); GLUCOSE 110 MG/DL (70-104); MAGNESIUM 1.6 MG/DL (1.5-2.4); PHOSPHORUS 1.6 MG/DL (2.3-4.5); SODIUM 139 MMOL/L (135-145); TOTAL CARBON DIOXIDE 30.9 MMOL/L (24-32); eGFR 64 ML/MIN
[2018-04-11] MEDS: insulin glargine (Lantus) pen - multi-dose SQ SCH (21:00)
[2018-04-11] MEDS: dexmedetomidin/NS 400mcg/100ml 100 ML IV SCH (22:16)
[2018-04-12] VITALS (24 sets, daily range): BP systolic 80–137; BP diastolic 44–67
[2018-04-12] MEDS: citrate dextrose 1000ml IV sol 1,000 ML IV PRN ×7 (00:11→23:43)
[2018-04-12] MEDS: mineral oil/petrolatum ophthal oint EACHEYE SCH ×4 (02:00→20:26)
[2018-04-12] MEDS: ipratropium/albuterol 3ml nebule NEB SCH ×6 (02:37→22:39)
[2018-04-12 02:53] LABS: BASOPHILS % (AUTO) 0.3 % (0-1); EOSINOPHILS # (AUTO) 0.6 X10'3 (0-0.9); HEMATOCRIT 22.5 % (35.0-45.0); HEMOGLOBIN 7.4 g/dl (12.0-16.0); LYMPHOCYTES # (AUTO) 0.5 X10'3 (1.1-4.8); LYMPHOCYTES % (AUTO) 3.2 % (21-51); MEAN CORPUSCULAR HEMOGLOBIN 29.1 PG (27.0-31.0); MEAN CORPUSCULAR HGB CONC 33.1 % (33.0-36.5); MEAN CORPUSCULAR VOLUME 87.8 FL (78-98); MONOCYTES # (AUTO) 0.9 X10'3 (0-0.9); MONOCYTES % (AUTO) 5.7 % (2-12); NEUTROPHILS # (AUTO) 13.8 X10'3 (1.8-7.7); NEUTROPHILS % (AUTO) 86.8 % (42-75); PLATELET COUNT 314 X10'3 (140-440); RED BLOOD COUNT 2.56 X10'6 (4.20-5.60); RED CELL DISTRIBUTION WIDTH 16.9 % (11.5-14.5); WHITE BLOOD COUNT 15.8 X10'3 (4.5-11.0)
[2018-04-12 03:28] LABS: ALANINE AMINOTRANSFERASE 19 U/L (12-78); ALBUMIN 1.3 G/DL (3.4-5.0); ALBUMIN/GLOBULIN RATIO 0.3 (1.1-1.5); ALKALINE PHOSPHATASE 166 IU/L (46-116); ANION GAP 6 (8-16); ASPARTATE AMINO TRANSFERASE 31 U/L (10-37); BILIRUBIN,TOTAL 0.2 MG/DL (0.1-1.0); BLOOD UREA NITROGEN 11 MG/DL (7-18); BUN/CREATININE RATIO 11.7 (6.6-38.0); CALCIUM 9.2 MG/DL (8.5-10.1); CHLORIDE 102 MMOL/L (99-107); CREATININE 0.94 MG/DL (0.40-0.90); GLUCOSE 140 MG/DL (70-104); POTASSIUM 3.7 MMOL/L (3.5-5.1); SODIUM 139 MMOL/L (135-145); TOTAL PROTEIN 5.6 G/DL (6.4-8.2); eGFR 60 ML/MIN
[2018-04-12] MEDS: FENTANYL-0.9 % NACL/PF 100 ML IV PRN ×2 (03:57→17:57)
[2018-04-12] MEDS: midazolam 100mg in NS 100ml 100 ML IV PRN ×2 (03:58→20:27)
[2018-04-12 03:59] LABS: ANISOCYTOSIS 1+; PLATELET ESTIMATE NORMAL; TOTAL CELLS COUNTED 100
[2018-04-12 04:00] LABS: HYPOCHROMASIA 1+; LARGE PLATELETS FEW; POLYCHROMASIA 1+
[2018-04-12 04:11] LABS: ABG BASE EXCESS 6.2 mmol/L (-2.0-3.0); ABG HCO3 31.9 mmol/L (22.0-26.0); ABG OXYGEN SATURATION 97.7 % (95-98); ABG PCO2 (T) 49.3 mmHg (32.0-45.0); ABG PH (T) 7.421 (7.350-7.450); ABG PO2 (T) 92.6 mmHg (83-108); FCOHb 0.5 % (0.5-1.5); FMetHb 0.2 % (0.3-1.12); MINUTE VOLUME 9 L/min; PATIENT TEMPERATURE 35.2; PEEP 5 cm H2O; RESPIRATORY RATE 22 b/min; RESPIRATORY RATE (OBSERVED) 31 b/min; TIDAL VOLUME 350 mL; TOTAL HEMOGLOBIN 8.1 G/dl (12.0-16.0)
[2018-04-12 04:25] LABS: PHOSPHORUS 1.4 MG/DL (2.3-4.5)
[2018-04-12] MEDS: dexmedetomidin/NS 400mcg/100ml 100 ML IV SCH ×4 (05:06→20:26)
[2018-04-12] MEDS: Neutra Phos packet PO PRN ×3 (05:07→23:17)
[2018-04-12] MEDS: NORepinephrine 8mg/ 250ml NS 250 ML IV PRN (05:39)
[2018-04-12] MEDS: bicarb dialysis sol NO calcium 5,000 ML HE SCH ×10 (05:55→19:54)
[2018-04-12] MEDS: meropenem inj 500 MG in normal saline 100ml IV soln 100 ML IV SCH ×4 (07:19→20:26)
[2018-04-12] MEDS: lactobacillus rhamnosus 10,000 MMU CELLS/CAPSULE PO SCH ×2 (07:19→20:27)
[2018-04-12] MEDS: amiodarone 200mg tablet PO SCH ×2 (07:19→20:27)
[2018-04-12] MEDS: famotidine/PF 10 mg/ml inj IV SCH ×2 (07:19→20:27)
[2018-04-12] MEDS: clonazePAM 0.5mg tablet PO SCH (07:27)
[2018-04-12] MEDS: heparin, porcine 5000 units/ml vial SQ SCH ×2 (07:38→20:27)
[2018-04-12 08:19] LABS: ALBUMIN 1.2 G/DL (3.4-5.0); ANION GAP 4 (8-16); BLOOD UREA NITROGEN 10 MG/DL (7-18); BUN/CREATININE RATIO 12.3 (6.6-38.0); CHLORIDE 103 MMOL/L (99-107); CREATININE 0.81 MG/DL (0.40-0.90); GLUCOSE 163 MG/DL (70-104); MAGNESIUM 1.6 MG/DL (1.5-2.4); PHOSPHORUS 1.3 MG/DL (2.3-4.5); POTASSIUM 3.4 MMOL/L (3.5-5.1); SODIUM 139 MMOL/L (135-145); TOTAL CARBON DIOXIDE 32.3 MMOL/L (24-32); eGFR 72 ML/MIN
[2018-04-12] MEDS: sodium ferric gluc complex inj 125 MG in normal saline 100ml IV soln 100 ML IV SCH (08:38)
[2018-04-12] MEDS: calcium chloride inj. 10,000 MG in normal saline 500ml IV soln 400 ML IV PRN ×2 (09:00→22:25)
[2018-04-12] MEDS: potassium Cl 20mEq/100mL bag 100 ML IV PRN ×2 (10:32→23:17)
[2018-04-12 14:17] LABS: ALBUMIN 1.2 G/DL (3.4-5.0); ANION GAP 3 (8-16); BLOOD UREA NITROGEN 9 MG/DL (7-18); BUN/CREATININE RATIO 13.6 (6.6-38.0); CHLORIDE 103 MMOL/L (99-107); CREATININE 0.66 MG/DL (0.40-0.90); GLUCOSE 147 MG/DL (70-104); MAGNESIUM 1.6 MG/DL (1.5-2.4); POTASSIUM 3.6 MMOL/L (3.5-5.1); SODIUM 139 MMOL/L (135-145); TOTAL CARBON DIOXIDE 32.6 MMOL/L (24-32); eGFR > 90 ML/MIN
[2018-04-12 14:19] LABS: PHOSPHORUS 1.2 MG/DL (2.3-4.5)
[2018-04-12] MEDS: insulin glargine (Lantus) pen - multi-dose SQ SCH (20:01)
[2018-04-12 20:41] LABS: ALBUMIN 1.2 G/DL (3.4-5.0); ANION GAP 2 (8-16); BLOOD UREA NITROGEN 10 MG/DL (7-18); BUN/CREATININE RATIO 14.3 (6.6-38.0); CHLORIDE 102 MMOL/L (99-107); GLUCOSE 83 MG/DL (70-104); MAGNESIUM 1.7 MG/DL (1.5-2.4); PHOSPHORUS 1.7 MG/DL (2.3-4.5); POTASSIUM 3.8 MMOL/L (3.5-5.1); SODIUM 138 MMOL/L (135-145); eGFR 85 ML/MIN
[2018-04-13] VITALS (24 sets, daily range): BP systolic 83–143; BP diastolic 46–75
[2018-04-13] MEDS: potassium Cl 20mEq/100mL bag 100 ML IV PRN (00:08)
[2018-04-13] MEDS: dexmedetomidin/NS 400mcg/100ml 100 ML IV SCH ×5 (01:00→19:43)
[2018-04-13] MEDS: meropenem inj 500 MG in normal saline 100ml IV soln 100 ML IV SCH ×4 (01:32→19:41)
[2018-04-13] MEDS: mineral oil/petrolatum ophthal oint EACHEYE SCH ×4 (01:32→19:43)
[2018-04-13 02:40] LABS: BASOPHILS % (AUTO) 0 % (0-1); EOSINOPHILS # (AUTO) 0.9 X10'3 (0-0.9); EOSINOPHILS % (AUTO) 5.2 % (0-6); HEMATOCRIT 24.8 % (35.0-45.0); HEMOGLOBIN 7.6 g/dl (12.0-16.0); LYMPHOCYTES # (AUTO) 0.4 X10'3 (1.1-4.8); LYMPHOCYTES % (AUTO) 2.2 % (21-51); MEAN CORPUSCULAR HEMOGLOBIN 27.3 PG (27.0-31.0); MEAN CORPUSCULAR HGB CONC 30.7 % (33.0-36.5); MEAN CORPUSCULAR VOLUME 89.2 FL (78-98); MEAN PLATELET VOLUME 7.4 FL (7.4-10.4); MONOCYTES # (AUTO) 0.8 X10'3 (0-0.9); MONOCYTES % (AUTO) 4.9 % (2-12); NEUTROPHILS # (AUTO) 14.3 X10'3 (1.8-7.7); NEUTROPHILS % (AUTO) 87.7 % (42-75); PLATELET COUNT 160 X10'3 (140-440); RED BLOOD COUNT 2.78 X10'6 (4.20-5.60); WHITE BLOOD COUNT 16.3 X10'3 (4.5-11.0)
[2018-04-13] MEDS: ipratropium/albuterol 3ml nebule NEB SCH ×6 (02:45→22:33)
[2018-04-13] MEDS: bicarb dialysis sol NO calcium 5,000 ML HE SCH ×13 (02:51→22:04)
[2018-04-13 02:52] LABS: ALBUMIN 1.2 G/DL (3.4-5.0); ANION GAP 5 (8-16); BLOOD UREA NITROGEN 8 MG/DL (7-18); BUN/CREATININE RATIO 11.6 (6.6-38.0); CHLORIDE 102 MMOL/L (99-107); CREATININE 0.69 MG/DL (0.40-0.90); GLUCOSE 152 MG/DL (70-104); MAGNESIUM 2.5 MG/DL (1.5-2.4); PHOSPHORUS 1.3 MG/DL (2.3-4.5); POTASSIUM 4.7 MMOL/L (3.5-5.1); SODIUM 139 MMOL/L (135-145); TOTAL CARBON DIOXIDE 31.7 MMOL/L (24-32); eGFR 86 ML/MIN
[2018-04-13] MEDS: citrate dextrose 1000ml IV sol 1,000 ML IV PRN (02:53)
[2018-04-13 02:56] LABS: ALANINE AMINOTRANSFERASE 21 U/L (12-78); ALBUMIN 1.2 G/DL (3.4-5.0); ALBUMIN/GLOBULIN RATIO 0.3 (1.1-1.5); ALKALINE PHOSPHATASE 166 IU/L (46-116); ANION GAP 6 (8-16); ASPARTATE AMINO TRANSFERASE 28 U/L (10-37); BILIRUBIN,TOTAL 0.1 MG/DL (0.1-1.0); BLOOD UREA NITROGEN 7 MG/DL (7-18); BUN/CREATININE RATIO 10.1 (6.6-38.0); CALCIUM 9.2 MG/DL (8.5-10.1); CHLORIDE 102 MMOL/L (99-107); CREATININE 0.69 MG/DL (0.40-0.90); GLUCOSE 151 MG/DL (70-104); POTASSIUM 4.7 MMOL/L (3.5-5.1); SODIUM 138 MMOL/L (135-145); TOTAL CARBON DIOXIDE 30.2 MMOL/L (24-32); TOTAL PROTEIN 5.6 G/DL (6.4-8.2); eGFR 86 ML/MIN
[2018-04-13 02:58] LABS: LARGE PLATELETS FEW; PLATELET ESTIMATE NORMAL
[2018-04-13] MEDS: NORepinephrine 8mg/ 250ml NS 250 ML IV PRN ×2 (03:02→18:07)
[2018-04-13 03:36] LABS: ABG BASE EXCESS 2.4 mmol/L (-2.0-3.0); ABG HCO3 28.5 mmol/L (22.0-26.0); ABG OXYGEN SATURATION 97.9 % (95-98); ABG PCO2 (T) 50.9 mmHg (32.0-45.0); ABG PH (T) 7.363 (7.350-7.450); ABG PO2 (T) 106.1 mmHg (83-108); ALLEN'S TEST Positive; FCOHb 0.3 % (0.5-1.5); FMetHb 0.2 % (0.3-1.12); FO2Hb 97.4 % (94-100); MINUTE VOLUME 8 L/min; PATIENT TEMPERATURE 36.1; PEEP 5 cm H2O; RESPIRATORY RATE 22 b/min; RESPIRATORY RATE (OBSERVED) 22 b/min; TIDAL VOLUME 350 mL; TOTAL HEMOGLOBIN 8.4 G/dl (12.0-16.0)
[2018-04-13] MEDS: FENTANYL-0.9 % NACL/PF 100 ML IV PRN ×3 (03:58→22:12)
[2018-04-13] MEDS: Neutra Phos packet PO PRN ×2 (05:38→08:00)
[2018-04-13] MEDS ORDERED: heparin 1,000 units/ml 10ml inj HE ONE ×4 (08:05→08:55)
[2018-04-13] MEDS: lactobacillus rhamnosus 10,000 MMU CELLS/CAPSULE PO SCH ×2 (08:34→19:41)
[2018-04-13] MEDS: clonazePAM 0.5mg tablet PO SCH (08:34)
[2018-04-13] MEDS: famotidine/PF 10 mg/ml inj IV SCH ×2 (08:34→19:41)
[2018-04-13] MEDS: heparin, porcine 5000 units/ml vial SQ SCH ×2 (08:34→19:41)
[2018-04-13] MEDS: amiodarone 200mg tablet PO SCH ×2 (08:34→19:41)
[2018-04-13] MEDS ORDERED: normal saline 1000ml 250 ML IV PRN (08:50)
[2018-04-13] MEDS ORDERED: epoetin 20,000 units/ml inj IV ONE (08:50)
[2018-04-13] MEDS ORDERED: heparin 1,000unit/ml 10ml vial 10 ML IV ONE (08:50)
[2018-04-13] MEDS: sodium ferric gluc complex inj 125 MG in normal saline 100ml IV soln 100 ML IV SCH (09:08)
[2018-04-13] MEDS: midazolam 100mg in NS 100ml 100 ML IV PRN ×2 (12:23→22:11)
[2018-04-13] MEDS: insulin glargine (Lantus) pen - multi-dose SQ SCH (21:00)
[2018-04-13 22:20] LABS: BASOPHILS % (AUTO) 0 % (0-1); EOSINOPHILS # (AUTO) 0.6 X10'3 (0-0.9); EOSINOPHILS % (AUTO) 3.1 % (0-6); HEMATOCRIT 22.9 % (35.0-45.0); HEMOGLOBIN 7.1 g/dl (12.0-16.0); LYMPHOCYTES # (AUTO) 0.6 X10'3 (1.1-4.8); LYMPHOCYTES % (AUTO) 3.2 % (21-51); MEAN CORPUSCULAR HEMOGLOBIN 27.7 PG (27.0-31.0); MEAN CORPUSCULAR VOLUME 89.3 FL (78-98); MEAN PLATELET VOLUME 7.2 FL (7.4-10.4); MONOCYTES # (AUTO) 1.2 X10'3 (0-0.9); MONOCYTES % (AUTO) 6.3 % (2-12); NEUTROPHILS # (AUTO) 16.1 X10'3 (1.8-7.7); NEUTROPHILS % (AUTO) 87.4 % (42-75); PLATELET COUNT 248 X10'3 (140-440); RED BLOOD COUNT 2.56 X10'6 (4.20-5.60); RED CELL DISTRIBUTION WIDTH 17.8 % (11.5-14.5); WHITE BLOOD COUNT 18.4 X10'3 (4.5-11.0)
[2018-04-13 22:38] LABS: ANISOCYTOSIS 2+; NUCLEATED RED BLOOD CELLS 3 /100WBC (0-0); PLATELET ESTIMATE NORMAL; TOTAL CELLS COUNTED 100
[2018-04-13 22:39] LABS: POLYCHROMASIA FEW; STOMATOCYTES FEW
[2018-04-13 22:46] LABS: ALANINE AMINOTRANSFERASE 23 U/L (12-78); ALBUMIN 1.2 G/DL (3.4-5.0); ALBUMIN/GLOBULIN RATIO 0.3 (1.1-1.5); ALKALINE PHOSPHATASE 225 IU/L (46-116); ANION GAP 0 (8-16); ASPARTATE AMINO TRANSFERASE 23 U/L (10-37); BILIRUBIN,TOTAL 0.1 MG/DL (0.1-1.0); BLOOD UREA NITROGEN 10 MG/DL (7-18); BUN/CREATININE RATIO 10.3 (6.6-38.0); CHLORIDE 105 MMOL/L (99-107); CREATININE 0.97 MG/DL (0.40-0.90); GLUCOSE 95 MG/DL (70-104); MAGNESIUM 1.8 MG/DL (1.5-2.4); PHOSPHORUS 1.6 MG/DL (2.3-4.5); SODIUM 138 MMOL/L (135-145); TOTAL CARBON DIOXIDE 33.4 MMOL/L (24-32); TOTAL PROTEIN 5.5 G/DL (6.4-8.2); eGFR 58 ML/MIN
[2018-04-14] VITALS (23 sets, daily range): BP systolic 91–133; BP diastolic 44–63
[2018-04-14] MEDS: dexmedetomidin/NS 400mcg/100ml 100 ML IV SCH ×4 (00:48→18:25)
[2018-04-14] MEDS: NORepinephrine 8mg/ 250ml NS 250 ML IV PRN ×3 (00:48→19:01)
[2018-04-14] MEDS: meropenem inj 500 MG in normal saline 100ml IV soln 100 ML IV SCH ×2 (02:06→08:00)
[2018-04-14] MEDS: mineral oil/petrolatum ophthal oint EACHEYE SCH ×4 (02:07→19:37)
[2018-04-14 02:36] LABS: BASOPHILS % (AUTO) 0.1 % (0-1); EOSINOPHILS # (AUTO) 0.8 X10'3 (0-0.9); EOSINOPHILS % (AUTO) 4.6 % (0-6); HEMATOCRIT 22.8 % (35.0-45.0); HEMOGLOBIN 7.1 g/dl (12.0-16.0); LYMPHOCYTES # (AUTO) 0.8 X10'3 (1.1-4.8); LYMPHOCYTES % (AUTO) 4.7 % (21-51); MEAN CORPUSCULAR HEMOGLOBIN 27.9 PG (27.0-31.0); MEAN CORPUSCULAR HGB CONC 31.2 % (33.0-36.5); MEAN CORPUSCULAR VOLUME 89.5 FL (78-98); MEAN PLATELET VOLUME 7.4 FL (7.4-10.4); MONOCYTES # (AUTO) 1.1 X10'3 (0-0.9); NEUTROPHILS # (AUTO) 14.9 X10'3 (1.8-7.7); NEUTROPHILS % (AUTO) 84.6 % (42-75); PLATELET COUNT 289 X10'3 (140-440); RED BLOOD COUNT 2.55 X10'6 (4.20-5.60); RED CELL DISTRIBUTION WIDTH 17.9 % (11.5-14.5); WHITE BLOOD COUNT 17.6 X10'3 (4.5-11.0)
[2018-04-14] MEDS: ipratropium/albuterol 3ml nebule NEB SCH ×6 (02:40→22:30)
[2018-04-14 03:03] LABS: ALANINE AMINOTRANSFERASE 24 U/L (12-78); ALBUMIN 1.2 G/DL (3.4-5.0); ALBUMIN/GLOBULIN RATIO 0.3 (1.1-1.5); ALKALINE PHOSPHATASE 228 IU/L (46-116); ANION GAP 2 (8-16); ASPARTATE AMINO TRANSFERASE 34 U/L (10-37); BILIRUBIN,TOTAL 0.1 MG/DL (0.1-1.0); BLOOD UREA NITROGEN 12 MG/DL (7-18); BUN/CREATININE RATIO 10.7 (6.6-38.0); CALCIUM 8.2 MG/DL (8.5-10.1); CHLORIDE 105 MMOL/L (99-107); CREATININE 1.12 MG/DL (0.40-0.90); GLUCOSE 110 MG/DL (70-104); MAGNESIUM 1.9 MG/DL (1.5-2.4); PHOSPHORUS 1.8 MG/DL (2.3-4.5); POTASSIUM 4.8 MMOL/L (3.5-5.1); PREALBUMIN 13.7 MG/DL (19-36); SODIUM 138 MMOL/L (135-145); TOTAL CARBON DIOXIDE 31.3 MMOL/L (24-32); TOTAL PROTEIN 5.5 G/DL (6.4-8.2); TRIGLYCERIDES 211 MG/DL (20-135); eGFR 49 ML/MIN
[2018-04-14 04:11] LABS: ABG BASE EXCESS 5.6 mmol/L (-2.0-3.0); ABG HCO3 30.2 mmol/L (22.0-26.0); ABG OXYGEN SATURATION 93.1 % (95-98); ABG PCO2 (T) 42.7 mmHg (32.0-45.0); ABG PH (T) 7.464 (7.350-7.450); FCOHb 0.3 % (0.5-1.5); FMetHb 0.2 % (0.3-1.12); FO2Hb 92.6 % (94-100); MINUTE VOLUME 8 L/min; PATIENT TEMPERATURE 36.1; PEEP 5 cm H2O; RESPIRATORY RATE 22 b/min; RESPIRATORY RATE (OBSERVED) 22 b/min; TIDAL VOLUME 350 mL; TOTAL HEMOGLOBIN 7.7 G/dl (12.0-16.0)
[2018-04-14] MEDS ORDERED: normal saline 1000ml 250 ML IV PRN (07:14)
[2018-04-14] MEDS ORDERED: heparin 1,000unit/ml 10ml vial 10 ML IV ONE (07:14)
[2018-04-14] MEDS ORDERED: epoetin 20,000 units/ml inj IV ONE (07:15)
[2018-04-14] MEDS ORDERED: heparin 1,000 units/ml 10ml inj HE ONE ×2 (07:20)
[2018-04-14] MEDS: bicarb dialysis sol NO calcium 5,000 ML HE SCH ×8 (08:11→19:39)
[2018-04-14] MEDS: lactobacillus rhamnosus 10,000 MMU CELLS/CAPSULE PO SCH ×2 (08:41→19:38)
[2018-04-14] MEDS: famotidine/PF 10 mg/ml inj IV SCH ×2 (08:41→19:38)
[2018-04-14] MEDS: clonazePAM 0.5mg tablet PO SCH (08:41)
[2018-04-14] MEDS: amiodarone 200mg tablet PO SCH ×2 (08:41→19:38)
[2018-04-14] MEDS: heparin, porcine 5000 units/ml vial SQ SCH ×2 (08:42→19:38)
[2018-04-14] MEDS: sodium ferric gluc complex inj 125 MG in normal saline 100ml IV soln 100 ML IV SCH (08:42)
[2018-04-14] MEDS: FENTANYL-0.9 % NACL/PF 100 ML IV PRN ×2 (08:44→19:01)
[2018-04-14] MEDS: midazolam 100mg in NS 100ml 100 ML IV PRN ×2 (08:45→19:00)
[2018-04-14] MEDS: insulin glargine (Lantus) pen - multi-dose SQ SCH (19:39)
[2018-04-15] VITALS (18 sets, daily range): BP systolic 98–134; BP diastolic 39–92
[2018-04-15] MEDS: dexmedetomidin/NS 400mcg/100ml 100 ML IV SCH ×2 (01:36→05:14)
[2018-04-15] MEDS: mineral oil/petrolatum ophthal oint EACHEYE SCH ×2 (02:00→08:07)
[2018-04-15 02:24] LABS: BASOPHILS % (AUTO) 0.1 % (0-1); EOSINOPHILS # (AUTO) 0.5 X10'3 (0-0.9); EOSINOPHILS % (AUTO) 3.5 % (0-6); HEMATOCRIT 22.1 % (35.0-45.0); LYMPHOCYTES # (AUTO) 0.8 X10'3 (1.1-4.8); LYMPHOCYTES % (AUTO) 5.8 % (21-51); MEAN CORPUSCULAR HEMOGLOBIN 28.1 PG (27.0-31.0); MEAN CORPUSCULAR HGB CONC 31.6 % (33.0-36.5); MEAN PLATELET VOLUME 7.3 FL (7.4-10.4); MONOCYTES # (AUTO) 0.8 X10'3 (0-0.9); NEUTROPHILS # (AUTO) 11.7 X10'3 (1.8-7.7); NEUTROPHILS % (AUTO) 84.6 % (42-75); PLATELET COUNT 305 X10'3 (140-440); RED BLOOD COUNT 2.49 X10'6 (4.20-5.60); RED CELL DISTRIBUTION WIDTH 18.7 % (11.5-14.5); WHITE BLOOD COUNT 13.8 X10'3 (4.5-11.0)
[2018-04-15] MEDS: ipratropium/albuterol 3ml nebule NEB SCH ×3 (02:29→11:19)
[2018-04-15 02:42] LABS: ALANINE AMINOTRANSFERASE 25 U/L (12-78); ALBUMIN 1.1 G/DL (3.4-5.0); ALBUMIN/GLOBULIN RATIO 0.3 (1.1-1.5); ALKALINE PHOSPHATASE 256 IU/L (46-116); ANION GAP 6 (8-16); ASPARTATE AMINO TRANSFERASE 35 U/L (10-37); BILIRUBIN,TOTAL 0.2 MG/DL (0.1-1.0); BLOOD UREA NITROGEN 9 MG/DL (7-18); BUN/CREATININE RATIO 8.3 (6.6-38.0); CALCIUM 7.8 MG/DL (8.5-10.1); CHLORIDE 103 MMOL/L (99-107); CREATININE 1.08 MG/DL (0.40-0.90); GLUCOSE 87 MG/DL (70-104); MAGNESIUM 1.7 MG/DL (1.5-2.4); PHOSPHORUS 1.9 MG/DL (2.3-4.5); POTASSIUM 4.2 MMOL/L (3.5-5.1); SODIUM 139 MMOL/L (135-145); TOTAL PROTEIN 5.5 G/DL (6.4-8.2); eGFR 51 ML/MIN
[2018-04-15 04:00] LABS: ABG BASE EXCESS 4.1 mmol/L (-2.0-3.0); ABG HCO3 27.6 mmol/L (22.0-26.0); ABG OXYGEN SATURATION 94.1 % (95-98); ABG PCO2 (T) 36.2 mmHg (32.0-45.0); ABG PH (T) 7.499 (7.350-7.450); FCOHb 0.7 % (0.5-1.5); FMetHb 0.2 % (0.3-1.12); FO2Hb 93.3 % (94-100); MINUTE VOLUME 8 L/min; PATIENT TEMPERATURE 36.8; PEEP 5 cm H2O; RESPIRATORY RATE 22 b/min; RESPIRATORY RATE (OBSERVED) 22 b/min; TIDAL VOLUME 350 mL
[2018-04-15 04:11] LABS: ANISOCYTOSIS 2+; PLATELET ESTIMATE NORMAL; POLYCHROMASIA 1+
[2018-04-15 04:16] LABS: STOMATOCYTES 1+
[2018-04-15] MEDS: midazolam 100mg in NS 100ml 100 ML IV PRN (05:13)
[2018-04-15] MEDS: FENTANYL-0.9 % NACL/PF 100 ML IV PRN (05:14)
[2018-04-15] MEDS: clonazePAM 0.5mg tablet PO SCH (08:05)
[2018-04-15] MEDS: amiodarone 200mg tablet PO SCH (08:05)
[2018-04-15] MEDS: lactobacillus rhamnosus 10,000 MMU CELLS/CAPSULE PO SCH (08:05)
[2018-04-15] MEDS: famotidine/PF 10 mg/ml inj IV SCH (08:05)
[2018-04-15] MEDS: sodium ferric gluc complex inj 125 MG in normal saline 100ml IV soln 100 ML IV SCH (08:06)
[2018-04-15] MEDS: heparin, porcine 5000 units/ml vial SQ SCH (08:06)
[2018-04-15] MEDS ORDERED: NORepinephrine 8mg/ 250ml NS 250 ML IV ONE (15:54)
[2018-04-15] MEDS: LORazepam 2 mg/ml vial IV PRN (16:57)
== END 2018-04-15 17:43 | disposition expired | DRG 853 ==
LOC: PCU 3S 15:30 → ICU 2S 17:16
PROVIDERS: ADMIT Family Medicine; ATTEND Internal Medicine Critical Care Medicine
PROC: 5A1955Z Respiratory Ventilation, Greater than 96 Consecutive Hours (ICD-10-PCS; 2018-03-17)
PROC: 0BH17EZ Insertion of Endotracheal Airway into Trachea, Via Natural or Artificial Opening (ICD-10-PCS; 2018-03-17)
PROC: 04HY32Z Insertion of Monitoring Device into Lower Artery, Percutaneous Approach (ICD-10-PCS; 2018-03-17)
PROC: 4A133B1 Monitoring of Arterial Pressure, Peripheral, Percutaneous Approach (ICD-10-PCS; 2018-03-17)
PROC: 4A133J1 Monitoring of Arterial Pulse, Peripheral, Percutaneous Approach (ICD-10-PCS; 2018-03-17)
PROC: 0DTF0ZZ Resection of Right Large Intestine, Open Approach (ICD-10-PCS; principal; 2018-03-17 19:41)
PROC: 0D1B0Z4 Bypass Ileum to Cutaneous, Open Approach (ICD-10-PCS; 2018-03-19)
PROC: 30233N1 Transfusion of Nonautologous Red Blood Cells into Peripheral Vein, Percutaneous Approach (ICD-10-PCS; 2018-03-19)
PROC: 5A1D90Z Performance of Urinary Filtration, Continuous, Greater than 18 hours Per Day (ICD-10-PCS; 2018-03-19)
PROC: 02H633Z Insertion of Infusion Device into Right Atrium, Percutaneous Approach (ICD-10-PCS; 2018-03-19)
PROC: B244ZZZ Ultrasonography of Right Heart (ICD-10-PCS; 2018-03-19)
PROC: 06HM33Z Insertion of Infusion Device into Right Femoral Vein, Percutaneous Approach (ICD-10-PCS; 2018-03-19)
PROC: B54BZZA Ultrasonography of Right Lower Extremity Veins, Guidance (ICD-10-PCS; 2018-03-19)
PROC: 5A1D90Z Performance of Urinary Filtration, Continuous, Greater than 18 hours Per Day (ICD-10-PCS; 2018-03-20)
PROC: 30233R1 Transfusion of Nonautologous Platelets into Peripheral Vein, Percutaneous Approach (ICD-10-PCS; 2018-03-21)
PROC: 5A1D90Z Performance of Urinary Filtration, Continuous, Greater than 18 hours Per Day (ICD-10-PCS; 2018-03-21)
PROC: 5A1D90Z Performance of Urinary Filtration, Continuous, Greater than 18 hours Per Day (ICD-10-PCS; 2018-03-22)
PROC: 5A1D90Z Performance of Urinary Filtration, Continuous, Greater than 18 hours Per Day (ICD-10-PCS; 2018-03-23)
PROC: 30233N1 Transfusion of Nonautologous Red Blood Cells into Peripheral Vein, Percutaneous Approach (ICD-10-PCS; 2018-03-24)
PROC: 5A1D70Z Performance of Urinary Filtration, Intermittent, Less than 6 Hours Per Day (ICD-10-PCS; 2018-03-25)
PROC: 02HV33Z Insertion of Infusion Device into Superior Vena Cava, Percutaneous Approach (ICD-10-PCS; 2018-03-25)
PROC: B548ZZA Ultrasonography of Superior Vena Cava, Guidance (ICD-10-PCS; 2018-03-25)
PROC: 5A1D70Z Performance of Urinary Filtration, Intermittent, Less than 6 Hours Per Day (ICD-10-PCS; 2018-03-26)
PROC: 02HV33Z Insertion of Infusion Device into Superior Vena Cava, Percutaneous Approach (ICD-10-PCS; 2018-03-26)
PROC: B548ZZA Ultrasonography of Superior Vena Cava, Guidance (ICD-10-PCS; 2018-03-26)
PROC: 5A1D70Z Performance of Urinary Filtration, Intermittent, Less than 6 Hours Per Day (ICD-10-PCS; 2018-03-27)
PROC: 5A1D70Z Performance of Urinary Filtration, Intermittent, Less than 6 Hours Per Day (ICD-10-PCS; 2018-03-28)
PROC: 0JH63XZ Insertion of Tunneled Vascular Access Device into Chest Subcutaneous Tissue and Fascia, Percutaneous Approach (ICD-10-PCS; 2018-03-28)
PROC: 02HV33Z Insertion of Infusion Device into Superior Vena Cava, Percutaneous Approach (ICD-10-PCS; 2018-03-28)
PROC: B548ZZA Ultrasonography of Superior Vena Cava, Guidance (ICD-10-PCS; 2018-03-28)
PROC: B5181ZA Fluoroscopy of Superior Vena Cava using Low Osmolar Contrast, Guidance (ICD-10-PCS; 2018-03-28)
PROC: 5A1D70Z Performance of Urinary Filtration, Intermittent, Less than 6 Hours Per Day (ICD-10-PCS; 2018-03-29)
PROC: 5A1D70Z Performance of Urinary Filtration, Intermittent, Less than 6 Hours Per Day (ICD-10-PCS; 2018-03-30)
PROC: 5A1D70Z Performance of Urinary Filtration, Intermittent, Less than 6 Hours Per Day (ICD-10-PCS; 2018-03-31)
PROC: 5A09557 Assistance with Respiratory Ventilation, Greater than 96 Consecutive Hours, Continuous Positive Airway Pressure (ICD-10-PCS; 2018-04-02)
PROC: 5A1D70Z Performance of Urinary Filtration, Intermittent, Less than 6 Hours Per Day (ICD-10-PCS; 2018-04-02)
PROC: 5A1D70Z Performance of Urinary Filtration, Intermittent, Less than 6 Hours Per Day (ICD-10-PCS; 2018-04-04)
PROC: 5A1D70Z Performance of Urinary Filtration, Intermittent, Less than 6 Hours Per Day (ICD-10-PCS; 2018-04-05)
PROC: 30233N1 Transfusion of Nonautologous Red Blood Cells into Peripheral Vein, Percutaneous Approach (ICD-10-PCS; 2018-04-05)
PROC: 5A1D70Z Performance of Urinary Filtration, Intermittent, Less than 6 Hours Per Day (ICD-10-PCS; 2018-04-06)
PROC: 5A1D70Z Performance of Urinary Filtration, Intermittent, Less than 6 Hours Per Day (ICD-10-PCS; 2018-04-08)
PROC: 5A1955Z Respiratory Ventilation, Greater than 96 Consecutive Hours (ICD-10-PCS; 2018-04-09)
PROC: 0BH17EZ Insertion of Endotracheal Airway into Trachea, Via Natural or Artificial Opening (ICD-10-PCS; 2018-04-09)
PROC: 0J2TXYZ Change Other Device in Trunk Subcutaneous Tissue and Fascia, External Approach (ICD-10-PCS; 2018-04-11)
PROC: 5A1D70Z Performance of Urinary Filtration, Intermittent, Less than 6 Hours Per Day (ICD-10-PCS; 2018-04-13)
PROC: 5A1D70Z Performance of Urinary Filtration, Intermittent, Less than 6 Hours Per Day (ICD-10-PCS; 2018-04-14)
DX: A41.9 Sepsis, unspecified organism (principal); R65.21 Severe sepsis with septic shock; N17.0 Acute kidney failure with tubular necrosis; J96.20 Acute and chronic respiratory failure, unspecified whether with hypoxia or hypercapnia; K59.31 Toxic megacolon; J90 Pleural effusion, not elsewhere classified; T82.898A Other specified complication of vascular prosthetic devices, implants and grafts, initial encounter; I48.92 Unspecified atrial flutter; K55.9 Vascular disorder of intestine, unspecified; L03.116 Cellulitis of left lower limb; L03.115 Cellulitis of right lower limb; I48.0 Paroxysmal atrial fibrillation; I27.20 Pulmonary hypertension, unspecified; Z51.5 Encounter for palliative care; E87.70 Fluid overload, unspecified; Y84.1 Kidney dialysis as the cause of abnormal reaction of the patient, or of later complication, without mention of misadventure at the time of the procedure; J44.9 Chronic obstructive pulmonary disease, unspecified; Z87.891 Personal history of nicotine dependence; Z99.2 Dependence on renal dialysis; Z79.899 Other long term (current) drug therapy; Y92.89 Other specified places as the place of occurrence of the external cause; Z79.01 Long term (current) use of anticoagulants
CPT/HCPCS: 36415; 36558; 36569; 36581; 36600; 71045; 74018; 74176; 76775; 76937; 77001; 80053; 80069; 80202; 81001; 82140; 82272; 82330; 82728; 82803; 82810; 82948; 83036; 83540; 83550; 83605; 83735; 84100; 84134; 84145; 84478; 84484; 85018; 85025; 85027; 85610; 85730; 86885; 86900; 86901; 86920; 87040; 87070; 87075; 87077; 87088; 87102; 87106; 87340; 88307; 90935; 92616; 93005; 93306; 93970; 94002; 94003; 94640; 94660; 94760; 97110; 97161; 97530; A4357; A4421; A4649; A6196; A6212; A6213; A6243; A6250; A6253; A6255; A6257; A6258; A6266; A6446; A6449; A7000; A7015; A9270; C1750; C1758; C1769; C1894; G0257; J0171; J0692; J0885; J1170; J1450; J1644; J1650; J1815; J2001; J2060; J2185; J2250; J2405; J2543; J2916; J2997; J3370; J3475; J3480; J3490; J7030; J7060; J7120; P9016; P9035; P9045; P9047